=== PATIENT | female | born 1985 | race Caucasian/White ===

== ENCOUNTER 2025-03-05 05:32 | Day surgery (SDC) | payer OTHER, SELFPAY ==
--- NOTE | 2025-03-03 14:08 | PAT.ANESEVAL ---
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 When Was Last Pacemaker Check QUESTION #4 FULL TEXT: You/Your Family Experience fever (hyperthermia) with Anesthesia Last Oral Intake Last Oral intake: Last Oral Intake NPO since Meds taken in AM with sips of water? Meds patient instructed to take am of surgery PONV PONV - inside sales account manager: PONV - inside sales account manager Female Yes 03/03/25 09:55 HX of Motion Sickness Yes 03/03/25 09:55 HX of N/V After Surgery No 03/03/25 09:55 Non-Smoker Yes 03/03/25 09:55 Duration of Surgery greater No 03/03/25 09:55 than 60 minutes Number of Risk Factors 3 03/03/25 09:55 PONV Score Moderate Risk 03/03/25 09:55 Respiratory Assessment Respiratory Assessment - inside sales account manager: Respiratory Tract Infection Hx - inside sales account manager Hx Respiratory Tract Infection No 03/03/25 09:55 STOP Sleep Apnea STOP Sleep Apnea - inside sales account manager: STOP Sleep Apnea - inside sales account manager Hx Hypertension No 03/03/25 09:55 Hx Sleep Apnea No 03/03/25 09:55 CPAP BIPAP Do you snore loudly (louder No 03/03/25 09:55 than talking or can be heard Do you often feel tired/ No 03/03/25 09:55 fatigued/ sleepy during daytime? Has anyone observed you stop No 03/03/25 09:55 breathing during sleep? STOP Results Negative 03/03/25 09:55 QUESTION #5 FULL TEXT : Do you snore loudly (louder than talking or can be heard through closed doors)? 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 Specify any problems Hx of Preganancy in last 3 No 03/03/25 09:55 Months Nurse Filling Out Transfusion VCHRISTIN 03/03/25 09:55 & Questions: Date: 03/03/25 03/03/25 09:55 Time: :57 03/03/25 09:55 Patient unable to answer at this time (ie. confused, unrespo /Reproduction History /Reproductive History - inside sales account manager: /Reproductive Hx- inside sales account manager Hx Now No 03/03/25 09:55 Gestational Age (in weeks): EDC: Hx Hx Para Hx Section SAB No 03/03/25 09:55 PFSH Medical History (Updated 03/03/25 @ 10:02 by Shannan Mcgregor) Normal Holter exam Wears glasses Pulmonary embolism History of diverticulitis Non-smoker CPAP (continuous positive airway pressure) dependence Sleep apnea Cardiology follow-up encounter History of irregular heartbeat Vitamin D deficiency Tinnitus Vertigo Thyromegaly T12 vertebral fracture Split S2 (second heart sound) Rectal bleeding PCOS (polycystic ovarian syndrome) Parathyroid adenoma AMOR (obstructive sleep apnea) Migraine with aura Hyperphosphatemia HLD (hyperlipidemia) Hemorrhoid Dizziness DDD (degenerative disc disease), lumbar Chronic kidney disease, stage 3a Acute low back pain without sciatica Left nephrolithiasis LUQ pain Home Medications Medication Instructions Recorded Last Taken Type cholecalciferol (vitamin D3) 50 50 mcg PO QDAY 01/24/25 Unknown History mcg (2,000 unit) capsule multivitamin 1 tab PO QAM 01/24/25 Unknown History dicyclomine 20 mg tablet 20 mg PO TID PRN abdominal pain 01/27/25 Unknown Rx #20 tabs Allergy/AdvReac Type Severity Reaction Status Date / Time bacitracin Allergy Intermediate Other Verified 03/03/25 09:46 Family History Father Hypertension HLD (hyperlipidemia) Surgical History (Updated 03/03/25 @ 09:55 by Shannan Mcgregor) History of removal of skin mole S/P left knee arthroscopy Social History Smoking Status: Never smoker alcohol intake: current alcohol intake frequency: a few times a month Audit: Pertinent Findings Pertinent Findings EKG Perinent findings: 06/25/2021. Normal sinus rhythm. Consult pertinent findings: August 22, 2022. Dr. Schneider. 1. Pulmonary embolism-patient's been off Xarelto since December 2021 per the primary care provider. No further DVT or PEs. 2. Dizziness-Holter last year showed no significant arrhythmias. No further episode of dizziness this last year. Additional pertinent findings: Holter monitor. 07/26/2021. 1. Predominant rhythm is sinus. No episodes of atrial fibrillation/flutter, SVT, heart block, or ventricular tachycardia. 2. Patient reported symptoms did not correlate with any EKG changes. Recommendation Anesthesia Recommendation Anesthesia recommendation: OPTIMIZED for anesthesia
[2025-03-05] VITALS (8 sets, daily range): BP systolic 82–122; BP diastolic 44–86; PULSE 60–68; RESP 16–18; TEMP 36.4–36.8; O2SAT 97–99; BMI 37.4
--- OUTSIDE RECORDS SUMMARY | 2025-03-05 05:36 | XMS RPT_ITS | CCD ---
Author Organization [facility] Care Team Providers Care Field Installation Technician Name Role Phone MACY BREWER, GERMAINE Muse Primary Care Physician Unavailable Primary Care Provider GERMAINE Guerra MD Primary Care Physician ORLANDO DO, DR MENON Primary Care Physician ([id number] BRISA DIA DC Attending Unavailable ROMAR DO, DR MENON Primary Care Unavailable ROMAR DO, DR MENON Attending Unavailable ROMAR DO, DR MENON Primary Care Unavailable ROMAR DO, DR MENON Attending Unavailable ROMAR DO, DR MENON Primary Care Unavailable ROMAR DO, DR MENON Attending Unavailable ROMAR DO, DR MENON Primary Care Unavailable TOSCANO FEATURE WRITER-MALTER OPERATOR, RYANNE Attending Unavailabl e ROMAR DO, DR MENON Primary Care Unavailable ROMAR DO, DR MENON Attending Unavailable ROMAR DO, DR MENON Primary Care Unavailable ROMAR DO, DR MENON Primary Care Unavailable DORCAS FEATURE WRITER-MALTER OPERATOR, RYANNE Attending Unavailabl e TOSCANO FEATURE WRITER-MALTER OPERATOR, RYANNE Attending Unavailabl e ROMAR DO, DR MENON Primary Care Unavailable ROYCE EDGE Primary Care Unavailable ROYCE EDGE Attending Unavailable LENORA MANZANO MD Attending Unavailable ROYCE EDGE Primary Care Unavailable LENORA MANZANO MD Attending Unavailable ROYCE EDGE Primary Care Unavailable LENORA MANZANO MD Attending Unavailable ROYCE EDGE Primary Care Unavailable ROYCE EDGE Attending Unavailable ROYCE EDGE Primary Care Unavailable ROYCE EDGE Attending Unavailable ROYCE EDGE Primary Care Unavailable ROYCE EDGE Attending Unavailable ROYCE EDGE Primary Care Unavailable ROYCE EDGE Primary Care Unavailable LENORA MANZANO MD Attending Unavailable ROYCE EDGE Primary Care Unavailable CHOUJAA DO, JUHI Attending Unavailable ROYCE EDGE Primary Care Unavailable LENORA MANZANO MD Attending Unavailable ROYCE EDGE Primary Care Unavailable ROYCE EDGE Attending Unavailable ROYCE EDGE Primary Care Unavailable ROYCE EDGE Attending Unavailable Orlando WOODS, Dr. Menon Primary Care Provider Orlando WOODS, Dr. Menon Referring Provider Aj SORIANO-CKassie Attending Provider [phone] ORLANDO WOODS, DR MENON Attending Unavailable ORLANDO WOODS, DR MENON Primary Care Unavailable MERRITT FAN Attending Unavailable ORLANDO WOODS, DR MENON Primary Care Unavailable GUERLINE PATEL Attending U navailable ORLANDO WOODS, DR MENON Primary Care Unavailable Royce Edge Referring Unavailable Royce Edge Primary Care Unavailable Kassie Rocha Attending Unavailable Deon, Chad Attending Unavailable Royce Edge Referring Unavailable Royce Edge Primary Care Unavailable Allergies Allergy Classification Reported Allergen(s) Allergy Type Date of Onset Reaction(s) Facility (19 sources) Bacitracin; Translations: [bacitracin] Drug Allergy 5 Hot (qualifier value), Tender (qualifier value), Red color (finding) [facility] Comment on above: red, tenderness (1 source) Bacitracin Drug Allergy 5 [facility] Repository Medications Current Medications Medication Drug Class(es) Dates Sig (Normalized) Sig (Original) Alive Women's Energy (15 sources) Start: 11-08-2022 Alive [employer]'s Energy Oral, qDay, 0 Refill(s) Start Date: 11/08/22 Status: Ordered Repeat number: 1 Start: 11-08-2022 Alive [employer] Oral, qDay, 0 Refill(s) Start Date: 11/08/22 Status: Ordered cholecalciferol 0.05 mg oral capsule (1 source) Vitamin D Start: 01-24-2025 take 1 capsule by mouth once daily Cholecalciferol (Vitamin D3) 50 mcg (2,000 unit) capsule Active 50 ug PO daily January 24, 2025 12:00am Diclofenac (1 source) Nonsteroidal Anti-inflammatory Drug Start: 11-08-2022 diclofenac Oral, 0 Refill(s) Start Date: 11/08/22 Status: Ordered dicyclomine hydrochloride 20 mg oral tablet (1 source) Anticholinergic Start: 01-27-2025 take 1 tablet by mouth three times daily as needed for pain Dicyclomine 20 mg tablet Active 20 mg PO THREE TIMES A DAY as needed for abdominal pain January 27, 2025 12:00am Elderberry preparation (3 sources) Start: 08-01-2024 take 1 mg by mouth once daily elderberry 350 mg oral capsule mg cap(s), Oral, qDay, 0 Refill(s) Start Date: 08/01/24 Status: Ordered Repeat number: 1 fluconazole 150 mg oral tablet (2 sources) Azole Antifungal Start: 08-23-2021 take 1 tablet by mouth once fluconazole 150 mg oral tablet take 1 tablet by mouth A ONE TIME DOSE Start Date: 08/23/21 Status: Ordered Jose Luis 24 FE oral tablet (1 source) Start: 06-25-2021 take 1 tablet by mouth once daily Jose Luis 24 FE oral tablet Dose = 1 tab(s), Oral, qDay, # 84 tab(s), 0 Refill(s) Start Date: 06/25/21 Status: Ordered Misc Medication (20 sources) Start: 11-05-2024 Misc Medication 0 Refill(s), 99.9 Start Date: 11/05/24 Status: Ordered Repeat number: 1 Start: 11-08-2022 Misc Medicatio n 1, Oral, Daily, calcium complete, 0 Refill(s), 103.2 Start Date: 11/08/22 Status: Ordered Start: 11-08-2022 Misc Medicatio n 1, Daily, luis enrique apple cider, 0 Refill(s), 103.2 Start Date: 11/08/22 Status: Ordered Start: 11-08-2022 Misc Medicatio n 1, Daily, luis enrique superfruit, 0 Refill(s), 103.2 Start Date: 11/08/22 Status: Ordered Start: 11-08-2022 Misc Medicatio n 1, Oral, Daily, tristen out, 0 Refill(s), 103.2 Start Date: 11/08/22 Status: Ordered Start: 06-25-2021 Misc Medicatio n Vitalife shot 1 1/2 tsp daily, 0 Refill(s), 100 Start Date: 06/25/21 Status: Ordered Start: 06-25-2021 [facility] Evolv limitless betalain supplement, 0 Refill(s), 100 Start Date: 06/25/21 Status: Ordered Start: 06-25-2021 [facility] Evolv blaance horomone support, 0 Refill(s), 100 Start Date: 06/25/21 Status: Ordered Start: 06-25-2021 [facility] n Evolv immun immune support, 0 Refill(s), 100 Start Date: 06/25/21 Status: Ordered Multivitamin preparation (3 sources) Start: 11-27-2024 take 1 tablet by mouth once daily Multivitamin Dose = 1 tab(s), Oral, Daily, 0 Refill(s) Start Date: 11/27/24 Status: Ordered Repeat number: 1 Start: 06-25-2021 take 1 tablet by annabella th once daily Multivitamin Dose = 1 tab(s), Oral, Daily, Vitality, 0 Refill(s) Start Date: 06/25/21 Status: Ordered Multivitamin tablet (1 source) Start: 01-24-2025 Multivitamin t ablet Active 1 {tbl} PO EVERY MORNING January 24, 2025 12:00am rivaroxaban 20 mg oral tablet (2 sources) Factor Xa Inhibitor Start: 08-23-2021 take 1 tablet by mouth once daily Xarelto 20 mg oral tablet TAKE 1 TABLET BY MOUTH EVERY DAY Start Date: 08/23/21 Status: Ordered Start: 07-13-2021 End: 08-03-2021 Xarelto 15 mg oral tablet Do se : 15 mg = 1 tab(s), Oral, BID, with food, # 42 tab(s), 0 Refill(s), 104.5 Start Date: 07/13/21 Stop Date: 08/03/21 Status: Ordered Vitamin D3 (18 sources) Start: 06-25-2021 Vitamin D3 Dos e : 2,000 unit(s) = 1 tab(s), Oral, Daily, # 60 tab(s), 0 Refill(s) Start Date: 06/25/21 Status: Ordered Quantity: 60.0 Unit: tab(s) Repeat number: 1 Start: 06-25-2021 Vitamin D3 Dos e : 2,000 unit(s) = 1 tab(s), Oral, Daily, # 60 tab(s), 0 Refill(s) Start Date: 06/25/21 Status: Ordered Vitamin D3 50 mcg (2000 intl units) oral capsule (13 sources) Start: 11-08-2022 Vitamin D3 50 mcg (2000 intl units) oral capsule Dose : 50 mcg = 1 cap(s), Oral, qDay, # 60 cap(s), 0 Refill(s) Start Date: 11/08/22 Status: Ordered Quantity: 60.0 Unit: cap(s) Repeat number: 1 Start: 11-08-2022 Vitamin D3 50 mcg (2000 intl units) oral capsule Dose : 50 mcg = 1 cap(s), Oral, qDay, # 60 cap(s), 0 Refill(s) Start Date: 11/08/22 Status: Ordered Completed/Discontinued Medications Medication Drug Class(es) Dates Sig (Normalized) Sig (Original) methocarbamol 750 mg oral tablet (8 sources) Muscle Relaxant Start: 01-24-2025 End: 01-27-2025 take 2 tablets by mouth three times daily as needed Methocarbamol 750 mg tablet Discontinued 1500 mg PO THREE TIMES A DAY as needed January 24, 2025 12:00am January 27, 2025 8:59am Start: 07-03-2024 End: 07-10-2024 methocarbamol 750 mg oral ta blet Dose : 1,500 mg = 2 tab(s), Oral, TID, PRN Muscle spasm, Do not drive, operate heavy machinery, or drink alcohol while on this medication., # 42 tab(s), 0 Refill(s), Pharmacy: [facility] #[id number], 165.7, cm, 07/03/24 14:28:00 EST, Height, kg, 07/03/24 14:28:00 EST, Dosing Weight Start Date: 07/03/24 Stop Date: 07/10/24 Status: Ordered Quantity: 42.0 Unit: tab(s) Repeat number: 1 SUMAtriptan 50 mg oral tablet (18 sources) Serotonin-1b and Serotonin-1d Receptor Agonist Start: 01-24-2025 End: 01-27-2025 take 1 tablet by mouth once Sumatriptan Succinate 50 mg tablet Discontinued 50 mg PO ONCE January 24, 2025 12:00am January 27, 2025 8:59am Start: 08-23-2021 SUMAtriptan 50 mg oral tablet Dose : 50 mg = 1 tab(s), Oral, take 1 tablet by mouth if needed AT ONSET OF HEADACHE may repeat ... (REFER TO PRESCRIPTION NOTES). Start Date: 08/23/21 Status: Ordered Repeat number: 1 Problems Active Problems Problem Classification Problem Date Documented Da te Episodic/Chronic Abdominal pain (12 sources) Left upper quadrant pain; Translations: [Left upper quadrant pain] Onset: 4 Episodic Biliary tract disease (4 sources) Biliary calculus 07-15-2024 Episodic Calculus of urinary tract (11 sources) Kidney stone 07-03-2024 Episodic Chronic kidney disease (17 sources) Chronic kidney disease stage 2; Translations: [Chronic kidney disease stage 3A ] 11-08-2022 Chronic Chronic kidney disease (2 sources) Chronic kidney disease; Translations: [Chronic kidney disease, stage 3a] Onset: 5 Conditions associated with dizziness or vertigo (20 sources) Dizziness; Translations: [Vertigo] 06-25-2021 Episodic Deficiency and other anemia (2 sources) Anemia in chronic kidney disease; Translations: [Anemia in chronic kidney disease] Onset: 5 Chronic Disorders of lipid metabolism (20 sources) Hyperlipidemia; Translations: [Mixed hyperlipidemia] 06-25-2021 Chronic Comment on above: 12/04 modified ASCVD risk 0.8% 11/04 ascvd risk 0.8% Diverticulosis and diverticulitis (13 sources) Diverticulitis of colon; Translations: [Diverticulosis of colon] Onset: 5 07-15-2024 Chronic Gastrointestinal hemorrhage (16 sources) Rectal hemorrhage 11-08-2022 Episodic Headache; including migraine (16 sources) Migraine with aura 11-08-2022 Chronic Heart valve disorders (15 sources) Second heart sound split 12-26-2022 Episodic Hemorrhoids (18 sources) Hemorrhoids 09-12-2013 Episodic Immunizations and screening for infectious disease (2 sources) Encounter for screening for human papillomavirus (HPV); Translations: [Encounter for screening for human papillomavirus (HPV)] Onset: 5 Episodic Nutritional deficiencies (16 sources) Vitamin D deficiency 11-08-2022 Chronic Other and unspecified benign neoplasm (15 sources) Parathyroid adenoma 12-26-2022 Episodic Other bone disease and musculoskeletal deformities (4 sources) Osteitis condensans ilii 07-17-2024 Episodic Other complications of ; puerperium affecting management of mother (18 sources) Large for gestation age fetus 02-22-2016 Episodic Other complications of (18 sources) Term of male 02-22-2016 Episodic Other ear and sense organ disorders (15 sources) Lesion of right external ear canal 12-23-2022 Episodic Other ear and sense organ disorders (1 source) Disorder of external ear; Translations: [Disorder of right external ear, unspecified] Episodic Other endocrine disorders (16 sources) Polycystic ovary syndrome 11-11-2022 Chronic Other gastrointestinal disorders (1 source) Mass of right ovary 11-05-2024 Episodic Other non-traumatic joint disorders (1 source) Pain in right wrist; Translations: [Pain in right wrist] Onset: Episodic Other nutritional; endocrine; and metabolic disorders (2 sources) Obesity 09-12-2013 Chronic Other nutritional; endocrine; and metabolic disorders (16 sources) Body mass index 30+ - obesity 11-08-2022 Chronic Other nutritional; endocrine; and metabolic disorders (15 sources) Hyperphosphatemia 12-30-2022 Chronic Other skin disorders (18 sources) Keloid scar 09-12-2013 Episodic Pneumonia (except that caused by tuberculosis or sexually transmitted disease) (17 sources) Pneumonia (except that caused by tuberculosis or sexually transmitted disease) 08-23-2021 Pulmonary heart disease (17 sources) Pulmonary embolism; Translations: [H/O: pulmonary embolus] 07-13-2021 Episodic Comment on above: 07/04 Residual codes; unclassified (20 sources) Obstructive sleep apnea syndrome 06-25-2021 Chronic Spondylosis; intervertebral disc disorders; other back problems (18 sources) Degeneration of lumbar intervertebral disc 06-25-2021 Chronic Spondylosis; intervertebral disc disorders; other back problems (8 sources) Low back pain; Translations: [Low back pain, unspecified] Episodic Thyroid disorders (16 sources) Goiter 11-08-2022 Chronic Unclassified (2 sources) Breast feeding (infant) (observable entity) 02-22-2016 Comment on above: System added from do cumentation. Breast feeding Status documented as Yes on Admission Unclassified (18 sources) Pigmented nevus (morphologic abnormality) 09-12-2013 Comment on above: Scalp Unclassified (17 sources) History of SARS-CoV-2 07-13-2021 Unclassified (16 sources) Fracture of twelfth thoracic vertebra 11-08-2022 Viral infection (1 source) Disease caused by 2019-nCoV 08-23-2021 Past or Other Problems Problem Classification Problem Date Documented Da te Episodic/Chronic Other upper respiratory infections (4 sources) Acute upper respiratory infection, unspecified; Translations: [Acute pharyngitis, unspecified] Onset: 05-05-2023 Episodic Results Test Name Value Interpretation Reference Range Facility MR/[facility] 03-03-[facility]25 [facility] Medical Records Department [address] [place] [address] PAT - Anesthesia 03/03/25 1408 MR#: [id number] Acct: [id number] Name: LUC GARCIA Rep #: [id number] : 1985 39 From: Stiven Zepeda MD PCP: Dr. 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 When Was Last Pacemaker Check QUESTION #4 FULL TEXT: You/Your Family Experience fever (hyperthermia) with Anesthesia Last Oral Intake Last Oral intake: Last Oral Intake NPO since Meds taken in AM with sips of water? 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 Female Yes 03/03/25 09:55 HX of Motion Sickness Yes 03/03/25 09:55 HX of N/V After Surgery No 03/03/25 09:55 Non-Smoker Yes 03/03/25 09:55 Duration of Surgery greater No 03/03/25 09:55 than 60 minutes Number of Risk Factors 3 03/03/25 09:55 PONV Score Moderate Risk 03/03/25 09:55 Respiratory Assessment Respiratory Assessment - blow molding machine operator: Respiratory Tract Infection Hx - blow molding machine operator Hx Respiratory Tract Infection No 03/03/25 09:55 STOP Sleep Apnea STOP Sleep Apnea - blow molding machine operator: STOP Sleep Apnea - blow molding machine operator Hx Hypertension No 03/03/25 09:55 Hx Sleep Apnea No 03/03/25 09:55 CPAP BIPAP Do you snore loudly (louder No 03/03/25 09:55 than talking or can be heard Do you often feel tired/ No 03/03/25 09:55 fatigued/ sleepy during daytime? Has anyone observed you stop No 03/03/25 09:55 breathing during sleep? STOP Results Negative 03/03/25 09:55 QUESTION #5 FULL TEXT : Do you snore loudly (louder than talking or can be heard through closed doors)? 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 Specify any problems Hx of Preganancy in last 3 No 03/03/25 09:55 Months Nurse Filling Out Transfusion VCHRISTIN 03/03/25 09:55 Questions: Date: 03/03/25 03/03/25 09:55 Time: 09:57 03/03/25 09:55 Patient unable to answer at this time (ie. confused, unrespo /Reproductio n History /Reproductiv e History - blow molding machine operator: /Reproductiv e Hx- blow molding machine operator Hx Now No 03/03/25 09:55 Gestational Age (in weeks): EDC: Hx Hx Para Hx Section SAB No 03/03/25 09:55 PFSH Medical History (Updated 03/03/25 @ 10:02 by Shannan Mcgregor) Normal Holter exam Wears glasses Pulmonary embolism History of diverticulitis Non-smoker CPAP (continuous positive airway pressure) dependence Sleep apnea Cardiology follow-up encounter History of irregular heartbeat Vitamin D deficiency Tinnitus Vertigo Thyromegaly T12 vertebral fracture Split S2 (second heart sound) Rectal bleeding PCOS (polycystic ovarian syndrome) Parathyroid adenoma AMOR (obstructive sleep apnea) Migraine with aura Hyperphosphatemia HLD (hyperlipidemia) Hemorrhoid Dizziness DDD (degenerative disc disease), lumbar Chronic kidney disease, stage 3a Acute low back pain without sciatica Left nephrolithiasis LUQ pain Home Medications ???Medication ???Instructions ???Recorded ???Last Taken ???Type cholecalciferol (vitamin D3) 50 50 mcg PO QDAY 01/24/25 Unknown Hi story mcg (2,000 unit) capsule multivitamin 1 tab PO QAM 01/24/25 Unknown Hist ory dicyclomine 20 mg tablet 20 mg PO TID PRN abdominal pain Unknown Rx #20 tabs Allergy/ (more content not included)... Normal [facility] Gastroenterology Visit Repor ton 01-27-2025 Gastroenterology Visit Report [facility] [address] [place] [address] OFFICE VISIT Date of Service: 01/27/25 MR#: [id number] Acct: [id number] Name: LUC GARCIA Rep #: [id number] : 1985 Provider: NELI kessler Age/Sex: 39/F Location: [email or web address] Status: Signed Intake Intake Visit Reasons: DIVERTICULITIS Allergies bacitracin Allergy (Intermediate, Verified 01/27/25 08:59) Other Medications ???Medication ???Instructions ???Recorded ???Confirmed ???Type cholecalciferol (vitamin D3) 50 50 mcg PO QDAY 01/24/25 01/24/25 H istory mcg (2,000 unit) capsule multivitamin 1 tab PO QAM 01/24/25 01/24/25 His tory dicyclomine 20 mg tablet 20 mg PO TID PRN abdominal pain 01/27/25 Rx #20 tabs PFSH Medical History Vitamin D deficiency Tinnitus Vertigo Thyromegaly T12 vertebral fracture Split S2 (second heart sound) Rectal bleeding PCOS (polycystic ovarian syndrome) Parathyroid adenoma AMOR (obstructive sleep apnea) Migraine with aura Hyperphosphatemia HLD (hyperlipidemia) Hemorrhoid Dizziness DDD (degenerative disc disease), lumbar Chronic kidney disease, stage 3a Acute low back pain without sciatica Left nephrolithiasis LUQ pain Surgical History S/P left knee arthroscopy Family History Father Hypertension HLD (hyperlipidemia) Social History Smoking Status: Never smoker alcohol intake: current alcohol intake frequency: a few times a month HPI HPI Details: LUC GARCIA, is a 39 F who presents to the office today for establishment with [facility] regarding concerns for repeat diverticulitis. Referral received from general surgery for a colonoscopy to be completed prior to considering partial hemicolectomy due to recurrent episodes of diverticulitis in the same area of the colon. She had CTs of the abdomen and pelvis in July 2024 and November 2024, per "both demonstrated evidence of focal diverticulitis of the distal left colon/ proximal sigmoid. The inflammatory changes are much more visible and pronounced on the second CT in November which correlates with her symptoms which were significantly more severe in November when compared to July." She reports having gallstones without inflammation, digestive complaints, or pain in that area. In December she was prescribed a 10 day treatment regimen of Cipro and Flagyl for the colitis, and then subsequently needed drug therapy for a severe vaginal yeast infection. She denies difficulty chewing and swallowing, heartburn, reflux, nausea, emesis, abdominal bloating, constipation since starting daily fiber supplementation, diarrhea, hematochezia, and melena. Her last colonoscopy was in 2022 for hematochezia, found bleeding internal hemorrhoid which was removed and a single polyp that came back as a tubular adenoma. She does report chronic kidney disease stage III, which is being investigated. 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 She reports they suspect chronic NSAID use for the renal impairment. ROS Const Constitutional: No chills, fatigue, fever(s) or weight change Eyes Eyes: No change in vision ENT ENT: No abnormal hearing or difficulty swallowing Resp Respiratory: No cough Cardio Cardiology: Positive for leg pain with exertion; No chest pain at rest or chest pain with exertion Gastro GI: Positive for abdominal pain, heartburn and Blood in stool; No belching, bloating, change in bowel habits, change in stool character, coffee ground emesis, constipation, cramping, diarrhea, difficulty swallowing, feeling full early, excessive flatus, incontinent of stools, Vomiting blood/hematemesis, loose stools, Black,tarry stools, nausea/dyspepsia, pain with swallowing, vomiting or other Musc Musculoskeletal: Positive for joint pain, back pain, muscle cramps, muscle weakness, numbness, stiffness, tingling, Arthritis and leg pain with exertion Skin Skin: No yellowing of the eye or itchy eyes Neuro Neurology: Positive for numbness and tingling; No abnormal hearing Psych Psychiatric: No anxiety and No depression Endo Endocrine: No cold intolerance, fatigue, heat intolerance or weight change Aller/Imm Allergy/Immunologic: No food intolerance or itchy eyes Trell/Lymp Hematologic/Lymphatic : No easy bleeding or easy bruising Exam Const General: cooperative, healthy appearing, comfortable and no acute distress Nutritional Appearance: overweight Orientation: alert and oriented x3 HENMT Head: normal to inspection Ears: hearing grossly normal bilaterally Eyes General: appearance normal, both eyes and all re (more content not included)... Normal [facility] FCALon 01-10-2025 Calprotectin <30 Normal [facility] Comment on above: Result Comment: Calprotectin Concentration Interpretation Follow-up <80mcg/gm Normal None 80-160 mcg/gm Borderline Reevaluate in 4 to 6 weeks >160 mcg/gm Abnormal Repeat as clincally indicated Performed By: #### P TONI UA #### [facility] [address], [place] [address] [facility] [employer] [facility] Cytology Reporton 2024 [facility] Mail Clerk Cytology Report . Pathology Reports Accession: Collected Date/Time: Received Date/Time: Pathologist: [id number] 12/16/2024 14:02 EDT 12/16/2024 18:00 EDT [facility] [employer] [facility] Cytology Report SPECIMEN: Specimen Description: Liquid Prep w Imaging and HPV Specimen: cervix Screening or Diagnostic: screening RELEVANT HISTORY: LMP: 12/04/24 SPECIMEN ADEQUACY: SATISFACTORY FOR EVALUATION Endocervical/Transfor mational zone component present INTERPRETATION/RESULT S: NEGATIVE FOR INTRAEPITHELIAL LESION OR MALIGNANCY HIGH RISK HPV TESTING: Event Code Result HPV Interp See Interp HPVN HPV Interp Text: High Risk HPV Typing: NEGATIVE HPV types 16, 18, 31, 33, 35, 39, 45, 51, 52, 56, 58, 59, 66 and 68 DNA were undetectable or below the pre-set threshold. The gracia High-Risk HPV DNA Test is not intended for use as a screening device for Pap normal women under age 30 and is not intended to substitute for regular Pap screening. The gracia High-Risk HPV DNA Test is designed to augment existing methods for the detection of cervical disease and should be used in conjunction with clinical information derived from other diagnostic and screening tests, physical examinations and full medical history in accordance with appropriate patient management procedures. NOTE: A negative result does not preclude the presence of HPV infection because results depend on adequate specimen collection, absence of inhibitors and sufficient DNA to be detected. As of: 12/19/24 14:55 EDT COMMENT: This Pap Test was successfully processed and evaluated with the assistance of the [employer] Test Imaging System. Pathology Reports Accession: Collected Date/Time: Received Date/Time: Pathologist: [id number] 12/16/2024 14:02 EDT 12/16/2024 18:00 EDT Verified by Pathology report verified by [facility] Screened by: BOGDAN Electronically signed by Sindhu VARGAS (ASCP) Sign-Out Date: 12/19/2024 14:56 Performing Lab: [facility], [address] [place] [address] Pathology Dept Disclaimer The Pap test is a screening test for cervical cancer. As evidenced by published data, it is subject to both inherent false negative and false positive results. Your patient's results should be interpreted in context with pertinent clinical history including gynecological examination. Normal [facility] HPVon 12-19-2024 HPV Interp Normal See Interp HPVN [facility] Comment on above: Order Comment: Order placed by AP_HPV_ORDER rule from [id number] Result Comment: High Risk HPV Typing: NEGATIVE HPV types 16, 18, 31, 33, 35, 39, 45, 51, 52, 56, 58, 59, 66 and 68 DNA were undetectable or below the pre-set threshold. The gracia High-Risk HPV DNA Test is not intended for use as a screening device for Pap normal women under age 30 and is not intended to substitute for regular Pap screening. The gracia High-Risk HPV DNA Test is designed to augment existing methods for the detection of cervical disease and should be used in conjunction with clinical information derived from other diagnostic and screening tests, physical examinations and full medical history in accordance with appropriate patient management procedures. NOTE: A negative result does not preclude the presence of HPV infection because results depend on adequate specimen collection, absence of inhibitors and sufficient DNA to be detected. See [facility] HPVN Performed By: #### H PV #### [place] [address] HPV Source Cervix Normal [facility] Comment on above: Order Comment: Order placed by AP_HPV_ORDER rule from [id number] Performed By: #### H PV #### [place] [address] .Auto Diffon 11-21-2024 Basophil, Absolute 0.1 10 3/mcL Normal 0.0-0.3 [facility] Comment on above: Performed By: #### C MP, LIP, ANEU, GFR, CBC, ADIFF #### [address] [address] Basophils/100 WBC (Bld) 0.8 % Normal 0.0-2.5 [facility] Comment on above: Performed By: #### C MP, LIP, ANEU, GFR, CBC, ADIFF #### [address] [address] Eosinophil, Absolute 0.1 10 3/mcL Normal 0.0-0.7 [facility] Comment on above: Performed By: #### C MP, LIP, ANEU, GFR, CBC, ADIFF #### [address] [address] Eosinophils/100 WBC (Bld) 1.1 % Normal 0.0-6.0 [facility] Comment on above: Performed By: #### C MP, LIP, ANEU, GFR, CBC, ADIFF #### [address] [address] Lymphocyte, Absolute 1.6 10 3/mcL Normal 0.9-4.3 [facility] Comment on above: Performed By: #### C MP, LIP, ANEU, GFR, CBC, ADIFF #### [address] [address] Lymphocytes/100 WBC (Bld) 18.3 % Low 20.0-40.0 [facility] Comment on above: Performed By: #### C MP, LIP, ANEU, GFR, CBC, ADIFF #### [address] [address] Monocyte, Absolute 0.5 10 3/mcL Normal 0.1-1.4 [facility] Comment on above: Performed By: #### C MP, LIP, ANEU, GFR, CBC, ADIFF #### [address] [address] Monocytes/100 WBC (Bld) 5.5 % Normal 2.0-13.0 [facility] Comment on above: Performed By: #### C MP, LIP, ANEU, GFR, CBC, ADIFF #### [address] [address] Neutrophils/100 WBC (Bld) 74.3 % Normal 50.0-75.0 [facility] Comment on above: Performed By: #### C MP, LIP, ANEU, GFR, CBC, ADIFF #### [address] [address] .GFRon 11-21-2024 Estimated Glomerular Filtration Rate 60 ml/min/1.73sqm Normal [facility] Comment on above: Result Comment: Stages of Chronic Kidney Disease (CKD) Stage Description eGFR(ml/min/1.73 sq.m.) CKD 1 Normal kidney function or >=90 normal kindney function with possible kidney damage (ex. Proteinuria) CKD 2 Kidney damage with mild loss 60-89 of kidney function CKD 3a Mild to moderate loss of kidney 45-59 function CKD 3b Moderate to severe loss of 30-44 of kindey function CKD 4 Severe loss of kidney function 15-29 CKD 5 Kidney failure <15 Note: (go live 2024) the eGFR calculation was updated to the 2020 CKD-EPI creatinine equation without a race factor to calculate the eGFR results. Performed By: #### C MP, LIP, ANEU, GFR, CBC, ADIFF #### [place] [phone] .MDWon 11-21-2024 Monocyte Distribution Width 19.94 Normal 0.00-20.00 [facility] Comment on above: Result Comment: For ED adult patients suspected of sepsis, MDW<=20.0 does not rule out sepsis or risk of sepsis Performed By: #### C MP, LIP, ANEU, GFR, CBC, ADIFF #### [place] [address] .NEUABSon 11-21-2024 Neutrophil, Absolute 6.5 10 3/mcL Normal 2.3-8.1 [facility] Comment on above: Performed By: #### C MP, LIP, ANEU, GFR, CBC, ADIFF #### [place] [address] CBCon 11-21-2024 Erythrocyte distribution width (RBC) [Ratio] 14.3 % Normal 11.5-15.5 [facility] Comment on above: Performed By: #### C MP, LIP, ANEU, GFR, CBC, ADIFF #### [place] [address] Hematocrit (Bld) [Volume fraction] 39.2 % Normal 34.0-46.0 [facility] Comment on above: Performed By: #### C MP, LIP, ANEU, GFR, CBC, ADIFF #### [place] [address] Hgb 13.1 G/dL Normal 12.0-16.0 [facility] Comment on above: Performed By: #### C MP, LIP, ANEU, GFR, CBC, ADIFF #### [address] [address] MCH (RBC) [Entitic mass] 29.5 pg Normal 27.0-33.0 [facility] Comment on above: Performed By: #### C MP, LIP, ANEU, GFR, CBC, ADIFF #### [address] [address] MCHC 33.3 G/dL Normal 32.0-36.0 [facility] Comment on above: Performed By: #### C MP, LIP, ANEU, GFR, CBC, ADIFF #### [address] [address] MCV (RBC) [Entitic vol] 88.6 fL Normal 80.0-99.0 [facility] Comment on above: Performed By: #### C MP, LIP, ANEU, GFR, CBC, ADIFF #### [address] [address] Platelet 223 10 3/mcL Normal 150-450 [facility] Comment on above: Performed By: #### C MP, LIP, ANEU, GFR, CBC, ADIFF #### [address] [address] Platelet mean volume (Bld) [Entitic vol] 7.3 fL Normal 6.6-10.5 [facility] Comment on above: Performed By: #### C MP, LIP, ANEU, GFR, CBC, ADIFF #### [address] [address] RBC 4.42 10 6/mcL Normal 4.10-5.30 [facility] Comment on above: Performed By: #### C MP, LIP, ANEU, GFR, CBC, ADIFF #### [address] [address] WBC 8.7 10 3/mcL Normal 4.5-10.8 [facility] Comment on above: Performed By: #### C MP, LIP, ANEU, GFR, CBC, ADIFF #### [address] [address] CMPon 11-21-2024 Albumin Level 3.6 G/dL Normal 3.5-5.0 [facility] Comment on above: Performed By: #### C MP, LIP, ANEU, GFR, CBC, ADIFF #### [place] [phone] Albumin/Globulin [Mass ratio] 1.0 {ratio} Low 1.1-2.5 [facility] Comment on above: Performed By: #### C MP, LIP, ANEU, GFR, CBC, ADIFF #### [place] [address] ALP [Catalytic activity/Vol] 72 U/L Normal 40-135 [facility] Comment on above: Performed By: #### C MP, LIP, ANEU, GFR, CBC, ADIFF #### [place] [address] ALT [Catalytic activity/Vol] 19 U/L Normal 14-59 [facility] Comment on above: Performed By: #### C MP, LIP, ANEU, GFR, CBC, ADIFF #### [place] [id number] AST [Catalytic activity/Vol] 9 U/L Low 10-40 [facility] Comment on above: Performed By: #### C MP, LIP, ANEU, GFR, CBC, ADIFF #### [address] [address] Bili Total 0.4 mg/dL Normal 0.2-1.0 [facility] Comment on above: Result Comment: Use of this assay is not recommended for patients undergoing treatment with eltrombopag due to the potential for falsely elevated results. Performed By: #### C MP, LIP, ANEU, GFR, CBC, ADIFF #### [place] [phone] BUN/Creatinine Ratio 10 ratio Normal 7-27 [facility] Comment on above: Performed By: #### C MP, LIP, ANEU, GFR, CBC, ADIFF #### [address] [address] Calcium [Mass/Vol] 8.5 mg/dL Normal 8.4-10.2 [facility] Comment on above: Performed By: #### C MP, LIP, ANEU, GFR, CBC, ADIFF #### [place] [address] Chloride [Moles/Vol] 103 mmol/L Normal 98-107 [facility] Comment on above: Performed By: #### C MP, LIP, ANEU, GFR, CBC, ADIFF #### [place] [address] CO2 [Moles/Vol] 30 mmol/L High 22-29 [facility] Comment on above: Performed By: #### C MP, LIP, ANEU, GFR, CBC, ADIFF #### [place] [address] Creatinine [Mass/Vol] 1.17 mg/dL High 0.55-1.02 [facility] Comment on above: Result Comment: Test ing performed on Siemens Dimension EXL analyzer using a modified kinetic Ave technique. Performed By: #### C MP, LIP, ANEU, GFR, CBC, ADIFF #### [place] [address] Electrolyte Balance 5.0 mEq/L Normal 4.0-15.0 [facility] Comment on above: Performed By: #### C MP, LIP, ANEU, GFR, CBC, ADIFF #### [place] [address] Globulin 3.7 G/dL Normal 1.5-3.8 [facility] Comment on above: Performed By: #### C MP, LIP, ANEU, GFR, CBC, ADIFF #### [place] [address] Glucose [Mass/Vol] 86 mg/dL Normal 70-105 [facility] Comment on above: Performed By: #### C MP, LIP, ANEU, GFR, CBC, ADIFF #### [address] [address] Potassium [Moles/Vol] 3.7 mmol/L Normal 3.5-5.1 [facility] Comment on above: Performed By: #### C MP, LIP, ANEU, GFR, CBC, ADIFF #### [address] [address] Sodium [Moles/Vol] 138 mmol/L Normal 136-145 [facility] Comment on above: Performed By: #### C MP, LIP, ANEU, GFR, CBC, ADIFF #### [address] [address] Total Protein 7.3 G/dL Normal 6.4-8.2 [facility] Comment on above: Performed By: #### C MP, LIP, ANEU, GFR, CBC, ADIFF #### [address] [address] Urea nitrogen [Mass/Vol] 12 mg/dL Normal 7-18 [facility] Comment on above: Performed By: #### C MP, LIP, ANEU, GFR, CBC, ADIFF #### [address] [address] [address] ABD/PELVIS W/ IV CONTRAST ONLYon 11-21-2024 CT ABD/PELVIS W/ IV CONTRAST ONLY ORIGINAL EXAMINATION: CT OF THE ABDOMEN AND PELVIS WITH CONTRAST11/21/2024 9:[address] ABDOMEN/PELVIS WITH CONTRAST TECHNIQUE: CT of the abdomen and pelvis was performed with the administration of intravenous contrast. Multiplanar reformatted images are provided for review. Automated exposure control, iterative reconstruction, and/or weight based adjustment of the mA/kV was utilized to reduce the radiation dose to as low as reasonably achievable. COMPARISON: CT abdomen pelvis July 09, 2024 HISTORY: ORDERING SYSTEM PROVIDED HISTORY: Reason for Exam: Pt c/o lower abd and L flank pain pain FINDINGS: The size, density, and morphology of the liver, spleen, adrenals, kidneys, pancreas and unopacified loops of bowel are unremarkable. Layering calcifications within the gallbladder. The opacified aorta demonstrates normal size and morphology without aneurysmal dilation or dissection. There are no enlarged lymph nodes by pathologic size criteria. Wall thickening of the distal descending and proximal sigmoid colon with involved diverticulum. No evidence for gross perforation or abscess formation. Stranding changes of the adjacent mesentery. Appendix is normal. There is no free fluid within the pelvis. The bladder and pelvic organs have an unremarkable CT appearance. The osseous structures are without gross lytic or sclerotic lesion. The lung bases are clear. IMPRESSION: Recurrent inflammation of the distal descending colon with circumferential wall thickening while these findings may be secondary to colitis or diverticulitis underlying mass is not excluded given the appearance. Further evaluation may be obtained with colonoscopy. Interpreted by: Nilson Poe MD Preliminary Report By: Nilson Poe MD Electronically signed By Nilson Poe MD Dictated Date: 11/21/2024 9:27:28 PM Prelim Date: 11/21/2024 9:30:03 PM Sign Date: 11/21/2024 9:30:03 PM Ordering Provider: JUHI GUAJARDO Normal [facility] LIPon 11-21-2024 Lipase Level 15 U/L Low 16-77 [facility] Comment on above: Performed By: #### C MP, LIP, ANEU, GFR, CBC, ADIFF #### [place] [phone] PREGUon 11-21-2024 HCG ( test) Ql (U) Negative Normal [facility] Comment on above: Performed By: #### P REGU, UA #### [place] [address] test (u) int Not detected Invalid Interpretation Code [facility] Comment on above: Performed By: #### P REGU, UA #### [address] [address] UAon 11-21-2024 Color (U) Yellow Normal [facility] Comment on above: Performed By: #### P REGU, UA #### [address] [address] Glucose (U) [Mass/Vol] Negative Normal Negative [facility] Comment on above: Performed By: #### P REGU, UA #### [address] [address] Ketones Ql (U) Negative Normal Negative [facility] Comment on above: Performed By: #### P REGU, UA #### [place] [address] UA Appear Clear Normal Clear [facility] Comment on above: Performed By: #### P REGU, UA #### [place] [address] UA Blood Negative Normal Negative [facility] Comment on above: Performed By: #### P REGU, UA #### [place] [address] UA Leuk Est Negative Normal Negative [facility] Comment on above: Performed By: #### P REGU, UA #### [place] [address] UA Nitrite Negative Normal Negative [facility] Comment on above: Performed By: #### P REGU, UA #### [place] [address] UA pH 8.0 Normal 5.0 - 8.0 [facility] Comment on above: Performed By: #### P REGU, UA #### [place] [address] UA Protein Negative Normal Negative [facility] Comment on above: Performed By: #### P REGU, UA #### [place] [address] UA Spec Grav 1.020 Normal 1.015-1.025 [facility] Comment on above: Performed By: #### P REGU, UA #### [place] [address] UA Specimen Type Void Normal [facility] Comment on above: Performed By: #### P REGU, UA #### [place] [address] UA Urobilinogen 0.2 E.U./dL Normal 0.2-1.0 [facility] Comment on above: Performed By: #### P TONI, UA #### [place] [phone] [place] [address] Urobilinogen (U) [Mass/Vol] Negative Normal Negative [facility] Comment on above: Performed By: #### P TONI, UA #### [place] [phone] [place] [address] US PELVIS NON-OB W/TRANSVAGI NALon 11-13-2024 US PELVIS NON-OB W/TRANSVAGINAL ORIGINAL EXAMINATION: TRANSVAGINAL PELVIC ULTRASOUND 11/12/2024 TECHNIQUE: Transvaginal pelvic ultrasound was performed. COMPARISON: CT abdomen pelvis 07/09/2024 HISTORY: ORDERING SYSTEM PROVIDED HISTORY: Reason for Exam: right groin pain, right adnexal mass on CT All images are recorded and archived. FINDINGS: Measurements: Uterus: 10.5 x 5.9 x 6.7 cm Endometrial stripe: 8 mm Right Ovary:2.7 x 1.8 x 2.8 cm Left Ovary: 2.5 x 2.3 x 2.3 cm Ultrasound Findings: Uterus: Uterus demonstrates normal myometrial echotexture. Multiple subcentimeter nabothian cysts are appreciated. Endometrial stripe: Endometrial stripe is within normal limits. Right Ovary: Right ovary is within normal limits. Left Ovary: Left ovary is within normal limits. Appropriate venous and arterial blood flow seen in both ovaries. There is no discrete ovarian mass. Free Fluid: No evidence of free fluid. IMPRESSION: Unremarkable pelvic ultrasound. Previous right ovarian mass has resolved. Interpreted by: Maximino Thornton DO Preliminary Report By: Maximino Thornton DO Electronically signed By Maximino Thornton DO Dictated Date: 11/13/2024 8:27:34 AM Prelim Date: 11/13/2024 8:30:26 AM Sign Date: 11/13/2024 8:30:26 AM Ordering Provider: ROYCE Moreland [facility] .Auto Diffon 11-05-2024 Basophil, Absolute 0.1 10 3/mcL Normal 0.0-0.2 [facility] Comment on above: Performed By: #### P LUL ISAACS UA #### [place] [phone] Basophils/100 WBC (Bld) 1.0 % Normal 0.0-2.5 [facility] Comment on above: Performed By: #### P LUL ISAACS, UA #### [address] [address] Eosinophil, Absolute 0.1 10 3/mcL Normal 0.0-0.7 [facility] Comment on above: Performed By: #### P LUL IASACS, UA #### [address] [address] Eosinophils/100 WBC (Bld) 2.0 % Normal 0.0-7.0 [facility] Comment on above: Performed By: #### P LUL ISAACS, UA #### [address] [address] Lymphocyte, Absolute 2.2 10 3/mcL Normal 0.9-4.3 [facility] Comment on above: Performed By: #### P LUL ISAACS, UA #### [address] [address] Lymphocytes/100 WBC (Bld) 30.8 % Normal 20.0-40.0 [facility] Comment on above: Performed By: #### P LUL ISAACS, UA #### [address] [address] Monocyte, Absolute 0.6 10 3/mcL Normal 0.1-1.4 [facility] Comment on above: Performed By: #### P LUL ISAACS, UA #### [address] [address] Monocytes/100 WBC (Bld) 8.9 % Normal 2.0-13.0 [facility] Comment on above: Performed By: #### P LUL ISAACS, UA #### [address] [address] Neutrophils/100 WBC (Bld) 57.3 % Normal 50.0-75.0 [facility] Comment on above: Performed By: #### P LUL ISAACS UA #### [address] [address] .GFRon 11-05-2024 Estimated Glomerular Filtration Rate 61 ml/min/1.73sqm Normal [facility] Comment on above: Result Comment: Stages of Chronic Kidney Disease (CKD) Stage Description eGFR(ml/min/1.73 sq.m.) CKD 1 Normal kidney function or >=90 normal kindney function with possible kidney damage (ex. Proteinuria) CKD 2 Kidney damage with mild loss 60-89 of kidney function CKD 3a Mild to moderate loss of kidney 45-59 function CKD 3b Moderate to severe loss of 30-44 of kindey function CKD 4 Severe loss of kidney function 15-29 CKD 5 Kidney failure <15 Note: (go live 2024) the eGFR calculation was updated to the 2020 CKD-EPI creatinine equation without a race factor to calculate the eGFR results. Performed By: #### P LUL ISAACS UA #### [place] [address] .NEUABSon 11-05-2024 Neutrophil, Absolute 4.2 10 3/mcL Normal 2.3-8.1 [facility] Comment on above: Performed By: #### LUL BAUTISTA UA #### [place] [phone] CBCon 11-05-2024 Erythrocyte distribution width (RBC) [Ratio] 14.7 % Normal 11.5-15.5 [facility] Comment on above: Performed By: #### P LUL ISAACS UA #### [place] [phone] Hematocrit (Bld) [Volume fraction] 41.4 % Normal 34.0-46.0 [facility] Comment on above: Performed By: #### P LUL ISAACS UA #### [place] [address] Hgb 13.6 G/dL Normal 12.0-16.0 [facility] Comment on above: Performed By: #### P LUL ISAACS, UA #### [address] [address] MCH (RBC) [Entitic mass] 29.1 pg Normal 27.0-33.0 [facility] Comment on above: Performed By: #### LUL BAUTISTA UA #### [address] [address] MCHC 32.7 G/dL Normal 32.0-36.0 [facility] Comment on above: Performed By: #### LUL BAUTISTA, UA #### [address] [address] MCV (RBC) [Entitic vol] 89.0 fL Normal 80.0-99.0 [facility] Comment on above: Performed By: #### LUL BAUTISTA UA #### [address] [address] Platelet 310 10 3/mcL Normal 150-450 [facility] Comment on above: Performed By: #### LUL BAUTISTA UA #### [address] [address] Platelet mean volume (Bld) [Entitic vol] 7.5 fL Normal 6.6-10.5 [facility] Comment on above: Performed By: #### LUL BAUTISTA UA #### [address] [address] RBC 4.65 10 6/mcL Normal 4.10-5.30 [facility] Comment on above: Performed By: #### LUL BAUTISTA UA #### [address] [address] WBC 7.3 10 3/mcL Normal 4.5-10.8 [facility] Comment on above: Performed By: #### LUL BAUTISTA UA #### [address] [address] CMPon 11-05-2024 Albumin Level 3.5 G/dL Normal 3.5-5.0 [facility] Comment on above: Performed By: #### P LUL ISAACS, UA #### [address] [address] Albumin/Globulin [Mass ratio] 0.9 {ratio} Low 1.1-2.5 [facility] Comment on above: Performed By: #### P LUL ISAACS, UA #### [address] [address] ALP [Catalytic activity/Vol] 67 U/L Normal 40-135 [facility] Comment on above: Performed By: #### P LUL ISAACS, UA #### [address] [address] ALT [Catalytic activity/Vol] 16 U/L Normal 14-59 [facility] Comment on above: Performed By: #### P LUL ISAACS, UA #### [place] [phone] AST [Catalytic activity/Vol] 10 U/L Normal 10-40 [facility] Comment on above: Performed By: #### P LUL ISAACS, UA #### [address] [address] Bili Total 0.4 mg/dL Normal 0.2-1.0 [facility] Comment on above: Result Comment: Use of this assay is not recommended for patients undergoing treatment with eltrombopag due to the potential for falsely elevated results. Performed By: #### P LUL ISAACS, UA #### [address] [address] BUN/Creatinine Ratio 13 ratio Normal 7-27 [facility] Comment on above: Performed By: #### P LUL ISAACS, UA #### [address] [address] Calcium [Mass/Vol] 9.2 mg/dL Normal 8.4-10.2 [facility] Comment on above: Performed By: #### P RULUL Espinoza, UA #### [address] [address] Chloride [Moles/Vol] 103 mmol/L Normal 98-107 [facility] Comment on above: Performed By: #### LUL BAUTISTA UA #### [address] [address] CO2 [Moles/Vol] 30 mmol/L High 22-29 [facility] Comment on above: Performed By: #### LUL BAUTISTA, UA #### [place] [address] Creatinine [Mass/Vol] 1.16 mg/dL High 0.55-1.02 [facility] Comment on above: Result Comment: Test ing performed on Siemens Dimension EXL analyzer using a modified kinetic Ave technique. Performed By: #### LUL BAUTISTA UA #### [place] [address] Electrolyte Balance 7.0 mEq/L Normal 4.0-15.0 [facility] Comment on above: Performed By: #### LUL BAUTISTA, UA #### [place] [address] Globulin 3.9 G/dL High 1.5-3.8 [facility] Comment on above: Performed By: #### LUL BAUTISTA UA #### [place] [address] Glucose [Mass/Vol] 80 mg/dL Normal 70-105 [facility] Comment on above: Performed By: #### LUL BAUTISTA, UA #### [place] [address] Potassium [Moles/Vol] 4.0 mmol/L Normal 3.5-5.1 [facility] Comment on above: Performed By: #### LUL BAUTISTA, UA #### [place] [address] Sodium [Moles/Vol] 140 mmol/L Normal 136-145 [facility] Comment on above: Performed By: #### P RUR, CRUR, UA #### [place] [phone] [place], [place] [address] Total Protein 7.4 G/dL Normal 6.4-8.2 [facility] Comment on above: Performed By: #### P RUR, CRUR, UA #### [place] [phone] [place], [place] [address] Urea nitrogen [Mass/Vol] 15 mg/dL Normal 7-18 [facility] Comment on above: Performed By: #### P RUR, CRUR, UA #### [address] [address] LIPon 11-05-2024 Lipase Level 18 U/L Normal 16-77 [facility] Comment on above: Performed By: #### P RUR, CRUR, UA #### [address] [id number] CRURon 08-20-2024 U Creatinine 97.7 mg/dL Normal [facility] Comment on above: Performed By: #### P RUR, CRUR, UA #### [address] [address] LABORATORYOrdered By: Liam Redmond on 08-20-2024 Appearance (U) Clear (08/20/24 9:15 AM) Normal Clear AO Auto Urine SS Bilirubin Ql (U) Negative (08/20/24 9:15 AM) Normal Negative AO Auto Urine SS Color (U) Yellow (08/20/24 9:15 AM) Normal AO Auto Urine SS Glucose Test strip (U) [Mass/Vol] Negative Normal Negative AO Auto Urine SS Hemoglobin Auto test strip (U) [Mass/Vol] Negative (08/20/24 9:15 AM) Normal Negative AO Auto Urine SS Ketones Ql (U) Negative Normal Negative AO Auto Ur ine SS UA Leuk Est Negative (08/20/24 9:15 AM) Normal Negative AO Auto Urine SS UA Nitrite Negative (08/20/24 9:15 AM) Normal Negative AO Auto Urine SS UA pH 6.0 (08/20/24 9:15 AM) Normal 5.0 - 8.0 AO Auto Urine SS UA Protein Negative Normal Negative AO Auto Urine SS UA Spec Grav >=1.030 *ABN* (08/20/24 9:15 AM) Invalid Interpretation Code 1.015-1.025 AO Auto Urine SS UA Specimen Type Clean Catch (08/20/24 9:15 AM) Normal AO Auto Urine SS UA Urobilinogen 0.2 E.U./dL Normal 0.2-1.0 AO Auto Urine SS LABORATORYOrdered By: SYSTEM SYSTEM on 08-20-2024 Creatinine (U) [Mass/Vol] 97.7 mg/dL Invalid Interpretation Code AO ADM SS Protein (U) [Mass/Vol] 8 mg/dL Invalid Interpretation Code AO ADM SS PRURon 08-20-2024 U Protein 8 mg/dL Normal [facility] Comment on above: Performed By: #### P RUR, CRUR, UA #### [place] [address] UAon 08-20-2024 Color (U) Yellow Normal [facility] Comment on above: Performed By: #### P RUR, CRUR, UA #### [place] [address] Glucose (U) [Mass/Vol] Negative Normal Negative [facility] Comment on above: Performed By: #### P RUR, CRUR, UA #### [place] [address] Ketones Ql (U) Negative Normal Negative [facility] Comment on above: Performed By: #### P RUR, CRUR, UA #### [place] [address] UA Appear Clear Normal Clear [facility] Comment on above: Performed By: #### P RUR, CRUR, UA #### [place] [address] UA Blood Negative Normal Negative [facility] Comment on above: Performed By: #### P RUR, CRUR, UA #### [place] [id number] UA Leuk Est Negative Normal Negative [facility] Comment on above: Performed By: #### P RUR, CRUR, UA #### [place] [address] UA Nitrite Negative Normal Negative [facility] Comment on above: Performed By: #### P RUR, CRUR, UA #### [place] [address] UA pH 6.0 Normal 5.0 - 8.0 [facility] Comment on above: Performed By: #### P RUR, CRUR, UA #### [place] [address] UA Protein Negative Normal Negative [facility] Comment on above: Performed By: #### P RUR, CRUR, UA #### [place] [address] UA Spec Grav >=1.030 Abnormal 1.015-1.025 [facility] Comment on above: Performed By: #### P RUR, CRUR, UA #### [place] [address] UA Specimen Type Clean Catch Normal [facility] Comment on above: Performed By: #### P RUR, CRUR, UA #### [place] [address] UA Urobilinogen 0.2 E.U./dL Normal 0.2-1.0 [facility] Comment on above: Performed By: #### P RUR, CRUR, UA #### [place] [address] Urobilinogen (U) [Mass/Vol] Negative Normal Negative [facility] Comment on above: Performed By: #### P RUR, CRUR, UA #### [place] [address] .Auto Diffon 08-19-2024 Basophil, Absolute 0.0 10 3/mcL Normal 0.0-0.2 [facility] Comment on above: Performed By: #### P RUR, CRUR, UA #### [place] [address] Basophils/100 WBC (Bld) 0.7 % Normal 0.0-2.5 [facility] Comment on above: Performed By: #### P LUL ISAACS UA #### [address] [address] Eosinophil, Absolute 0.1 10 3/mcL Normal 0.0-0.7 [facility] Comment on above: Performed By: #### P LUL ISAACS, UA #### [address] [address] Eosinophils/100 WBC (Bld) 2.3 % Normal 0.0-7.0 [facility] Comment on above: Performed By: #### P LUL ISAACS UA #### [address] [address] Lymphocyte, Absolute 1.9 10 3/mcL Normal 0.9-4.3 [facility] Comment on above: Performed By: #### P LUL ISAACS UA #### [address] [address] Lymphocytes/100 WBC (Bld) 34.6 % Normal 20.0-40.0 [facility] Comment on above: Performed By: #### P LUL ISAACS, UA #### [address] [address] Monocyte, Absolute 0.4 10 3/mcL Normal 0.1-1.4 [facility] Comment on above: Performed By: #### P LUL ISAACS, UA #### [address] [address] Monocytes/100 WBC (Bld) 6.8 % Normal 2.0-13.0 [facility] Comment on above: Performed By: #### P LUL ISAACS, UA #### [address] [address] Neutrophils/100 WBC (Bld) 55.6 % Normal 50.0-75.0 [facility] Comment on above: Performed By: #### P RUR, CRUR, UA #### [address] [address] .GFRon 08-19-2024 GFR 59 ml/min/1.73sqm Normal [facility] Comment on above: Result Comment: GFR Population mean for , Non- Americans Ages 20-29 = 116 mL/min/1.73 sq.m. Ages 30-39 = 107 mL/min/1.73 sq.m. Ages 40-49 = 99 mL/min/1.73 sq.m. Ages 50-59 = 93 mL/min/1.73 sq.m. Ages 60-69 = 85 mL/min/1.73 sq.m. Ages 70+ = 75 mL/min/1.73 sq.m. Chronic Kidney Disease: Less than 60 mL/min/1.73 square meters End Stage Renal Disease: Less than 15 mL/min/1.73 square meters Performed By: #### P RUR CRSELENE, UA #### [address] [address] GFR Non- 49 ml/min/1.73sqm Normal [facility] Comment on above: Result Comment: GFR Population mean for , Non- Americans Ages 20-29 = 116 mL/min/1.73 sq.m. Ages 30-39 = 107 mL/min/1.73 sq.m. Ages 40-49 = 99 mL/min/1.73 sq.m. Ages 50-59 = 93 mL/min/1.73 sq.m. Ages 60-69 = 85 mL/min/1.73 sq.m. Ages 70+ = 75 mL/min/1.73 sq.m. Chronic Kidney Disease: Less than 60 mL/min/1.73 square meters End Stage Renal Disease: Less than 15 mL/min/1.73 square meters Performed By: #### P RUR CRSELENE, UA #### [address] [address] .NEUABSon 08-19-2024 Neutrophil, Absolute 3.0 10 3/mcL Normal 2.3-8.1 [facility] Comment on above: Performed By: #### P RUR CRUR, UA #### [address] [address] CBCon 08-19-2024 Erythrocyte distribution width (RBC) [Ratio] 13.7 % Normal 11.5-15.5 [facility] Comment on above: Performed By: #### P LUL ISAACS, UA #### [place] [id number] Hematocrit (Bld) [Volume fraction] 38.1 % Normal 34.0-46.0 [facility] Comment on above: Performed By: #### P LUL ISAACS, UA #### [place] [address] Hgb 12.7 G/dL Normal 12.0-16.0 [facility] Comment on above: Performed By: #### LUL BAUTISTA, UA #### [place] [id number] MCH (RBC) [Entitic mass] 29.5 pg Normal 27.0-33.0 [facility] Comment on above: Performed By: #### LUL BAUTISTA, UA #### [place] [address] MCHC 33.4 G/dL Normal 32.0-36.0 [facility] Comment on above: Performed By: #### LUL BAUTISTA, UA #### [place] [phone] MCV (RBC) [Entitic vol] 88.5 fL Normal 80.0-99.0 [facility] Comment on above: Performed By: #### P LUL ISAACS, UA #### [place] [id number] Platelet 307 10 3/mcL Normal 150-450 [facility] Comment on above: Performed By: #### P LUL ISAACS, UA #### [place] [address] Platelet mean volume (Bld) [Entitic vol] 7.2 fL Normal 6.6-10.5 [facility] Comment on above: Performed By: #### LUL BAUTISTA UA #### [place] [address] RBC 4.31 10 6/mcL Normal 4.10-5.30 [facility] Comment on above: Performed By: #### LUL BAUTISTA UA #### [place] [address] WBC 5.4 10 3/mcL Normal 4.5-10.8 [facility] Comment on above: Performed By: #### LUL BAUTISTA UA #### [place] [address] Trini 08-19-2024 Ferritin [Mass/Vol] 189.0 ng/mL Normal 8.0-252.0 [facility] Comment on above: Performed By: #### LUL BAUTISTA UA #### [place] [address] FESon 08-19-2024 Iron [Mass/Vol] 69 ug/dL Normal 50-170 [facility] Comment on above: Performed By: #### LUL BAUTISTA UA #### [place] [address] Iron Sat 24 % Normal [facility] Comment on above: Performed By: #### LUL BAUTISTA UA #### [place] [address] TIBC 284 mcg/dL Normal 250-450 [facility] Comment on above: Performed By: #### LUL BAUTISTA UA #### [place] [address] LABORATORYOrdered By: SYSTEM SYSTEM on 08-19-2024 Albumin BCP dye [Mass/Vol] 3.4 G/dL Low 3.5 - 5.0 G/dL AO ADM SS Basophils (Bld) [#/Vol] 0.0 103/mcL Normal 0.0 - 0.2 10^3/mcL AO Workflow SS Basophils/100 WBC (Bld) 0.7 % Normal 0.0 - 2.5 % AO Workflow SS Calcium [Mass/Vol] 9.0 mg/dL Normal 8.4 - 10. 2 mg/dL AO ADM SS Chloride [Moles/Vol] 104 mmol/L Normal 98 - 10 7 mmol/L AO ADM SS CO2 [Moles/Vol] 32 mmol/L High 22 - 29 mmol/L AO ADM SS Creatinine [Mass/Vol] 1.22 mg/dL High 0.55 - 1.02 mg/dL AO ADM SS Comment on above: Interpretive Data: T esting performed on [employer] Dimension EXL analyzer using a modified kinetic Ave technique. Electrolyte Balance 7.0 mEq/L Normal 4.0 - 15 .0 mEq/L AO ADM SS Eosinophil, Absolute 0.1 103/mcL Normal 0.0 - 0 .7 10^3/mcL AO Workflow SS Eosinophils/100 WBC (Bld) 2.3 % Normal 0.0 - 7.0 % AO Workflow SS Erythrocyte distribution width (RBC) [Ratio] 13.7 % Normal 11.5 - 15.5 % AO Workflow SS Ferritin [Mass/Vol] 189.0 ng/mL Normal 8.0 - 25 2.0 ng/mL AO ADM SS GFR/1.73 sq M.predicted among blacks MDRD (S/P/Bld) [Vol rate/Area] 59 ml/min/1.73sqm Invalid Interpretation Code AO Chemistry S Comment on above: Interpretive Data: GFR Population mean for , Non- Americans Ages 20-29 = 116 mL/min/1.73 sq.m. Ages 30-39 = 107 mL/min/1.73 sq.m. Ages 40-49 = 99 mL/min/1.73 sq.m. Ages 50-59 = 93 mL/min/1.73 sq.m. Ages 60-69 = 85 mL/min/1.73 sq.m. Ages 70+ = 75 mL/min/1.73 sq.m. Chronic Kidney Disease: Less than 60 mL/min/1.73 square meters End Stage Renal Disease: Less than 15 mL/min/1.73 square meters GFR/1.73 sq M.predicted among non-blacks MDRD (S/P/Bld) [Vol rate/Area] 49 ml/min/1.73sqm Invalid Interpretation Code AO Chemistry S Comment on above: Interpretive Data: GFR Population mean for , Non- Americans Ages 20-29 = 116 mL/min/1.73 sq.m. Ages 30-39 = 107 mL/min/1.73 sq.m. Ages 40-49 = 99 mL/min/1.73 sq.m. Ages 50-59 = 93 mL/min/1.73 sq.m. Ages 60-69 = 85 mL/min/1.73 sq.m. Ages 70+ = 75 mL/min/1.73 sq.m. Chronic Kidney Disease: Less than 60 mL/min/1.73 square meters End Stage Renal Disease: Less than 15 mL/min/1.73 square meters Glucose [Mass/Vol] 87 mg/dL Normal 70 - 105 mg/dL AO ADM SS Hematocrit (Bld) [Volume fraction] 38.1 % Normal 34.0 - 46.0 % AO Workflow SS Hemoglobin (Bld) [Mass/Vol] 12.7 G/dL Normal 12.0 - 16.0 G/dL AO Workflow SS Iron [Mass/Vol] 69 ug/dL Normal 50 - 170 mcg/dL AO ADM SS Iron binding capacity [Mass/Vol] 284 mcg/dL Normal 250 - 450 mcg/dL AO ADM SS Iron Sat 24 % Invalid Interpretation Code AO ADM SS Lymphocytes (Bld) [#/Vol] 1.9 103/mcL Normal 0.9 - 4.3 10^3/mcL AO Workflow SS Lymphocytes/100 WBC (Bld) 34.6 % Normal 20.0 - 40.0 % AO Workflow SS MCH (RBC) [Entitic mass] 29.5 pg Normal 27.0 - 33.0 pg AO Workflow SS MCHC 33.4 G/dL Normal 32.0 - 36.0 G/dL AO Workflow SS MCV (RBC) [Entitic vol] 88.5 fL Normal 80.0 - 99.0 fL AO Workflow SS Monocytes (Bld) [#/Vol] 0.4 103/mcL Normal 0.1 - 1.4 10^3/mcL AO Workflow SS Monocytes/100 WBC (Bld) 6.8 % Normal 2.0 - 13.0 % AO Workflow SS Neutrophils (Bld) [#/Vol] 3.0 103/mcL Normal 2.3 - 8.1 10^3/mcL AO Workflow SS Neutrophils/100 WBC (Bld) 55.6 % Normal 50.0 - 75.0 % AO Workflow SS Parathyrin.intact [Mass/Vol] 53.9 pg/mL Normal 18.5 - 88.0 pg/mL AH ADM SS Phosphate [Mass/Vol] 4.3 mg/dL Normal 2.7 - 4 .5 mg/dL AO ADM SS Platelet mean volume (Bld) [Entitic vol] 7.2 fL Normal 6.6 - 10.5 fL AO Workflow SS Platelets (Bld) [#/Vol] 307 103/mcL Normal 150 - 450 10^3/mcL AO Workflow SS Potassium [Moles/Vol] 4.4 mmol/L Normal 3.5 - 5.1 mmol/L AO ADM SS RBC (Bld) [#/Vol] 4.31 106/mcL Normal 4.10 - 5.3 0 10^6/mcL AO Workflow SS Sodium [Moles/Vol] 143 mmol/L Normal 136 - 145 mmol/L AO ADM SS Urea nitrogen [Mass/Vol] 16 mg/dL Normal 7 - 18 mg/dL AO ADM SS Urea nitrogen/Creatinine [Mass ratio] 13 ratio Normal 7 - 27 ratio AO ADM SS Uric Acid Lvl 7.4 mg/dL High 2.6 - 6.2 mg/dL AO ADM SS WBC (Bld) [#/Vol] 5.4 103/mcL Normal 4.5 - 10.8 10^3/mcL AO Workflow SS PTHon 08-19-2024 PTH, Intact 53.9 pg/mL Normal 18.5-88.0 [facility] Comment on above: Performed By: #### C MP, LIP, ANEU, GFR, CBC, ADIFF #### [place] [id number] [place], [place] [address] RFPon 08-19-2024 Albumin Level 3.4 G/dL Low 3.5-5.0 [facility] Comment on above: Performed By: #### P LUL ISAACS UA #### [place] [id number] [place], [place] [address] BUN/Creatinine Ratio 13 ratio Normal 7-27 [facility] Comment on above: Performed By: #### P LUL ISAACS UA #### [address] [address] Calcium [Mass/Vol] 9.0 mg/dL Normal 8.4-10.2 [facility] Comment on above: Performed By: #### P LUL ISAACS, UA #### [address] [address] Chloride [Moles/Vol] 104 mmol/L Normal 98-107 [facility] Comment on above: Performed By: #### P LUL ISAACS, UA #### [address] [address] CO2 [Moles/Vol] 32 mmol/L High 22-29 [facility] Comment on above: Performed By: #### LUL BAUTISTA, UA #### [address] [address] Creatinine [Mass/Vol] 1.22 mg/dL High 0.55-1.02 [facility] Comment on above: Result Comment: Test ing performed on [employer] Dimension EXL analyzer using a modified kinetic Ave technique. Performed By: #### P LUL ISAACS, UA #### [address] [address] Electrolyte Balance 7.0 mEq/L Normal 4.0-15.0 [facility] Comment on above: Performed By: #### LUL BAUTISTA, UA #### [address] [address] Glucose [Mass/Vol] 87 mg/dL Normal 70-105 [facility] Comment on above: Performed By: #### P LUL ISAACS, UA #### [address] [address] Phosphate [Mass/Vol] 4.3 mg/dL Normal 2.7-4.5 [facility] Comment on above: Performed By: #### P LUL ISAACS, UA #### [address] [address] Potassium [Moles/Vol] 4.4 mmol/L Normal 3.5-5.1 [facility] Comment on above: Performed By: #### P RUR, CRUR, UA #### [place] [address] [place], [place] [address] Sodium [Moles/Vol] 143 mmol/L Normal 136-145 [facility] Comment on above: Performed By: #### P RUR, CRUR, UA #### [place] [address] [place], [place] [address] Urea nitrogen [Mass/Vol] 16 mg/dL Normal 7-18 [facility] Comment on above: Performed By: #### P RUR, CRUR, UA #### [place] [id number] [place] [id number] URICon 08-19-2024 Uric Acid Lvl 7.4 mg/dL High 2.6-6.2 [facility] Comment on above: Performed By: #### P RUR, CRUR, UA #### [address] [address] [address] ABDOMEN/PELVIS W/O CONTRA STon 07-15-2024 CT ABDOMEN/PELVIS W/O CONTRAST ORIGINAL EXAMINATION: CT OF THE ABDOMEN AND PELVIS WITHOUT CONTRAST 07/09/2024 1:44 pm TECHNIQUE: CT of the abdomen and pelvis was performed without the administration of intravenous contrast. Multiplanar reformatted images are provided for review. Automated exposure control, iterative reconstruction, and/or weight based adjustment of the mA/kV was utilized to reduce the radiation dose to as low as reasonably achievable. COMPARISON: None. HISTORY: ORDERING SYSTEM PROVIDED HISTORY: Reason for Exam: left upper quadrant pain, back pain, nephrolithiasis FINDINGS: Lower Chest: Unremarkable. Organs: No focal hepatic or splenic lesion. The adrenal glands are unremarkable. The pancreas is unremarkable. Cholelithiasis without biliary dilatation or pericholecystic edema. A few hyperdensities within the right upper quadrant may represent calcified lymph nodes. No hydronephrosis or nephrolithiasis. GI/Bowel: No dilated loops of small bowel. Normal appendix. Moderate colonic diverticulosis. There is a focal area of mild inflammation seen within the left lower quadrant surrounding a descending colon diverticulum. There is no free air or adjacent drainable fluid collection. Pelvis: 3.4 cm right adnexal lesion poorly evaluated on this noncontrast exam although statistically likely represents a cyst or other benign lesion and requires no dedicated follow-up. Scattered phleboliths. Trace free pelvic fluid. Peritoneum/Retroperit oneum: Nonaneurysmal abdominal aorta. No enlarged lymph nodes. Bones/Soft Tissues: No acute osseous abnormality. Mild multilevel degenerative changes of the spine. 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 IMPRESSION: Mild diverticulitis of the distal descending colon. No free air or drainable fluid collection. Cholelithiasis without CT findings of cholecystitis. Moderate colonic diverticulosis. I have personally reviewed the images of this examination and agree with the resident's findings and interpretations. Interpreted by: Alden Felix MD Preliminary Report By: Luis Moya Electronically signed By Alden Felix MD Dictated Date: 07/15/2024 8:21:07 AM Prelim Date: 07/15/2024 10:13:42 AM Sign Date: 07/15/2024 10:13:42 AM Ordering Provider: ROYCE Moreland [facility] .Auto Diffon 07-03-2024 Basophil, Absolute 0.0 10 3/mcL Normal 0.0-0.2 [facility] Comment on above: Performed By: #### C MP, LIP, ANEU, GFR, CBC, ADIFF #### [place] [address] [place], [place] [address] Basophils/100 WBC (Bld) 0.3 % Normal 0.0-2.5 [facility] Comment on above: Performed By: #### C MP, LIP, ANEU, GFR, CBC, ADIFF #### [place] [address] [place], [place] [address] Eosinophil, Absolute 0.1 10 3/mcL Normal 0.0-0.7 [facility] Comment on above: Performed By: #### C MP, LIP, ANEU, GFR, CBC, ADIFF #### [place] [address] [place], [place] [address] Eosinophils/100 WBC (Bld) 0.6 % Normal 0.0-7.0 [facility] Comment on above: Performed By: #### C MP, LIP, ANEU, GFR, CBC, ADIFF #### [address] [address] Lymphocyte, Absolute 1.4 10 3/mcL Normal 0.9-4.3 [facility] Comment on above: Performed By: #### C MP, LIP, ANEU, GFR, CBC, ADIFF #### [address] [address] Lymphocytes/100 WBC (Bld) 12.6 % Low 20.0-40.0 [facility] Comment on above: Performed By: #### C MP, LIP, ANEU, GFR, CBC, ADIFF #### [address] [address] Monocyte, Absolute 0.7 10 3/mcL Normal 0.1-1.4 [facility] Comment on above: Performed By: #### C MP, LIP, ANEU, GFR, CBC, ADIFF #### [address] [address] Monocytes/100 WBC (Bld) 6.8 % Normal 2.0-13.0 [facility] Comment on above: Performed By: #### C MP, LIP, ANEU, GFR, CBC, ADIFF #### [address] [address] Neutrophils/100 WBC (Bld) 79.7 % High 50.0-75.0 [facility] Comment on above: Performed By: #### C MP, LIP, ANEU, GFR, CBC, ADIFF #### [address] [address] .GFRon 07-03-2024 GFR Non- 54 ml/min/1.73sqm Normal [facility] Comment on above: Result Comment: GFR Population mean for , Non- Americans Ages 20-29 = 116 mL/min/1.73 sq.m. Ages 30-39 = 107 mL/min/1.73 sq.m. Ages 40-49 = 99 mL/min/1.73 sq.m. Ages 50-59 = 93 mL/min/1.73 sq.m. Ages 60-69 = 85 mL/min/1.73 sq.m. Ages 70+ = 75 mL/min/1.73 sq.m. Chronic Kidney Disease: Less than 60 mL/min/1.73 square meters End Stage Renal Disease: Less than 15 mL/min/1.73 square meters Performed By: #### P REGU, UA #### [address] [address] GFR 66 ml/min/1.73sqm Normal [facility] Comment on above: Result Comment: GFR Population mean for , Non- Americans Ages 20-29 = 116 mL/min/1.73 sq.m. Ages 30-39 = 107 mL/min/1.73 sq.m. Ages 40-49 = 99 mL/min/1.73 sq.m. Ages 50-59 = 93 mL/min/1.73 sq.m. Ages 60-69 = 85 mL/min/1.73 sq.m. Ages 70+ = 75 mL/min/1.73 sq.m. Chronic Kidney Disease: Less than 60 mL/min/1.73 square meters End Stage Renal Disease: Less than 15 mL/min/1.73 square meters Performed By: #### P TONI, UA #### [address] [address] .NEUABSon 07-03-2024 Neutrophil, Absolute 8.7 10 3/mcL High 2.3-8.1 [facility] Comment on above: Performed By: #### C MP, LIP, ANEU, GFR, CBC, ADIFF #### [address] [address] CBCon 07-03-2024 Erythrocyte distribution width (RBC) [Ratio] 13.8 % Normal 11.5-15.5 [facility] Comment on above: Performed By: #### C MP, LIP, ANEU, GFR, CBC, ADIFF #### [address] [address] Hematocrit (Bld) [Volume fraction] 37.4 % Normal 34.0-46.0 [facility] Comment on above: Performed By: #### C MP, LIP, ANEU, GFR, CBC, ADIFF #### [place] [address] Hgb 12.3 G/dL Normal 12.0-16.0 [facility] Comment on above: Performed By: #### C MP, LIP, ANEU, GFR, CBC, ADIFF #### [place] [phone] MCH (RBC) [Entitic mass] 29.5 pg Normal 27.0-33.0 [facility] Comment on above: Performed By: #### C MP, LIP, ANEU, GFR, CBC, ADIFF #### [place] [address] MCHC 32.7 G/dL Normal 32.0-36.0 [facility] Comment on above: Performed By: #### C MP, LIP, ANEU, GFR, CBC, ADIFF #### [place] [address] MCV (RBC) [Entitic vol] 90.3 fL Normal 80.0-99.0 [facility] Comment on above: Performed By: #### C MP, LIP, ANEU, GFR, CBC, ADIFF #### [place] [id number] Platelet 255 10 3/mcL Normal 150-450 [facility] Comment on above: Performed By: #### C MP, LIP, ANEU, GFR, CBC, ADIFF #### [place] [address] Platelet mean volume (Bld) [Entitic vol] 7.9 fL Normal 6.6-10.5 [facility] Comment on above: Performed By: #### C MP, LIP, ANEU, GFR, CBC, ADIFF #### [place] [id number] RBC 4.15 10 6/mcL Normal 4.10-5.30 [facility] Comment on above: Performed By: #### C MP, LIP, ANEU, GFR, CBC, ADIFF #### [address] [address] WBC 10.9 10 3/mcL High 4.5-10.8 [facility] Comment on above: Performed By: #### C MP, LIP, ANEU, GFR, CBC, ADIFF #### [address] [address] CMPon 07-03-2024 Albumin Level 3.7 G/dL Normal 3.5-5.0 [facility] Comment on above: Performed By: #### C MP, LIP, ANEU, GFR, CBC, ADIFF #### [address] [address] Albumin/Globulin [Mass ratio] 1.1 {ratio} Normal 1.1-2.5 [facility] Comment on above: Performed By: #### C MP, LIP, ANEU, GFR, CBC, ADIFF #### [address] [address] ALP [Catalytic activity/Vol] 68 U/L Normal 40-135 [facility] Comment on above: Performed By: #### C MP, LIP, ANEU, GFR, CBC, ADIFF #### [address] [address] ALT [Catalytic activity/Vol] 20 U/L Normal 14-59 [facility] Comment on above: Performed By: #### C MP, LIP, ANEU, GFR, CBC, ADIFF #### [address] [address] AST [Catalytic activity/Vol] 12 U/L Normal 10-40 [facility] Comment on above: Performed By: #### C MP, LIP, ANEU, GFR, CBC, ADIFF #### [address] [address] Bili Total 0.3 mg/dL Normal 0.2-1.0 [facility] Comment on above: Result Comment: Use of this assay is not recommended for patients undergoing treatment with eltrombopag due to the potential for falsely elevated results. Performed By: #### C MP, LIP, ANEU, GFR, CBC, ADIFF #### [address] [address] BUN/Creatinine Ratio 12 ratio Normal 7-27 [facility] Comment on above: Performed By: #### C MP, LIP, ANEU, GFR, CBC, ADIFF #### [address] [address] Calcium [Mass/Vol] 9.0 mg/dL Normal 8.4-10.2 [facility] Comment on above: Performed By: #### C MP, LIP, ANEU, GFR, CBC, ADIFF #### [address] [address] Chloride [Moles/Vol] 100 mmol/L Normal 98-107 [facility] Comment on above: Performed By: #### C MP, LIP, ANEU, GFR, CBC, ADIFF #### [place] [address] CO2 [Moles/Vol] 28 mmol/L Normal 22-29 [facility] Comment on above: Performed By: #### C MP, LIP, ANEU, GFR, CBC, ADIFF #### [address] [address] Creatinine [Mass/Vol] 1.11 mg/dL High 0.55-1.02 [facility] Comment on above: Result Comment: Test ing performed on Siemens Dimension EXL analyzer using a modified kinetic Ave technique. Performed By: #### C MP, LIP, ANEU, GFR, CBC, ADIFF #### [address] [address] Electrolyte Balance 11.0 mEq/L Normal 4.0-15.0 [facility] Comment on above: Performed By: #### C MP, LIP, ANEU, GFR, CBC, ADIFF #### [address] [address] Globulin 3.4 G/dL Normal [facility] Comment on above: Performed By: #### C MP, LIP, ANEU, GFR, CBC, ADIFF #### [address] [address] Glucose [Mass/Vol] 89 mg/dL Normal 70-105 [facility] Comment on above: Performed By: #### C MP, LIP, ANEU, GFR, CBC, ADIFF #### [id number] [place], [place] [address] Potassium [Moles/Vol] 4.5 mmol/L Normal 3.5-5.1 [facility] Comment on above: Performed By: #### C MP, LIP, ANEU, GFR, CBC, ADIFF #### [id number] [place], [place] [address] Sodium [Moles/Vol] 139 mmol/L Normal 136-145 [facility] Comment on above: Performed By: #### C MP, LIP, ANEU, GFR, CBC, ADIFF #### [address] [address] Total Protein 7.1 G/dL Normal 6.4-8.2 [facility] Comment on above: Performed By: #### C MP, LIP, ANEU, GFR, CBC, ADIFF #### [address] [address] Urea nitrogen [Mass/Vol] 13 mg/dL Normal 7-18 [facility] Comment on above: Performed By: #### C MP, LIP, ANEU, GFR, CBC, ADIFF #### [address] [address] LABORATORYOrdered By: SYSTEM SYSTEM on 07-03-2024 Albumin BCP dye [Mass/Vol] 3.7 G/dL Normal 3.5 - 5.0 G/dL AO ADM SS Albumin/Globulin [Mass ratio] 1.1 {ratio} Normal 1.1 - 2.5 ratio AO ADM SS ALP [Catalytic activity/Vol] 68 U/L Normal 40 - 135 U/L AO ADM SS ALT With P-5'-P [Catalytic activity/Vol] 20 U/L Normal 14 - 59 U/L AO ADM SS AST With P-5'-P [Catalytic activity/Vol] 12 U/L Normal 10 - 40 U/L AO ADM SS Basophils (Bld) [#/Vol] 0.0 103/mcL Normal 0.0 - 0.2 10^3/mcL AO Workflow SS Basophils/100 WBC (Bld) 0.3 % Normal 0.0 - 2.5 % AO Workflow SS Bilirubin [Mass/Vol] 0.3 mg/dL Normal 0.2 - 1 .0 mg/dL AO ADM SS Comment on above: Interpretive Data: U se of this assay is not recommended for patients undergoing treatment with eltrombopag due to the potential for falsely elevated results. Calcium [Mass/Vol] 9.0 mg/dL Normal 8.4 - 10. 2 mg/dL AO ADM SS Chloride [Moles/Vol] 100 mmol/L Normal 98 - 10 7 mmol/L AO ADM SS CO2 [Moles/Vol] 28 mmol/L Normal 22 - 29 mmol/L AO ADM SS Creatinine [Mass/Vol] 1.11 mg/dL High 0.55 - 1.02 mg/dL AO ADM SS Comment on above: Interpretive Data: T esting performed on Siemens Dimension EXL analyzer using a modified kinetic Ave technique. Electrolyte Balance 11.0 mEq/L Normal 4.0 - 15 .0 mEq/L AO ADM SS Eosinophil, Absolute 0.1 103/mcL Normal 0.0 - 0 .7 10^3/mcL AO Workflow SS Eosinophils/100 WBC (Bld) 0.6 % Normal 0.0 - 7.0 % AO Workflow SS Erythrocyte distribution width (RBC) [Ratio] 13.8 % Normal 11.5 - 15.5 % AO Workflow SS GFR/1.73 sq M.predicted among blacks MDRD (S/P/Bld) [Vol rate/Area] 66 ml/min/1.73sqm Invalid Interpretation Code AO Chemistry S Comment on above: Interpretive Data: GFR Population mean for , Non- Americans Ages 20-29 = 116 mL/min/1.73 sq.m. Ages 30-39 = 107 mL/min/1.73 sq.m. Ages 40-49 = 99 mL/min/1.73 sq.m. Ages 50-59 = 93 mL/min/1.73 sq.m. Ages 60-69 = 85 mL/min/1.73 sq.m. Ages 70+ = 75 mL/min/1.73 sq.m. Chronic Kidney Disease: Less than 60 mL/min/1.73 square meters End Stage Renal Disease: Less than 15 mL/min/1.73 square meters GFR/1.73 sq M.predicted among non-blacks MDRD (S/P/Bld) [Vol rate/Area] 54 ml/min/1.73sqm Invalid Interpretation Code AO Chemistry S Comment on above: Interpretive Data: GFR Population mean for , Non- Americans Ages 20-29 = 116 mL/min/1.73 sq.m. Ages 30-39 = 107 mL/min/1.73 sq.m. Ages 40-49 = 99 mL/min/1.73 sq.m. Ages 50-59 = 93 mL/min/1.73 sq.m. Ages 60-69 = 85 mL/min/1.73 sq.m. Ages 70+ = 75 mL/min/1.73 sq.m. Chronic Kidney Disease: Less than 60 mL/min/1.73 square meters End Stage Renal Disease: Less than 15 mL/min/1.73 square meters Globulin 3.4 G/dL Invalid Interpretation Code AO ADM SS Glucose [Mass/Vol] 89 mg/dL Normal 70 - 105 mg/dL AO ADM SS Hematocrit (Bld) [Volume fraction] 37.4 % Normal 34.0 - 46.0 % AO Workflow SS Hemoglobin (Bld) [Mass/Vol] 12.3 G/dL Normal 12.0 - 16.0 G/dL AO Workflow SS Lipase [Catalytic activity/Vol] 15 U/L Low 16 - 77 U/L AO ADM SS Lymphocytes (Bld) [#/Vol] 1.4 103/mcL Normal 0.9 - 4.3 10^3/mcL AO Workflow SS Lymphocytes/100 WBC (Bld) 12.6 % Low 20.0 - 40.0 % AO Workflow SS MCH (RBC) [Entitic mass] 29.5 pg Normal 27.0 - 33.0 pg AO Workflow SS MCHC 32.7 G/dL Normal 32.0 - 36.0 G/dL AO Workflow SS MCV (RBC) [Entitic vol] 90.3 fL Normal 80.0 - 99.0 fL AO Workflow SS Monocytes (Bld) [#/Vol] 0.7 103/mcL Normal 0.1 - 1.4 10^3/mcL AO Workflow SS Monocytes/100 WBC (Bld) 6.8 % Normal 2.0 - 13.0 % AO Workflow SS Neutrophils (Bld) [#/Vol] 8.7 103/mcL High 2.3 - 8.1 10^3/mcL AO Workflow SS Neutrophils/100 WBC (Bld) 79.7 % High 50.0 - 75.0 % AO Workflow SS Platelet mean volume (Bld) [Entitic vol] 7.9 fL Normal 6.6 - 10.5 fL AO Workflow SS Platelets (Bld) [#/Vol] 255 103/mcL Normal 150 - 450 10^3/mcL AO Workflow SS Potassium [Moles/Vol] 4.5 mmol/L Normal 3.5 - 5.1 mmol/L AO ADM SS Protein [Mass/Vol] 7.1 G/dL Normal 6.4 - 8.2 G/dL AO ADM SS RBC (Bld) [#/Vol] 4.15 106/mcL Normal 4.10 - 5.3 0 10^6/mcL AO Workflow SS Sodium [Moles/Vol] 139 mmol/L Normal 136 - 145 mmol/L AO ADM SS Urea nitrogen [Mass/Vol] 13 mg/dL Normal 7 - 18 mg/dL AO ADM SS Urea nitrogen/Creatinine [Mass ratio] 12 ratio Normal 7 - 27 ratio AO ADM SS WBC (Bld) [#/Vol] 10.9 103/mcL High 4.5 - 10.8 10^3/mcL AO Workflow SS LIPon 07-03-2024 Lipase Level 15 U/L Low 16-77 [facility] Comment on above: Performed By: #### C MP, LIP, ANEU, GFR, CBC, ADIFF #### [id number] [place], [place] [address] No Panel Informationon 07-03 Culture Urine <10,000 cfu/ml. No Significant growth. Sensitivity not indicated. [facility] .GFRon 07-01-2024 GFR 64 ml/min/1.73sqm Normal [facility] Comment on above: Result Comment: GFR Population mean for , Non- Americans Ages 20-29 = 116 mL/min/1.73 sq.m. Ages 30-39 = 107 mL/min/1.73 sq.m. Ages 40-49 = 99 mL/min/1.73 sq.m. Ages 50-59 = 93 mL/min/1.73 sq.m. Ages 60-69 = 85 mL/min/1.73 sq.m. Ages 70+ = 75 mL/min/1.73 sq.m. Chronic Kidney Disease: Less than 60 mL/min/1.73 square meters End Stage Renal Disease: Less than 15 mL/min/1.73 square meters Performed By: #### P RUR, CRUR, UA #### [address] [address] GFR Non- 53 ml/min/1.73sqm Normal [facility] Comment on above: Result Comment: GFR Population mean for , Non- Americans Ages 20-29 = 116 mL/min/1.73 sq.m. Ages 30-39 = 107 mL/min/1.73 sq.m. Ages 40-49 = 99 mL/min/1.73 sq.m. Ages 50-59 = 93 mL/min/1.73 sq.m. Ages 60-69 = 85 mL/min/1.73 sq.m. Ages 70+ = 75 mL/min/1.73 sq.m. Chronic Kidney Disease: Less than 60 mL/min/1.73 square meters End Stage Renal Disease: Less than 15 mL/min/1.73 square meters Performed By: #### P RUR, CRUR, UA #### [address] [address] CRURon 07-01-2024 U Creatinine 81.0 mg/dL Normal 28.0-117.0 [facility] Comment on above: Performed By: #### C MP, LIP, ANEU, GFR, CBC, ADIFF #### [address] [address] LABORATORYOrdered By: SYSTEM SYSTEM on 07-01-2024 Albumin BCP dye [Mass/Vol] 3.6 G/dL Normal 3.5 - 5.0 G/dL AO ADM SS Calcium [Mass/Vol] 9.0 mg/dL Normal 8.4 - 10. 2 mg/dL AO ADM SS Chloride [Moles/Vol] 103 mmol/L Normal 98 - 10 7 mmol/L AO ADM SS CO2 [Moles/Vol] 31 mmol/L High 22 - 29 mmol/L AO ADM SS Creatinine (U) [Mass/Vol] 81.0 mg/dL Normal 28.0 - 117.0 mg/dL AO ADM SS Creatinine [Mass/Vol] 1.13 mg/dL High 0.55 - 1.02 mg/dL AO ADM SS Comment on above: Interpretive Data: T esting performed on Siemens Dimension EXL analyzer using a modified kinetic Ave technique. Electrolyte Balance 5.0 mEq/L Normal 4.0 - 15 .0 mEq/L AO ADM SS GFR/1.73 sq M.predicted among blacks MDRD (S/P/Bld) [Vol rate/Area] 64 ml/min/1.73sqm Invalid Interpretation Code AO Chemistry S Comment on above: Interpretive Data: GFR Population mean for , Non- Americans Ages 20-29 = 116 mL/min/1.73 sq.m. Ages 30-39 = 107 mL/min/1.73 sq.m. Ages 40-49 = 99 mL/min/1.73 sq.m. Ages 50-59 = 93 mL/min/1.73 sq.m. Ages 60-69 = 85 mL/min/1.73 sq.m. Ages 70+ = 75 mL/min/1.73 sq.m. Chronic Kidney Disease: Less than 60 mL/min/1.73 square meters End Stage Renal Disease: Less than 15 mL/min/1.73 square meters GFR/1.73 sq M.predicted among non-blacks MDRD (S/P/Bld) [Vol rate/Area] 53 ml/min/1.73sqm Invalid Interpretation Code AO Chemistry S Comment on above: Interpretive Data: GFR Population mean for , Non- Americans Ages 20-29 = 116 mL/min/1.73 sq.m. Ages 30-39 = 107 mL/min/1.73 sq.m. Ages 40-49 = 99 mL/min/1.73 sq.m. Ages 50-59 = 93 mL/min/1.73 sq.m. Ages 60-69 = 85 mL/min/1.73 sq.m. Ages 70+ = 75 mL/min/1.73 sq.m. Chronic Kidney Disease: Less than 60 mL/min/1.73 square meters End Stage Renal Disease: Less than 15 mL/min/1.73 square meters Glucose [Mass/Vol] 101 mg/dL Normal 70 - 105 mg/dL AO ADM SS Phosphate [Mass/Vol] 4.1 mg/dL Normal 2.7 - 4 .5 mg/dL AO ADM SS Potassium [Moles/Vol] 4.6 mmol/L Normal 3.5 - 5.1 mmol/L AO ADM SS Protein (U) [Mass/Vol] mg/dL Normal 0 - 11 mg/dL AO ADM SS Sodium [Moles/Vol] 139 mmol/L Normal 136 - 145 mmol/L AO ADM SS Urea nitrogen [Mass/Vol] 14 mg/dL Normal 7 - 18 mg/dL AO ADM SS Urea nitrogen/Creatinine [Mass ratio] 12 ratio Normal 7 - 27 ratio AO ADM SS PRURon 07-01-2024 U Protein <6 Normal 0-11 [facility] Comment on above: Performed By: #### C MP, LIP, ANEU, GFR, CBC, ADIFF #### [address] [address] RFPon 07-01-2024 Albumin Level 3.6 G/dL Normal 3.5-5.0 [facility] Comment on above: Performed By: #### P RURLUL, UA #### [address] [address] BUN/Creatinine Ratio 12 ratio Normal 7-27 [facility] Comment on above: Performed By: #### P RUR CRUR, UA #### [address] [address] Calcium [Mass/Vol] 9.0 mg/dL Normal 8.4-10.2 [facility] Comment on above: Performed By: #### P RUR CRSELENE, UA #### [address] [address] Chloride [Moles/Vol] 103 mmol/L Normal 98-107 [facility] Comment on above: Performed By: #### P RUR CRSELENE, UA #### [address] [address] CO2 [Moles/Vol] 31 mmol/L High 22-29 [facility] Comment on above: Performed By: #### P LUL ISAACS, UA #### [address] [address] Creatinine [Mass/Vol] 1.13 mg/dL High 0.55-1.02 [facility] Comment on above: Result Comment: Test ing performed on Siemens Dimension EXL analyzer using a modified kinetic Ave technique. Performed By: #### P RURLUL, UA #### [address] [address] Electrolyte Balance 5.0 mEq/L Normal 4.0-15.0 [facility] Comment on above: Performed By: #### P RURLUL, UA #### [address] [address] Glucose [Mass/Vol] 101 mg/dL Normal 70-105 [facility] Comment on above: Performed By: #### P RURLUL, UA #### [address] [address] Phosphate [Mass/Vol] 4.1 mg/dL Normal 2.7-4.5 [facility] Comment on above: Performed By: #### P RUR CRSELENE, UA #### [address] [address] Potassium [Moles/Vol] 4.6 mmol/L Normal 3.5-5.1 [facility] Comment on above: Performed By: #### P RUR CRSELENE, UA #### [address] [address] Sodium [Moles/Vol] 139 mmol/L Normal 136-145 [facility] Comment on above: Performed By: #### P RUR CRUR, UA #### [address] [address] Urea nitrogen [Mass/Vol] 14 mg/dL Normal 7-18 [facility] Comment on above: Performed By: #### P LUL ISAACS UA #### [facility] [address] [place], [place] [address] US RETROPERITONEAL COMPLETEo n 06-21-2024 US RETROPERITONEAL COMPLETE ORIGINAL EXAMINATION: RENAL ULTRASOUND TECHNIQUE: Real-time grayscale images of the bilateral kidneys and urinary bladder were obtained with a linear array transducer in transverse and longitudinal dimensions. COMPARISON: 11/24/2022 HISTORY: ORDERING SYSTEM PROVIDED HISTORY: Reason for Exam: CKD 3A All images are recorded and archived. FINDINGS: Right kidney: Length: 8.7 x 4.5 x 4.8 cm Echogenicity: Normal Hydronephrosis: None Calculus: None Mass: None Left kidney: Length: 10.0 x 4.4 x 5.2 cm Echogenicity: Normal Hydronephrosis: None Calculus: Multiple echogenic subcentimeter foci are seen within the left kidney, which may represent small non-shadowing calculi. Are milk of calcium cysts. Mass: None Urinary bladder: Normal sonographic appearance of the bladder. There is a prevoid volume of 138.5 mL, with near complete emptying with voiding. The bladder wall measures 0.3 cm. IMPRESSION: Several subcentimeter hyperechogenic foci which may represent small nonshadowing calculi. No evidence of hydronephrosis. I have personally reviewed the images of this examination and agree with the resident's findings and interpretation. Interpreted by: Maximino Thornton DO Preliminary Report By: Meche Borden Electronically signed By Maximino Thornton DO Dictated Date: 06/21/2024 2:06:19 PM Prelim Date: 06/21/2024 3:26:11 PM Sign Date: 06/21/2024 3:26:11 PM Ordering Provider: LENORA Moreland [facility] SPEon 06-18-2024 SPE Interpretation Normal serum protein electrophoresis pattern. No abnormality detected. Normal [facility] Comment on above: Result Comment: Elec tronically Signed by: EDMUNDO MITCHELL 06/18/2024 14:47 EST Performed By: #### P LUL ISAACS UA #### [id number] [place], [place] [address] Albumin 3.6 G/dL Normal 3.3-5.0 [facility] Comment on above: Performed By: #### P LUL ISAACS, UA #### [address] [address] Alpha 1 0.3 G/dL Normal 0.1-0.4 [facility] Comment on above: Performed By: #### P LUL ISAACS, UA #### [address] [address] Alpha 2 0.8 G/dL Normal 0.6-1.2 [facility] Comment on above: Performed By: #### P LUL ISAACS, UA #### [address] [address] Beta 1.3 G/dL Normal 0.6-1.3 [facility] Comment on above: Performed By: #### LUL BAUTISTA, UA #### [address] [address] Gamma 1.5 G/dL Normal 0.7-1.6 [facility] Comment on above: Performed By: #### LUL BAUTISTA, UA #### [address] [address] ANAIFSon 06-14-2024 Antinuclear Ab Screen Negative Normal Negative [facility] Comment on above: Result Comment: Anti -nuclear antibody test is used as an aid in diagnosis of systemic autoimmune diseases. Where positive and clinically warranted, follow-up using disease-specific testing is recommended. Low positive titers are not uncommon with advanced age, certain chronic infections, and malignancies among others. Test methodology: Indirect fluorescence immunoassay (IFA) using HEp-2 cells. Performed By: [facility] [address] [place] [address] Manager Post: Juventino Vásquez III, M.D. CLIA#: [id number] Performed By: #### P LUL ISAACS, UA #### [address] [address] .Auto Diffon 06-13-2024 Basophil, Absolute 0.0 10 3/mcL Normal 0.0-0.2 [facility] Comment on above: Performed By: #### P REGU, UA #### [address] [address] Basophils/100 WBC (Bld) 0.5 % Normal 0.0-2.5 [facility] Comment on above: Performed By: #### P REGU, UA #### [address] [address] Eosinophil, Absolute 0.1 10 3/mcL Normal 0.0-0.7 [facility] Comment on above: Performed By: #### P REGU, UA #### [address] [address] Eosinophils/100 WBC (Bld) 1.5 % Normal 0.0-7.0 [facility] Comment on above: Performed By: #### P REGU, UA #### [address] [address] Lymphocyte, Absolute 1.3 10 3/mcL Normal 0.9-4.3 [facility] Comment on above: Performed By: #### P REGU, UA #### [address] [address] Lymphocytes/100 WBC (Bld) 25.5 % Normal 20.0-40.0 [facility] Comment on above: Performed By: #### P REGU, UA #### [address] [address] Monocyte, Absolute 0.3 10 3/mcL Normal 0.1-1.4 [facility] Comment on above: Performed By: #### P REGU, UA #### [address] [address] Monocytes/100 WBC (Bld) 5.9 % Normal 2.0-13.0 [facility] Comment on above: Performed By: #### P REGU, UA #### [address] [address] Neutrophils/100 WBC (Bld) 66.6 % Normal 50.0-75.0 [facility] Comment on above: Performed By: #### P REGU, UA #### [address] [address] .GFRon 06-13-2024 GFR 59 ml/min/1.73sqm Normal [facility] Comment on above: Result Comment: GFR Population mean for , Non- Americans Ages 20-29 = 116 mL/min/1.73 sq.m. Ages 30-39 = 107 mL/min/1.73 sq.m. Ages 40-49 = 99 mL/min/1.73 sq.m. Ages 50-59 = 93 mL/min/1.73 sq.m. Ages 60-69 = 85 mL/min/1.73 sq.m. Ages 70+ = 75 mL/min/1.73 sq.m. Chronic Kidney Disease: Less than 60 mL/min/1.73 square meters End Stage Renal Disease: Less than 15 mL/min/1.73 square meters Performed By: #### P RUR, CRUR, UA #### [address] [address] GFR Non- 49 ml/min/1.73sqm Normal [facility] Comment on above: Result Comment: GFR Population mean for , Non- Americans Ages 20-29 = 116 mL/min/1.73 sq.m. Ages 30-39 = 107 mL/min/1.73 sq.m. Ages 40-49 = 99 mL/min/1.73 sq.m. Ages 50-59 = 93 mL/min/1.73 sq.m. Ages 60-69 = 85 mL/min/1.73 sq.m. Ages 70+ = 75 mL/min/1.73 sq.m. Chronic Kidney Disease: Less than 60 mL/min/1.73 square meters End Stage Renal Disease: Less than 15 mL/min/1.73 square meters Performed By: #### P RUR, CRUR, UA #### [address] [address] .NEUABSon 06-13-2024 Neutrophil, Absolute 3.5 10 3/mcL Normal 2.3-8.1 [facility] Comment on above: Performed By: #### P KHANG MUÑOZ #### [address] [address] A1Con 06-13-2024 Glucose [Mass/Vol] 111 mg/dL Normal [facility] Comment on above: Result Comment: Mariam mated Average Glucose calculated by equation ((28.7xA1C)-46.7) Estimated average glucose (eAG) is a calculated value from Hemoglobin A1C and is payroll representative of the average blood glucose level in the last 2-3 month period. Normal range: less than 114 mg/dL Performed By: #### LUL BAUTISTA UA #### [address] [address] HbA1c (Bld) [Mass fraction] 5.5 % Normal 4.3-6.4 [facility] Comment on above: Performed By: #### LUL BAUTISTA UA #### [address] [address] [id number] 06-13-2024 Complement C3A 156.0 mg/dL Normal 90.0-170.0 [facility] Comment on above: Result Comment: No te - New Reference Range in effect 20 Performed By: #### LUL BAUTISTA UA #### [address] [address] Complement C4A 31.0 mg/dL Normal 16.0-38.0 [facility] Comment on above: Performed By: #### LUL BAUTISTA UA #### [address] [address] CBCon 06-13-2024 Erythrocyte distribution width (RBC) [Ratio] 14.0 % Normal 11.5-15.5 [facility] Comment on above: Performed By: #### KHANG HUYNH #### [address] [address] Hematocrit (Bld) [Volume fraction] 39.0 % Normal 34.0-46.0 [facility] Comment on above: Performed By: #### P REGU, UA #### [address] [address] Hgb 12.9 G/dL Normal 12.0-16.0 [facility] Comment on above: Performed By: #### P REGU, UA #### [address] [address] MCH (RBC) [Entitic mass] 29.9 pg Normal 27.0-33.0 [facility] Comment on above: Performed By: #### P REGU, UA #### [address] [place] [address] MCHC 33.2 G/dL Normal 32.0-36.0 [facility] Comment on above: Performed By: #### P REGU, UA #### [place] [id number] MCV (RBC) [Entitic vol] 90.1 fL Normal 80.0-99.0 [facility] Comment on above: Performed By: #### P REGU, UA #### [address] [address] Platelet 277 10 3/mcL Normal 150-450 [facility] Comment on above: Performed By: #### P REGU, UA #### [address] [address] Platelet mean volume (Bld) [Entitic vol] 7.5 fL Normal 6.6-10.5 [facility] Comment on above: Performed By: #### P REGU, UA #### [place] [id number] RBC 4.33 10 6/mcL Normal 4.10-5.30 [facility] Comment on above: Performed By: #### P REGU, UA #### [address] [address] WBC 5.3 10 3/mcL Normal 4.5-10.8 [facility] Comment on above: Performed By: #### P REGU, UA #### [address] [address] CRURon 06-13-2024 U Creatinine 38.7 mg/dL Normal 28.0-117.0 [facility] Comment on above: Performed By: #### P RUR, CRUR, UA #### [address] [address] Trini 06-13-2024 Ferritin [Mass/Vol] 195.0 ng/mL Normal 8.0-252.0 [facility] Comment on above: Performed By: #### P REGU, UA #### [address] [address] FESon 06-13-2024 Iron [Mass/Vol] 62 ug/dL Normal 50-170 [facility] Comment on above: Performed By: #### P REGU, UA #### [address] [address] Iron Sat 23 % Normal [facility] Comment on above: Performed By: #### P REGU, UA #### [address] [address] TIBC 266 mcg/dL Normal 250-450 [facility] Comment on above: Performed By: #### P REGU, UA #### [address] [address] LABORATORYOrdered By: Blossom Patel on 06-13-2024 Appearance (U) Clear (06/13/24 8:21 AM) Normal Clear AO Auto Urine SS Bilirubin Ql (U) Negative (06/13/24 8:21 AM) Normal Negative AO Auto Urine SS Color (U) Yellow (06/13/24 8:21 AM) Normal AO Auto Urine SS Glucose Test strip (U) [Mass/Vol] Negative Normal Negative AO Auto Urine SS Hemoglobin Auto test strip (U) [Mass/Vol] Negative (06/13/24 8:21 AM) Normal Negative AO Auto Urine SS Ketones Ql (U) Negative Normal Negative AO Auto Ur ine SS UA Leuk Est Negative (06/13/24 8:21 AM) Normal Negative AO Auto Urine SS UA Nitrite Negative (06/13/24 8:21 AM) Normal Negative AO Auto Urine SS UA pH 6.0 (06/13/24 8:21 AM) Normal 5.0 - 8.0 AO Auto Urine SS UA Protein Negative Normal Negative AO Auto Urine SS UA Spec Grav 1.015 (06/13/24 8:21 AM) Normal 1.015-1.025 AO Auto Urine SS UA Specimen Type Not Given (06/13/24 8:21 AM) Normal AO Auto Urine SS UA Urobilinogen 0.2 E.U./dL Normal 0.2-1.0 AO Auto Urine SS LABORATORYOrdered By: SYSTEM SYSTEM on 06-13-2024 Creatinine (U) [Mass/Vol] 38.7 mg/dL Normal 28.0 - 117.0 mg/dL AO ADM SS Protein (U) [Mass/Vol] mg/dL Normal 0 - 11 mg/dL AO ADM SS 25-hydroxyvitamin D3 [Mass/Vol] 38.7 ng/mL Invalid Interpretation Code AO ADM SS Comment on above: Interpretive Data: I nterpretive Values Based on Total 25(OH) Vitamin D: Deficient <20 ng/mL Insufficient 20 - <30 ng/mL Sufficient 30-100 ng/mL Albumin BCP dye [Mass/Vol] 3.6 G/dL Normal 3.5 - 5.0 G/dL AO ADM SS Basophils (Bld) [#/Vol] 0.0 103/mcL Normal 0.0 - 0.2 10^3/mcL AO Workflow SS Basophils/100 WBC (Bld) 0.5 % Normal 0.0 - 2.5 % AO Workflow SS Calcium [Mass/Vol] 8.8 mg/dL Normal 8.4 - 10. 2 mg/dL AO ADM SS Chloride [Moles/Vol] 102 mmol/L Normal 98 - 10 7 mmol/L AO ADM SS CO2 [Moles/Vol] 28 mmol/L Normal 22 - 29 mmol/L AO ADM SS Complement C3 [Mass/Vol] 156.0 mg/dL Normal 90.0 - 170.0 mg/dL AH ADM SS Comment on above: Interpretive Data: * *Note - New Reference Range in effect 20 Complement C4 [Mass/Vol] 31.0 mg/dL Normal 16.0 - 38.0 mg/dL AH ADM SS Creatinine [Mass/Vol] 1.22 mg/dL High 0.55 - 1.02 mg/dL AO ADM SS Comment on above: Interpretive Data: T esting performed on Siemens Dimension EXL analyzer using a modified kinetic Ave technique. Electrolyte Balance 6.0 mEq/L Normal 4.0 - 15 .0 mEq/L AO ADM SS Eosinophil, Absolute 0.1 103/mcL Normal 0.0 - 0 .7 10^3/mcL AO Workflow SS Eosinophils/100 WBC (Bld) 1.5 % Normal 0.0 - 7.0 % AO Workflow SS Erythrocyte distribution width (RBC) [Ratio] 14.0 % Normal 11.5 - 15.5 % AO Workflow SS Ferritin [Mass/Vol] 195.0 ng/mL Normal 8.0 - 25 2.0 ng/mL AO ADM SS GFR/1.73 sq M.predicted among blacks MDRD (S/P/Bld) [Vol rate/Area] 59 ml/min/1.73sqm Invalid Interpretation Code AO Chemistry S Comment on above: Interpretive Data: GFR Population mean for , Non- Americans Ages 20-29 = 116 mL/min/1.73 sq.m. Ages 30-39 = 107 mL/min/1.73 sq.m. Ages 40-49 = 99 mL/min/1.73 sq.m. Ages 50-59 = 93 mL/min/1.73 sq.m. Ages 60-69 = 85 mL/min/1.73 sq.m. Ages 70+ = 75 mL/min/1.73 sq.m. Chronic Kidney Disease: Less than 60 mL/min/1.73 square meters End Stage Renal Disease: Less than 15 mL/min/1.73 square meters GFR/1.73 sq M.predicted among non-blacks MDRD (S/P/Bld) [Vol rate/Area] 49 ml/min/1.73sqm Invalid Interpretation Code AO Chemistry S Comment on above: Interpretive Data: GFR Population mean for , Non- Americans Ages 20-29 = 116 mL/min/1.73 sq.m. Ages 30-39 = 107 mL/min/1.73 sq.m. Ages 40-49 = 99 mL/min/1.73 sq.m. Ages 50-59 = 93 mL/min/1.73 sq.m. Ages 60-69 = 85 mL/min/1.73 sq.m. Ages 70+ = 75 mL/min/1.73 sq.m. Chronic Kidney Disease: Less than 60 mL/min/1.73 square meters End Stage Renal Disease: Less than 15 mL/min/1.73 square meters HbA1c (Bld) [Mass fraction] 5.5 % Normal 4.3 - 6.4 % AO ADM SS Hematocrit (Bld) [Volume fraction] 39.0 % Normal 34.0 - 46.0 % AO Workflow SS Hemoglobin (Bld) [Mass/Vol] 12.9 G/dL Normal 12.0 - 16.0 G/dL AO Workflow SS Iron [Mass/Vol] 62 ug/dL Normal 50 - 170 mcg/dL AO ADM SS Iron binding capacity [Mass/Vol] 266 mcg/dL Normal 250 - 450 mcg/dL AO ADM SS Iron Sat 23 % Invalid Interpretation Code AO ADM SS Lymphocytes (Bld) [#/Vol] 1.3 103/mcL Normal 0.9 - 4.3 10^3/mcL AO Workflow SS Lymphocytes/100 WBC (Bld) 25.5 % Normal 20.0 - 40.0 % AO Workflow SS MCH (RBC) [Entitic mass] 29.9 pg Normal 27.0 - 33.0 pg AO Workflow SS MCHC 33.2 G/dL Normal 32.0 - 36.0 G/dL AO Workflow SS MCV (RBC) [Entitic vol] 90.1 fL Normal 80.0 - 99.0 fL AO Workflow SS Monocytes (Bld) [#/Vol] 0.3 103/mcL Normal 0.1 - 1.4 10^3/mcL AO Workflow SS Monocytes/100 WBC (Bld) 5.9 % Normal 2.0 - 13.0 % AO Workflow SS Neutrophils (Bld) [#/Vol] 3.5 103/mcL Normal 2.3 - 8.1 10^3/mcL AO Workflow SS Neutrophils/100 WBC (Bld) 66.6 % Normal 50.0 - 75.0 % AO Workflow SS Parathyrin.intact [Mass/Vol] 48.2 pg/mL Normal 18.5 - 88.0 pg/mL AH ADM SS Phosphate [Mass/Vol] 3.3 mg/dL Normal 2.7 - 4 .5 mg/dL AO ADM SS Platelet mean volume (Bld) [Entitic vol] 7.5 fL Normal 6.6 - 10.5 fL AO Workflow SS Platelets (Bld) [#/Vol] 277 103/mcL Normal 150 - 450 10^3/mcL AO Workflow SS Potassium [Moles/Vol] 4.4 mmol/L Normal 3.5 - 5.1 mmol/L AO ADM SS RBC (Bld) [#/Vol] 4.33 106/mcL Normal 4.10 - 5.3 0 10^6/mcL AO Workflow SS Sodium [Moles/Vol] 136 mmol/L Normal 136 - 145 mmol/L AO ADM SS Urea nitrogen [Mass/Vol] 15 mg/dL Normal 7 - 18 mg/dL AO ADM SS Urea nitrogen/Creatinine [Mass ratio] 12 ratio Normal 7 - 27 ratio AO ADM SS Uric Acid Lvl 7.6 mg/dL High 2.6 - 6.2 mg/dL AO ADM SS WBC (Bld) [#/Vol] 5.3 103/mcL Normal 4.5 - 10.8 10^3/mcL AO Workflow SS LABORATORYOrdered By: Yaa Maciel on 06-13-2024 Protein [Mass/Vol] 7.4 G/dL Normal 5.7 - 8.2 G/dL AH ADM SS Laboratory - Chemistry and C hemistry - challengeOrdered By: SYSTEM SYSTEM on 06-13-2024 Glucose [Mass/Vol] 111 mg/dL Invalid Interpretation Code AO ADM SS Comment on above: Interpretive Data: E stimated average glucose (eAG) is a calculated value from Hemoglobin A1C and is payroll representative of the average blood glucose level in the last 2-3 month period. Normal range: less than 114 mg/dL PRURon 06-13-2024 U Protein <6 Normal 0-11 [facility] Comment on above: Performed By: #### P LUL ISAACS UA #### [facility] [address] [place], [place] [address] PTHon 06-13-2024 PTH, Intact 48.2 pg/mL Normal 18.5-88.0 [facility] Comment on above: Performed By: #### P LUL ISAACS UA #### [facility] [address] [place], [place] [address] RFPon 06-13-2024 Albumin Level 3.6 G/dL Normal 3.5-5.0 [facility] Comment on above: Performed By: #### P REGU, UA #### [address] [address] BUN/Creatinine Ratio 12 ratio Normal 7-27 [facility] Comment on above: Performed By: #### P REGU, UA #### [address] [address] Calcium [Mass/Vol] 8.8 mg/dL Normal 8.4-10.2 [facility] Comment on above: Performed By: #### P REGU, UA #### [address] [address] Chloride [Moles/Vol] 102 mmol/L Normal 98-107 [facility] Comment on above: Performed By: #### P REGU, UA #### [place] [id number] CO2 [Moles/Vol] 28 mmol/L Normal 22-29 [facility] Comment on above: Performed By: #### P REGU, UA #### [address] [address] Creatinine [Mass/Vol] 1.22 mg/dL High 0.55-1.02 [facility] Comment on above: Result Comment: Test ing performed on Siemens Dimension EXL analyzer using a modified kinetic Ave technique. Performed By: #### P REGU, UA #### [address] [address] Electrolyte Balance 6.0 mEq/L Normal 4.0-15.0 [facility] Comment on above: Performed By: #### P REGU, UA #### [address] [address] Glucose [Mass/Vol] 111 mg/dL High 70-105 [facility] Comment on above: Performed By: #### P REGU, UA #### [address] [address] Phosphate [Mass/Vol] 3.3 mg/dL Normal 2.7-4.5 [facility] Comment on above: Performed By: #### P REGU, UA #### [address] [address] Potassium [Moles/Vol] 4.4 mmol/L Normal 3.5-5.1 [facility] Comment on above: Performed By: #### P REGU, UA #### [place] [address] Sodium [Moles/Vol] 136 mmol/L Normal 136-145 [facility] Comment on above: Performed By: #### P REGU, UA #### [place] [address] Urea nitrogen [Mass/Vol] 15 mg/dL Normal 7-18 [facility] Comment on above: Performed By: #### P REGU, UA #### [place] [address] SPEon 06-13-2024 Total Protein 7.4 G/dL Normal 5.7-8.2 [facility] Comment on above: Performed By: #### P LUL ISAACS, UA #### [address] 06-13-2024 Color (U) Yellow Normal [facility] Comment on above: Performed By: #### P RULUL Espinoza, UA #### [place] [address] Glucose (U) [Mass/Vol] Negative Normal Negative [facility] Comment on above: Performed By: #### P RUR CRUR, UA #### [place] [address] Ketones Ql (U) Negative Normal Negative [facility] Comment on above: Performed By: #### P RUR CRSELENE, UA #### [place] [phone] UA Appear Clear Normal Clear [facility] Comment on above: Performed By: #### P RURLUL, UA #### [address] [address] UA Blood Negative Normal Negative [facility] Comment on above: Performed By: #### P RUR, CRUR, UA #### [place] [phone] UA Leuk Est Negative Normal Negative [facility] Comment on above: Performed By: #### P RUR, CRUR, UA #### [place] [address] UA Nitrite Negative Normal Negative [facility] Comment on above: Performed By: #### P RUR, CRUR, UA #### [place] [address] UA pH 6.0 Normal 5.0 - 8.0 [facility] Comment on above: Performed By: #### P RUR, CRUR, UA #### [place] [address] UA Protein Negative Normal Negative [facility] Comment on above: Performed By: #### P RUR, CRUR, UA #### [place] [address] UA Spec Grav 1.015 Normal 1.015-1.025 [facility] Comment on above: Performed By: #### P RUR, CRUR, UA #### [place] [address] UA Specimen Type Not Given Normal [facility] Comment on above: Performed By: #### P RUR, CRUR, UA #### [place] [address] UA Urobilinogen 0.2 E.U./dL Normal 0.2-1.0 [facility] Comment on above: Performed By: #### P RUR, CRUR, UA #### [place] [address] Urobilinogen (U) [Mass/Vol] Negative Normal Negative [facility] Comment on above: Performed By: #### P LUL ISAACS UA #### [place] [id number] [place], [place] [address] URICon 06-13-2024 Uric Acid Lvl 7.6 mg/dL High 2.6-6.2 [facility] Comment on above: Performed By: #### P TONI UA #### [place] [address] [place], [place] [address] VIDHon 06-13-2024 Vit. D 25-Hydroxy 38.7 ng/mL Normal [facility] Comment on above: Result Comment: Inte rpretive Values Based on Total 25([place]) Vitamin D: Deficient <20 ng/mL Insufficient 20 - <30 ng/mL Sufficient 30-100 ng/mL Performed By: #### P TONI UA #### [place] [address] [place], [place] [address] US THYROIDon 05-14-2024 US THYROID ORIGINAL EXAMINATION: ULTRASOUND OF THE THYROID WITH COLOR DOPPLER FLOW EVALUATION05/13/2024 3:29 pm Ultrasound Thyroid COMPARISON: None HISTORY: ORDERING SYSTEM PROVIDED HISTORY: Reason for Exam: Nontoxic single thyroid nodule, All images are recorded and archived. FINDINGS: Size right thyroid lobe: 5.0 x 2.1 x 1.7 cm Size left thyroid lobe: 4.7 x 2.0 x 1.1 cm Size isthmus: 0.3 cm Texture: Homogeneous Estimated total number of nodules greater than or equal to 1 cm: 0 No discrete thyroid mass or nodule. IMPRESSION: Unremarkable thyroid ultrasound. Interpreted by: Maximino Thornton DO Preliminary Report By: Maximino Thornton DO Electronically signed By Maximino Thornton DO Dictated Date: 05/14/2024 3:47:27 PM Prelim Date: 05/14/2024 3:49:29 PM Sign Date: 05/14/2024 3:49:29 PM Ordering Provider: RYANNE FINN FT3on 05-13-2024 Free T3 [Mass/Vol] 2.77 pg/mL Normal 2.30-4.20 AULTTOMMY FINN Comment on above: Performed By: #### T SH, FT3, FT4 #### [facility] [address] [place] [address] FT4on 05-13-2024 Free T4 [Mass/Vol] 1.10 ng/dL Normal 0.89-1.76 KELLY FINN Comment on above: Result Comment: No te - New Reference Range in effect 20 Performed By: #### T SH, FT3, FT4 #### [address] [address] TSHon 05-13-2024 TSH 2.516 mIU/mL Normal 0.550-4.780 ANICETO FINN Comment on above: Result Comment: No te - New Reference Range in effect 20 Performed By: #### T SH, FT3, FT4 #### [address] [address] .GFRon 04-13-2024 GFR 58 ml/min/1.73sqm Normal [facility] ([place]) Comment on above: Result Comment: GFR Population mean for , Non- Americans Ages 20-29 = 116 mL/min/1.73 sq.m. Ages 30-39 = 107 mL/min/1.73 sq.m. Ages 40-49 = 99 mL/min/1.73 sq.m. Ages 50-59 = 93 mL/min/1.73 sq.m. Ages 60-69 = 85 mL/min/1.73 sq.m. Ages 70+ = 75 mL/min/1.73 sq.m. Chronic Kidney Disease: Less than 60 mL/min/1.73 square meters End Stage Renal Disease: Less than 15 mL/min/1.73 square meters Performed By: #### B MP, GFR #### [place] [address] [address] GFR Non- 47 ml/min/1.73sqm Normal [facility] ([place]) Comment on above: Result Comment: GFR Population mean for , Non- Americans Ages 20-29 = 116 mL/min/1.73 sq.m. Ages 30-39 = 107 mL/min/1.73 sq.m. Ages 40-49 = 99 mL/min/1.73 sq.m. Ages 50-59 = 93 mL/min/1.73 sq.m. Ages 60-69 = 85 mL/min/1.73 sq.m. Ages 70+ = 75 mL/min/1.73 sq.m. Chronic Kidney Disease: Less than 60 mL/min/1.73 square meters End Stage Renal Disease: Less than 15 mL/min/1.73 square meters Performed By: #### B MP, GFR #### [address] [address] BMPon 04-13-2024 BUN/Creatinine Ratio 12 ratio Normal 7-27 [facility] ([place]) Comment on above: Performed By: #### B MP, GFR #### [address] [address] Calcium [Mass/Vol] 9.0 mg/dL Normal 8.4-10.2 [facility] ([place]) Comment on above: Performed By: #### B MP, GFR #### [address] [address] Chloride [Moles/Vol] 103 mmol/L Normal 98-107 [facility] ([place]) Comment on above: Performed By: #### B MP, GFR #### [address] [address] CO2 [Moles/Vol] 28 mmol/L Normal 22-29 [facility] ([place]) Comment on above: Performed By: #### B MP, GFR #### [address] [address] Creatinine [Mass/Vol] 1.25 mg/dL High 0.55-1.02 [facility] ([place]) Comment on above: Result Comment: Test ing performed on Siemens Dimension EXL analyzer using a modified kinetic Ave technique. Performed By: #### B MP, GFR #### [address] [address] Electrolyte Balance 8.0 mEq/L Normal 4.0-15.0 [facility] ([place]) Comment on above: Performed By: #### B MP, GFR #### [address] [address] Glucose [Mass/Vol] 98 mg/dL Normal 70-105 [facility] ([place]) Comment on above: Performed By: #### B MP, GFR #### [place] [address] [place], [place] [address] Potassium [Moles/Vol] 4.5 mmol/L Normal 3.5-5.1 [facility] ([place]) Comment on above: Performed By: #### B MP, GFR #### [place] [address] [place], [place] [address] Sodium [Moles/Vol] 139 mmol/L Normal 136-145 [facility] ([place]) Comment on above: Performed By: #### B MP, GFR #### [place] [address] [place], [place] [address] Urea nitrogen [Mass/Vol] 15 mg/dL Normal 7-18 [facility] ([place]) Comment on above: Performed By: #### B MP, GFR #### [place] [address] [place], [place] [address] LABORATORYOrdered By: SYSTEM SYSTEM on 04-13-2024 Calcium [Mass/Vol] 9.0 mg/dL Normal 8.4 - 10. 2 mg/dL AO ADM SS Chloride [Moles/Vol] 103 mmol/L Normal 98 - 10 7 mmol/L AO ADM SS CO2 [Moles/Vol] 28 mmol/L Normal 22 - 29 mmol/L AO ADM SS Creatinine [Mass/Vol] 1.25 mg/dL High 0.55 - 1.02 mg/dL AO ADM SS Comment on above: Interpretive Data: T esting performed on [employer] Dimension EXL analyzer using a modified kinetic Ave technique. Electrolyte Balance 8.0 mEq/L Normal 4.0 - 15 .0 mEq/L AO ADM SS GFR/1.73 sq M.predicted among blacks MDRD (S/P/Bld) [Vol rate/Area] 58 ml/min/1.73sqm Invalid Interpretation Code AO Chemistry S Comment on above: Interpretive Data: GFR Population mean for , Non- Americans Ages 20-29 = 116 mL/min/1.73 sq.m. Ages 30-39 = 107 mL/min/1.73 sq.m. Ages 40-49 = 99 mL/min/1.73 sq.m. Ages 50-59 = 93 mL/min/1.73 sq.m. Ages 60-69 = 85 mL/min/1.73 sq.m. Ages 70+ = 75 mL/min/1.73 sq.m. Chronic Kidney Disease: Less than 60 mL/min/1.73 square meters End Stage Renal Disease: Less than 15 mL/min/1.73 square meters GFR/1.73 sq M.predicted among non-blacks MDRD (S/P/Bld) [Vol rate/Area] 47 ml/min/1.73sqm Invalid Interpretation Code AO Chemistry S Comment on above: Interpretive Data: GFR Population mean for , Non- Americans Ages 20-29 = 116 mL/min/1.73 sq.m. Ages 30-39 = 107 mL/min/1.73 sq.m. Ages 40-49 = 99 mL/min/1.73 sq.m. Ages 50-59 = 93 mL/min/1.73 sq.m. Ages 60-69 = 85 mL/min/1.73 sq.m. Ages 70+ = 75 mL/min/1.73 sq.m. Chronic Kidney Disease: Less than 60 mL/min/1.73 square meters End Stage Renal Disease: Less than 15 mL/min/1.73 square meters Glucose [Mass/Vol] 98 mg/dL Normal 70 - 105 mg/dL AO ADM SS Potassium [Moles/Vol] 4.5 mmol/L Normal 3.5 - 5.1 mmol/L AO ADM SS Sodium [Moles/Vol] 139 mmol/L Normal 136 - 145 mmol/L AO ADM SS Urea nitrogen [Mass/Vol] 15 mg/dL Normal 7 - 18 mg/dL AO ADM SS Urea nitrogen/Creatinine [Mass ratio] 12 ratio Normal 7 - 27 ratio AO ADM SS .Auto Diffon 10-28-2023 Basophil, Absolute 0.1 10 3/mcL Normal 0.0-0.2 [facility] ([place]) Comment on above: Performed By: #### P HOS, VIDH, GFR, LIPID, CBC, ADIFF, ANEU, BMP #### [place] [address] #### PTH #### [address] [address] Basophils/100 WBC (Bld) 1.1 % Normal 0.0-2.5 [facility] ([place]) Comment on above: Performed By: #### P HOS, VIDH, GFR, LIPID, CBC, ADIFF, ANEU, BMP #### [address] [address] #### PTH #### [address] [address] Eosinophil, Absolute 0.1 10 3/mcL Normal 0.0-0.4 [facility] ([place]) Comment on above: Performed By: #### P HOS, VIDH, GFR, LIPID, CBC, ADIFF, ANEU, BMP #### [place] [address] #### PTH #### [address] [address] Eosinophils/100 WBC (Bld) 1.8 % Normal 0.0-7.0 [facility] ([place]) Comment on above: Performed By: #### P HOS, VIDH, GFR, LIPID, CBC, ADIFF, ANEU, BMP #### [place] [address] #### PTH #### [address] [address] Lymphocyte, Absolute 1.5 10 3/mcL Normal 0.8-3.9 [facility] ([place]) Comment on above: Performed By: #### P HOS, VIDH, GFR, LIPID, CBC, ADIFF, ANEU, BMP #### [address] [address] #### PTH #### [address] [address] Lymphocytes/100 WBC (Bld) 26.7 % Normal 10.0-50.0 [facility] ([place]) Comment on above: Performed By: #### P HOS, VIDH, GFR, LIPID, CBC, ADIFF, ANEU, BMP #### [place] [address] #### PTH #### [address] [address] Monocyte, Absolute 0.4 10 3/mcL Normal 0.2-1.0 [facility] ([place]) Comment on above: Performed By: #### P HOS, VIDH, GFR, LIPID, CBC, ADIFF, ANEU, BMP #### [address] [address] #### PTH #### [address] [address] Monocytes/100 WBC (Bld) 8.0 % Normal 1.7-13.0 [facility] ([place]) Comment on above: Performed By: #### P HOS, VIDH, GFR, LIPID, CBC, ADIFF, ANEU, BMP #### [address] [address] #### PTH #### [address] [address] Neutrophils/100 WBC (Bld) 62.4 % Normal 37.0-80.0 [facility] ([place]) Comment on above: Performed By: #### P HOS, VIDH, GFR, LIPID, CBC, ADIFF, ANEU, BMP #### [address] [address] #### PTH #### [address] [address] .GFRon 10-28-2023 GFR Non- 49 ml/min/1.73sqm Normal [facility] ([place]) Comment on above: Result Comment: GFR Population mean for , Non- Americans Ages 20-29 = 116 mL/min/1.73 sq.m. Ages 30-39 = 107 mL/min/1.73 sq.m. Ages 40-49 = 99 mL/min/1.73 sq.m. Ages 50-59 = 93 mL/min/1.73 sq.m. Ages 60-69 = 85 mL/min/1.73 sq.m. Ages 70+ = 75 mL/min/1.73 sq.m. Chronic Kidney Disease: Less than 60 mL/min/1.73 square meters End Stage Renal Disease: Less than 15 mL/min/1.73 square meters Performed By: #### P HOS, VIDH, GFR, LIPID, CBC, ADIFF, ANEU, BMP ####[place] [id number]#### PTH ####[address] [address] GFR 59 ml/min/1.73sqm Normal [facility] ([place]) Comment on above: Result Comment: GFR Population mean for , Non- Americans Ages 20-29 = 116 mL/min/1.73 sq.m. Ages 30-39 = 107 mL/min/1.73 sq.m. Ages 40-49 = 99 mL/min/1.73 sq.m. Ages 50-59 = 93 mL/min/1.73 sq.m. Ages 60-69 = 85 mL/min/1.73 sq.m. Ages 70+ = 75 mL/min/1.73 sq.m. Chronic Kidney Disease: Less than 60 mL/min/1.73 square meters End Stage Renal Disease: Less than 15 mL/min/1.73 square meters Performed By: #### P HOS, VIDH, GFR, LIPID, CBC, ADIFF, ANEU, BMP ####[place] [address]#### PTH ####[place] [address] .NEUABSon 10-28-2023 Neutrophil, Absolute 3.5 10 3/mcL Normal 2.9-6.2 [facility] ([place]) Comment on above: Performed By: #### P HOS, VIDH, GFR, LIPID, CBC, ADIFF, ANEU, BMP ####[place] [address]#### PTH ####[place] [address] BMPon 10-28-2023 BUN/Creatinine Ratio 16 ratio Normal 7-27 [facility] ([place]) Comment on above: Performed By: #### P HOS, VIDH, GFR, LIPID, CBC, ADIFF, ANEU, BMP ####[place] [address]#### PTH ####[place] [address] Calcium [Mass/Vol] 9.1 mg/dL Normal 8.4-10.2 [facility] ([place]) Comment on above: Performed By: #### P HOS, VIDH, GFR, LIPID, CBC, ADIFF, ANEU, BMP ####[place] [address]#### PTH ####[place] [address] Chloride [Moles/Vol] 105 mmol/L Normal 98-107 [facility] ([place]) Comment on above: Performed By: #### P HOS, VIDH, GFR, LIPID, CBC, ADIFF, ANEU, BMP ####[place] [address]#### PTH ####[place] [address] CO2 [Moles/Vol] 28 mmol/L Normal 22-29 [facility] ([place]) Comment on above: Performed By: #### P HOS, VIDH, GFR, LIPID, CBC, ADIFF, ANEU, BMP ####[place] [address]#### PTH ####[place] [address] Creatinine [Mass/Vol] 1.22 mg/dL High 0.55-1.02 [facility] ([place]) Comment on above: Performed By: #### P HOS, VIDH, GFR, LIPID, CBC, ADIFF, ANEU, BMP ####[place] [address]#### PTH ####[place] [address] Electrolyte Balance 5.0 mEq/L Normal 4.0-15.0 [facility] ([place]) Comment on above: Performed By: #### P HOS, VIDH, GFR, LIPID, CBC, ADIFF, ANEU, BMP ####[place] [address]#### PTH ####[address] [address] Glucose [Mass/Vol] 99 mg/dL Normal 70-105 [facility] ([place]) Comment on above: Performed By: #### P HOS, VIDH, GFR, LIPID, CBC, ADIFF, ANEU, BMP ####[place] [address]#### PTH ####[address] [address] Potassium [Moles/Vol] 4.5 mmol/L Normal 3.5-5.1 [facility] ([place]) Comment on above: Performed By: #### P HOS, VIDH, GFR, LIPID, CBC, ADIFF, ANEU, BMP ####[place] [address]#### PTH ####[place] [address] Sodium [Moles/Vol] 138 mmol/L Normal 136-145 [facility] ([place]) Comment on above: Performed By: #### P HOS, VIDH, GFR, LIPID, CBC, ADIFF, ANEU, BMP ####[place] [address]#### PTH ####[place] [address] Urea nitrogen [Mass/Vol] 20 mg/dL High 7-18 [facility] ([place]) Comment on above: Performed By: #### P HOS, VIDH, GFR, LIPID, CBC, ADIFF, ANEU, BMP ####[place] [address]#### PTH ####[address] [address] CBCon 10-28-2023 Erythrocyte distribution width (RBC) [Ratio] 14.1 % Normal 11.5-14.5 [facility] ([place]) Comment on above: Performed By: #### P HOS, VIDH, GFR, LIPID, CBC, ADIFF, ANEU, BMP #### [place] [address] #### PTH #### [place] [address] Hematocrit (Bld) [Volume fraction] 39.1 % Normal 37.0-47.0 [facility] ([place]) Comment on above: Performed By: #### P HOS, VIDH, GFR, LIPID, CBC, ADIFF, ANEU, BMP #### [place] [address] #### PTH #### [place] [address] Hgb 13.3 G/dL Normal 12.0-16.0 [facility] ([place]) Comment on above: Performed By: #### P HOS, VIDH, GFR, LIPID, CBC, ADIFF, ANEU, BMP #### [place] [address] #### PTH #### [place] [address] MCH (RBC) [Entitic mass] 29.8 pg Normal 27.0-31.2 [facility] ([place]) Comment on above: Performed By: #### P HOS, VIDH, GFR, LIPID, CBC, ADIFF, ANEU, BMP #### [place] [address] #### PTH #### [place] [address] MCHC 33.9 G/dL Normal 33.0-37.0 [facility] ([place]) Comment on above: Performed By: #### P HOS, VIDH, GFR, LIPID, CBC, ADIFF, ANEU, BMP #### [place] [address] #### PTH #### [place] [address] MCV (RBC) [Entitic vol] 87.8 fL Normal 80.0-94.0 [facility] ([place]) Comment on above: Performed By: #### P HOS, VIDH, GFR, LIPID, CBC, ADIFF, ANEU, BMP #### [place] [address] #### PTH #### [place] [address] Platelet 266 10 3/mcL Normal 130-400 [facility] ([place]) Comment on above: Performed By: #### P HOS, VIDH, GFR, LIPID, CBC, ADIFF, ANEU, BMP #### [place] [address] #### PTH #### [place] [address] Platelet mean volume (Bld) [Entitic vol] 7.4 fL Normal 7.4-10.4 [facility] ([place]) Comment on above: Performed By: #### P HOS, VIDH, GFR, LIPID, CBC, ADIFF, ANEU, BMP #### [place] [address] #### PTH #### [place] [address] RBC 4.46 10 6/mcL Normal 4.20-5.40 [facility] ([place]) Comment on above: Performed By: #### P HOS, VIDH, GFR, LIPID, CBC, ADIFF, ANEU, BMP #### [place] [address] #### PTH #### [place] [address] WBC 5.6 10 3/mcL Normal 4.6-10.8 [facility] ([place]) Comment on above: Performed By: #### P HOS, VIDH, GFR, LIPID, CBC, ADIFF, ANEU, BMP #### [place] [address] #### PTH #### [place] [address] LABORATORYOrdered By: SYSTEM SYSTEM on 10-28-2023 25-hydroxyvitamin D3 [Mass/Vol] 36.9 ng/mL Invalid Interpretation Code AO ADM SS Comment on above: Interpretive Data: I nterpretive Values Based on Total 25(OH) Vitamin D: Deficient <20 ng/mL Insufficient 20 - <30 ng/mL Sufficient 30-100 ng/mL Basophil, Absolute 0.1 103/mcL Normal 0.0 - 0.2 10^3/mcL AO Workflow SS Basophils/100 WBC (Bld) 1.1 % Normal 0.0 - 2.5 % AO Workflow SS Calcium [Mass/Vol] 9.1 mg/dL Normal 8.4 - 10. 2 mg/dL AO ADM SS Chloride [Moles/Vol] 105 mmol/L Normal 98 - 10 7 mmol/L AO ADM SS CO2 [Moles/Vol] 28 mmol/L Normal 22 - 29 mmol/L AO ADM SS Creatinine [Mass/Vol] 1.22 mg/dL High 0.55 - 1.02 mg/dL AO ADM SS Electrolyte Balance 5.0 mEq/L Normal 4.0 - 15 .0 mEq/L AO ADM SS Eosinophil, Absolute 0.1 103/mcL Normal 0.0 - 0 .4 10^3/mcL AO Workflow SS Eosinophils/100 WBC (Bld) 1.8 % Normal 0.0 - 7.0 % AO Workflow SS Erythrocyte distribution width (RBC) [Ratio] 14.1 % Normal 11.5 - 14.5 % AO Workflow SS GFR/1.73 sq M.predicted among blacks MDRD (S/P/Bld) [Vol rate/Area] 59 ml/min/1.73sqm Invalid Interpretation Code AO Chemistry S Comment on above: Interpretive Data: GFR Population mean for , Non- Americans Ages 20-29 = 116 mL/min/1.73 sq.m. Ages 30-39 = 107 mL/min/1.73 sq.m. Ages 40-49 = 99 mL/min/1.73 sq.m. Ages 50-59 = 93 mL/min/1.73 sq.m. Ages 60-69 = 85 mL/min/1.73 sq.m. Ages 70+ = 75 mL/min/1.73 sq.m. Chronic Kidney Disease: Less than 60 mL/min/1.73 square meters End Stage Renal Disease: Less than 15 mL/min/1.73 square meters GFR/1.73 sq M.predicted among non-blacks MDRD (S/P/Bld) [Vol rate/Area] 49 ml/min/1.73sqm Invalid Interpretation Code AO Chemistry S Comment on above: Interpretive Data: GFR Population mean for , Non- Americans Ages 20-29 = 116 mL/min/1.73 sq.m. Ages 30-39 = 107 mL/min/1.73 sq.m. Ages 40-49 = 99 mL/min/1.73 sq.m. Ages 50-59 = 93 mL/min/1.73 sq.m. Ages 60-69 = 85 mL/min/1.73 sq.m. Ages 70+ = 75 mL/min/1.73 sq.m. Chronic Kidney Disease: Less than 60 mL/min/1.73 square meters End Stage Renal Disease: Less than 15 mL/min/1.73 square meters Glucose [Mass/Vol] 99 mg/dL Normal 70 - 105 mg/dL AO ADM SS Hematocrit (Bld) [Volume fraction] 39.1 % Normal 37.0 - 47.0 % AO Workflow SS Hemoglobin (Bld) [Mass/Vol] 13.3 G/dL Normal 12.0 - 16.0 G/dL AO Workflow SS Lymphocyte, Absolute 1.5 103/mcL Normal 0.8 - 3 .9 10^3/mcL AO Workflow SS Lymphocytes/100 WBC (Bld) 26.7 % Normal 10.0 - 50.0 % AO Workflow SS MCH (RBC) [Entitic mass] 29.8 pg Normal 27.0 - 31.2 pg AO Workflow SS MCHC 33.9 G/dL Normal 33.0 - 37.0 G/dL AO Workflow SS MCV (RBC) [Entitic vol] 87.8 fL Normal 80.0 - 94.0 fL AO Workflow SS Monocyte, Absolute 0.4 103/mcL Normal 0.2 - 1.0 10^3/mcL AO Workflow SS Monocytes/100 WBC (Bld) 8.0 % Normal 1.7 - 13.0 % AO Workflow SS Neutrophil, Absolute 3.5 103/mcL Normal 2.9 - 6 .2 10^3/mcL AO Workflow SS Neutrophils/100 WBC (Bld) 62.4 % Normal 37.0 - 80.0 % AO Workflow SS Parathyrin.intact [Mass/Vol] 52.2 pg/mL Normal 18.5 - 88.0 pg/mL AH ADM SS Phosphate [Mass/Vol] 4.5 mg/dL Normal 2.7 - 4 .5 mg/dL AO ADM SS Platelet mean volume (Bld) [Entitic vol] 7.4 fL Normal 7.4 - 10.4 fL AO Workflow SS Platelets (Bld) [#/Vol] 266 103/mcL Normal 130 - 400 10^3/mcL AO Workflow SS Potassium [Moles/Vol] 4.5 mmol/L Normal 3.5 - 5.1 mmol/L AO ADM SS RBC (Bld) [#/Vol] 4.46 106/mcL Normal 4.20 - 5.4 0 10^6/mcL AO Workflow SS Sodium [Moles/Vol] 138 mmol/L Normal 136 - 145 mmol/L AO ADM SS Urea nitrogen [Mass/Vol] 20 mg/dL High 7 - 18 mg/dL AO ADM SS Urea nitrogen/Creatinine [Mass ratio] 16 ratio Normal 7 - 27 ratio AO ADM SS WBC (Bld) [#/Vol] 5.6 103/mcL Normal 4.6 - 10.8 10^3/mcL AO Workflow SS LABORATORYOrdered By: Vinita Murrell on 10-28-2023 Cholesterol [Mass/Vol] 210 mg/dL High 0 - 200 mg/dL AO ADM SS Comment on above: Interpretive Data: C holesterol Reference Interval: Less than 200 Desirable 200-239 Borderline high risk 240 and above High risk Cholesterol in HDL [Mass/Vol] 44 mg/dL Normal 40 - 60 mg/dL AO ADM SS Cholesterol in LDL [Mass/Vol] 129 mg/dL Normal 0 - 130 mg/dL AO ADM SS Triglyceride [Mass/Vol] 185 mg/dL High 0 - 150 mg/dL AO ADM SS Comment on above: Interpretive Data: T riglyceride Reference Interval: Less than 150 Normal 150-199 Borderline high risk 200-499 High risk 500 or higher Very high risk LIPIDon 10-28-2023 Cholesterol [Mass/Vol] 210 mg/dL High 0-200 [facility] ([place]) Comment on above: Result Comment: Chol esterol Reference Interval: Less than 200 Desirable 200-239 Borderline high risk 240 and above High risk Performed By: #### P HOS, VIDH, GFR, LIPID, CBC, ADIFF, ANEU, BMP ####[facility] [address] [place] [address]#### PTH ####[address] [address] Cholesterol in HDL [Mass/Vol] 44 mg/dL Normal 40-60 [facility] ([place]) Comment on above: Performed By: #### P HOS, VIDH, GFR, LIPID, CBC, ADIFF, ANEU, BMP ####[address] [address]#### PTH ####[place] [address] Cholesterol in LDL [Mass/Vol] 129 mg/dL Normal 0-130 [facility] ([place]) Comment on above: Performed By: #### P HOS, VIDH, GFR, LIPID, CBC, ADIFF, ANEU, BMP ####[place] [address]#### PTH ####[place] [address] Triglyceride [Mass/Vol] 185 mg/dL High 0-150 [facility] ([place]) Comment on above: Result Comment: Trig lyceride Reference Interval: Less than 150 Normal 150-199 Borderline high risk 200-499 High risk 500 or higher Very high risk Performed By: #### P HOS, VIDH, GFR, LIPID, CBC, ADIFF, ANEU, BMP ####[place] [address]#### PTH ####[place] [address] PHOSon 10-28-2023 Phosphate [Mass/Vol] 4.5 mg/dL Normal 2.7-4.5 [facility] ([place]) Comment on above: Performed By: #### P HOS, VIDH, GFR, LIPID, CBC, ADIFF, ANEU, BMP ####[place] [address]#### PTH ####[place] [address] PTHon 10-28-2023 PTH, Intact 52.2 pg/mL Normal 18.5-88.0 [facility] ([place]) Comment on above: Performed By: #### P HOS, VIDH, GFR, LIPID, CBC, ADIFF, ANEU, BMP ####[address] [place], [place] [address]#### PTH ####[place] [address] VIDHon 10-28-2023 Vit. D 25-Hydroxy 36.9 ng/mL Normal [facility] ([place]) Comment on above: Result Comment: Inte rpretive Values Based on Total 25(OH) Vitamin D: Deficient <20 ng/mL Insufficient 20 - <30 ng/mL Sufficient 30-100 ng/mL Performed By: #### P HOS, VIDH, GFR, LIPID, CBC, ADIFF, ANEU, BMP ####[facility] [place], [place] [address]#### PTH ####[place] [address] MRI SPINE LUMBAR W/O CONTRAS Ton 10-18-2023 MRI SPINE LUMBAR W/O CONTRAST ORIGINAL EXAMINATION: MRI OF THE LUMBAR SPINE WITHOUT CONTRAST, 10/18/2023 2:39 pm TECHNIQUE: Multiplanar multisequence MRI of the lumbar spine was performed without the administration of intravenous contrast. COMPARISON: None. HISTORY: ORDERING SYSTEM PROVIDED HISTORY: Reason for Exam: LUMBAR SPONDYLOSIS Pain low back radiating down both legs. For the purposes of this dictation, there are 5 lumbar type vertebral bodies with the most caudal fully segmented body denoted as L5. FINDINGS: Alignment is maintained. Vertebral body heights are preserved. There is disc desiccation and mild disc height loss from L2-3 through L5-S1. Type 1 Modic changes seen at L3-4 and L4-5. Scattered hemangiomas are identified, most prominent in L1. The conus terminates at a normal level and the nerve roots of the cauda equina appear unremarkable. There is mild edema surrounding the left L4-5 facet joint which is favored reactive. L1-L2: No canal or neural foraminal stenosis. L2-L3: High-intensity zone of the disc without canal or neural foraminal stenosis. L3-L4: Mild generalized disc bulge. Facet arthropathy with a left facet joint effusion. Ligamentum flavum hypertrophy. No canal stenosis. Minimal left and mild right neural foraminal stenosis. Disc/osteophyte contacts the exited right L3 nerve root in the extraforaminal zone. L4-L5: Mild generalized disc bulge. Facet arthropathy and ligamentum flavum hypertrophy without canal stenosis. Mild left and no right neural foraminal stenosis. L5-S1: Generalized disc bulge with a high-intensity zone. Facet arthropathy. The canal has largely tapered. No superimposed degenerative canal stenosis. Minimal left and no significant right neural foraminal stenosis. IMPRESSION: Mild multilevel degenerative changes as above. Interpreted by: Jelena Ricci MD Preliminary Report By: Jelena Ricci MD Electronically signed By Jelena Ricci MD Dictated Date: 10/18/2023 2:44:56 PM Prelim Date: 10/18/2023 2:50:35 PM Sign Date: 10/18/2023 2:50:35 PM Ordering Provider: BRISA DIA [facility] ([place]) US THYROIDon 05-23-2023 US THYROID ORIGINAL EXAMINATION: ULTRASOUND OF THE THYROID WITH COLOR DOPPLER FLOW [id number]/5/2023 6:18 pm US THYROID COMPARISON: Ultrasound 11/15/2022 HISTORY: ORDERING SYSTEM PROVIDED HISTORY: Reason for Exam: nontoxic goiter, FINDINGS: RIGHT lobe: 5.0 x 2.0 x 1.8 cm LEFT lobe: 4.9 x 2.1 x 1.6 cm Isthmus is 0.4 cm. The gland is homogeneous with normal vascularity.. Estimated total number of nodules greater than or equal to 1 cm: 0 There is again visualization of a solid hypoechoic 7 x 6 x 7 mm nodule in the mid right lobe posteriorly that is stable. No other focal thyroid abnormality. IMPRESSION: Stable subcentimeter right thyroid nodule. This is too small for ACR TIRADS characterization and is statistically benign requiring no follow-up imaging. ACR TI-RADS 2017 Recommendations: TR1(0 points) : No FNA or follow up TR2 (2 points) : No FNA or follow up TR3 (3 points) : FNA if >/= 2.5 cm, follow up if 1.5 - 2.4 cm in 1, 3, and 5 years TR4 (4-6 points) : FNA if >/= 1.5 cm, follow up if 1.0 - 1.4 cm in 1, 2, 3, and 5 years TR5 (>/= 7 points) : FNA if >/= 1.0 cm, follow up if 0.5 - 0.9 cm every year for 5 years *ACR TI-RADS recommends that no more than two nodules with the highest ACR TI-RADS total point should be biopsied and no more than four nodules should be followed. Interpreted by: Allan Alonso MD Preliminary Report By: Allan Alonso MD Electronically signed By Allan Alonso MD Dictated Date: 05/23/2023 4:01:18 PM Prelim Date: 05/23/2023 4:02:53 PM Sign Date: 05/23/2023 4:02:53 PM Ordering Provider: RYANNE Moreland [facility] ([place]) [id number] 05-05-2023 SARS-CoV-2 (COVID-19) RNA JEREMY+probe Ql (Unsp spec) Negative Normal Negative [facility] ([place]) Comment on above: Performed By: #### C OVD19 #### [facility] [address] [address] SARS-CoV-2 (COVID-19) RNA JEREMY+probe Ql (Unsp spec) Normal [facility] ([place]) Comment on above: Result Comment: Nega tive results do not preclude SARS-CoV-2 infection and should not be used as the sole basis for patient management decisions. Negative results must be combined with clinical observations, patient history, and epidemiological information. There is a risk of false negative values resulting from improperly collected, transported, or handled specimens. There is a risk of false negative values due to the presence of sequence variants in the pathogen targets of the assay, procedural errors, amplification inhibitors in specimens, or inadequate numbers of organisms for amplification. JESÚS SARS-CoV-2 Assay is a Real-Time reverse-transcriptase polymerase chain reaction (RT-PCR) based qualitative in vitro diagnostic test intended for the qualitative detection of nucleic acid from the SARS-CoV-2 in nasopharyngeal swab specimens collected from individuals suspected of COVID-19 by their healthcare provider. Testing is limited to laboratories certified under the Clinical Laboratory Improvement Amendments of 1988 (CLIA), 42 U.S.C. ?263a, to perform moderate and high complexity tests. COVID-19 Int Performed By: #### C OVD19 #### [facility] [address] [address] .GFRon 04-26-2023 GFR 67 ml/min/1.73sqm Normal [facility] ([place]) Comment on above: Result Comment: GFR Population mean for , Non- Americans Ages 20-29 = 116 mL/min/1.73 sq.m. Ages 30-39 = 107 mL/min/1.73 sq.m. Ages 40-49 = 99 mL/min/1.73 sq.m. Ages 50-59 = 93 mL/min/1.73 sq.m. Ages 60-69 = 85 mL/min/1.73 sq.m. Ages 70+ = 75 mL/min/1.73 sq.m. Chronic Kidney Disease: Less than 60 mL/min/1.73 square meters End Stage Renal Disease: Less than 15 mL/min/1.73 square meters Performed By: #### B MP, GFR #### [address] [address] GFR Non- 56 ml/min/1.73sqm Normal [facility] ([place]) Comment on above: Result Comment: GFR Population mean for , Non- Americans Ages 20-29 = 116 mL/min/1.73 sq.m. Ages 30-39 = 107 mL/min/1.73 sq.m. Ages 40-49 = 99 mL/min/1.73 sq.m. Ages 50-59 = 93 mL/min/1.73 sq.m. Ages 60-69 = 85 mL/min/1.73 sq.m. Ages 70+ = 75 mL/min/1.73 sq.m. Chronic Kidney Disease: Less than 60 mL/min/1.73 square meters End Stage Renal Disease: Less than 15 mL/min/1.73 square meters Performed By: #### B MP, GFR #### [address] [address] BMPon 04-26-2023 BUN/Creatinine Ratio 14 ratio Normal 7-27 [facility] ([place]) Comment on above: Performed By: #### B MP, GFR #### [address] [address] Calcium [Mass/Vol] 8.4 mg/dL Normal 8.4-10.2 [facility] ([place]) Comment on above: Performed By: #### B MP, GFR #### [address] [address] Chloride [Moles/Vol] 103 mmol/L Normal 98-107 [facility] ([place]) Comment on above: Performed By: #### B MP, GFR #### [address] [address] CO2 [Moles/Vol] 27 mmol/L Normal 22-29 [facility] ([place]) Comment on above: Performed By: #### B MP, GFR #### [address] [address] Creatinine [Mass/Vol] 1.09 mg/dL High 0.55-1.02 [facility] ([place]) Comment on above: Performed By: #### B MP, GFR #### [address] [address] Electrolyte Balance 7.0 mEq/L Normal 4.0-15.0 [facility] ([place]) Comment on above: Performed By: #### B MP, GFR #### [address] [address] Glucose [Mass/Vol] 93 mg/dL Normal 70-105 [facility] ([place]) Comment on above: Performed By: #### B MP, GFR #### [address] [address] Potassium [Moles/Vol] 4.1 mmol/L Normal 3.5-5.1 [facility] ([place]) Comment on above: Performed By: #### B MP, GFR #### [address] [address] Sodium [Moles/Vol] 137 mmol/L Normal 136-145 [facility] ([place]) Comment on above: Performed By: #### B MP, GFR #### [address] [address] Urea nitrogen [Mass/Vol] 15 mg/dL Normal 7-18 [facility] ([place]) Comment on above: Performed By: #### B MP, GFR #### [facility] [place] [address] LABORATORYOrdered By: SYSTEM SYSTEM on 04-26-2023 Calcium [Mass/Vol] 8.4 mg/dL Invalid Interpretation Code 8.4 - 10.2 mg/dL AO ADM SS Chloride [Moles/Vol] 103 mmol/L Invalid Interpretation Code 98 - 107 mmol/L AO ADM SS CO2 [Moles/Vol] 27 mmol/L Invalid Interpretation Code 22 - 29 mmol/L AO ADM SS Creatinine [Mass/Vol] 1.09 mg/dL Invalid Interpretation Code 0.55 - 1.02 mg/dL AO ADM SS Electrolyte Balance 7.0 mEq/L Invalid Interpretation Code 4.0 - 15.0 mEq/L AO ADM SS GFR/1.73 sq M.predicted among blacks MDRD (S/P/Bld) [Vol rate/Area] 67 ml/min/1.73sqm Invalid Interpretation Code AO Chemistry S Comment on above: Interpretive Data: GFR Population mean for , Non- Americans Ages 20-29 = 116 mL/min/1.73 sq.m. Ages 30-39 = 107 mL/min/1.73 sq.m. Ages 40-49 = 99 mL/min/1.73 sq.m. Ages 50-59 = 93 mL/min/1.73 sq.m. Ages 60-69 = 85 mL/min/1.73 sq.m. Ages 70+ = 75 mL/min/1.73 sq.m. Chronic Kidney Disease: Less than 60 mL/min/1.73 square meters End Stage Renal Disease: Less than 15 mL/min/1.73 square meters GFR/1.73 sq M.predicted among non-blacks MDRD (S/P/Bld) [Vol rate/Area] 56 ml/min/1.73sqm Invalid Interpretation Code AO Chemistry S Comment on above: Interpretive Data: GFR Population mean for , Non- Americans Ages 20-29 = 116 mL/min/1.73 sq.m. Ages 30-39 = 107 mL/min/1.73 sq.m. Ages 40-49 = 99 mL/min/1.73 sq.m. Ages 50-59 = 93 mL/min/1.73 sq.m. Ages 60-69 = 85 mL/min/1.73 sq.m. Ages 70+ = 75 mL/min/1.73 sq.m. Chronic Kidney Disease: Less than 60 mL/min/1.73 square meters End Stage Renal Disease: Less than 15 mL/min/1.73 square meters Glucose [Mass/Vol] 93 mg/dL Invalid Interpretation Code 70 - 105 mg/dL AO ADM SS Potassium [Moles/Vol] 4.1 mmol/L Invalid Interpretation Code 3.5 - 5.1 mmol/L AO ADM SS Sodium [Moles/Vol] 137 mmol/L Invalid Interpretation Code 136 - 145 mmol/L AO ADM SS Urea nitrogen [Mass/Vol] 15 mg/dL Invalid Interpretation Code 7 - 18 mg/dL AO ADM SS Urea nitrogen/Creatinine [Mass ratio] 14 ratio Invalid Interpretation Code 7 - 27 ratio AO ADM SS LABORATORYOrdered By: Yarelis Rao on 01-26-2023 S. pyogenes DNA JEREMY+probe Ql (Throat) Negative (01/26/23 3:35 AM) Invalid Interpretation Code Negative AO Auto Urine SS S. pyogenes DNA JEREMY+probe Ql (Throat) Negative for Streptococcus pyogenes by PCR. Negative test results do not rule out other possible infections besides those caused by Group A Streptococcus. False Negatives may be obtained in the presence of NYQUIL (0.5% V/V)The Jesús Group A Strep Assay is a real-time polymerase chain reaction (PCR) based qualitative in vitro diagnostic test for the direct detection of Streptococcus pyogenes (Group A Beta hemolytic Streptococcus) in throat swab specimens from patients with signs and symptoms of pharyngitis.The Jesús Group A Strep Assay can be used as an aid in the diagnosis of Group A Streptococcal pharyngitis. The assay is not intended to monitor treatment for Group A Streptococcus infections. Invalid Interpretation Code AO Auto Urine SS LABORATORYOrdered By: [employer] on 11-12-2022 Albumin BCP dye [Mass/Vol] 3.6 G/dL Invalid Interpretation Code 3.5 - 5.0 G/dL AO ADM SS Albumin/Globulin [Mass ratio] 1.0 {ratio} Invalid Interpretation Code 1.1 - 2.5 ratio AO ADM SS ALP [Catalytic activity/Vol] 68 U/L Invalid Interpretation Code 40 - 135 U/L AO ADM SS ALT With P-5'-P [Catalytic activity/Vol] 32 U/L Invalid Interpretation Code 14 - 59 U/L AO ADM SS AST With P-5'-P [Catalytic activity/Vol] 16 U/L Invalid Interpretation Code 10 - 40 U/L AO ADM SS Bilirubin [Mass/Vol] 0.2 mg/dL Invalid Interpretation Code 0.2 - 1.0 mg/dL AO ADM SS Calcium [Mass/Vol] 8.5 mg/dL Invalid Interpretation Code 8.4 - 10.2 mg/dL AO ADM SS Chloride [Moles/Vol] 104 mmol/L Invalid Interpretation Code 98 - 107 mmol/L AO ADM SS CO2 [Moles/Vol] 27 mmol/L Invalid Interpretation Code 22 - 29 mmol/L AO ADM SS Creatinine [Mass/Vol] 1.30 mg/dL Invalid Interpretation Code 0.55 - 1.02 mg/dL AO ADM SS Electrolyte Balance 8.0 mEq/L Invalid Interpretation Code 4.0 - 15.0 mEq/L AO ADM SS GFR 55 ml/min/1.73sqm Invalid Interpretation Code AO Chemistry S GFR Non- 46 ml/min/1.73sqm Invalid Interpretation Code AO Chemistry S Globulin 3.5 G/dL Invalid Interpretation Code AO ADM SS Glucose [Mass/Vol] 100 mg/dL Invalid Interpretation Code 70 - 105 mg/dL AO ADM SS Potassium [Moles/Vol] 4.6 mmol/L Invalid Interpretation Code 3.5 - 5.1 mmol/L AO ADM SS Protein [Mass/Vol] 7.1 G/dL Invalid Interpretation Code 6.4 - 8.2 G/dL AO ADM SS Sodium [Moles/Vol] 139 mmol/L Invalid Interpretation Code 136 - 145 mmol/L AO ADM SS Urea nitrogen [Mass/Vol] 19 mg/dL Invalid Interpretation Code 7 - 18 mg/dL AO ADM SS Urea nitrogen/Creatinine [Mass ratio] 15 ratio Invalid Interpretation Code 7 - 27 ratio AO ADM SS Vit. D 25-Hydroxy 39.2 ng/mL Invalid Interpretation Code AO ADM SS LABORATORYOrdered By: Maddy Clark on 11-12-2022 Basophil, Absolute 0.0 103/mcL Invalid Interpretation Code 0.0 - 0.2 10^3/mcL AO Workflow SS Basophils/100 WBC (Bld) 0.7 % Invalid Interpretation Code 0.0 - 2.5 % AO Workflow SS Cholesterol [Mass/Vol] 229 mg/dL Invalid Interpretation Code 0 - 200 mg/dL AO ADM SS Cholesterol in HDL [Mass/Vol] 47 mg/dL Invalid Interpretation Code 40 - 60 mg/dL AO ADM SS Cholesterol in LDL [Mass/Vol] 151 mg/dL Invalid Interpretation Code 0 - 130 mg/dL AO ADM SS Eosinophil, Absolute 0.1 103/mcL Invalid Interpretation Code 0.0 - 0.4 10^3/mcL AO Workflow SS Eosinophils/100 WBC (Bld) 2.3 % Invalid Interpretation Code 0.0 - 7.0 % AO Workflow SS Erythrocyte distribution width (RBC) [Ratio] 14.1 % Invalid Interpretation Code 11.5 - 14.5 % AO Workflow SS Hematocrit (Bld) [Volume fraction] 38.9 % Invalid Interpretation Code 37.0 - 47.0 % AO Workflow SS Hemoglobin (Bld) [Mass/Vol] 13.1 G/dL Invalid Interpretation Code 12.0 - 16.0 G/dL AO Workflow SS Lymphocyte, Absolute 1.7 103/mcL Invalid Interpretation Code 0.8 - 3.9 10^3/mcL AO Workflow SS Lymphocytes/100 WBC (Bld) 29.7 % Invalid Interpretation Code 10.0 - 50.0 % AO Workflow SS MCH (RBC) [Entitic mass] 29.4 pg Invalid Interpretation Code 27.0 - 31.2 pg AO Workflow SS MCHC 33.5 G/dL Invalid Interpretation Code 33.0 - 37.0 G/dL AO Workflow SS MCV (RBC) [Entitic vol] 87.8 fL Invalid Interpretation Code 80.0 - 94.0 fL AO Workflow SS Monocyte, Absolute 0.4 103/mcL Invalid Interpretation Code 0.2 - 1.0 10^3/mcL AO Workflow SS Monocytes/100 WBC (Bld) 7.6 % Invalid Interpretation Code 1.7 - 13.0 % AO Workflow SS Neutrophil, Absolute 3.3 103/mcL Invalid Interpretation Code 2.9 - 6.2 10^3/mcL AO Workflow SS Neutrophils/100 WBC (Bld) 59.7 % Invalid Interpretation Code 37.0 - 80.0 % AO Workflow SS Platelet mean volume (Bld) [Entitic vol] 7.0 fL Invalid Interpretation Code 7.4 - 10.4 fL AO Workflow SS Platelets (Bld) [#/Vol] 250 103/mcL Invalid Interpretation Code 130 - 400 10^3/mcL AO Workflow SS RBC (Bld) [#/Vol] 4.43 106/mcL Invalid Interpretation Code 4.20 - 5.40 10^6/mcL AO Workflow SS Triglyceride [Mass/Vol] 154 mg/dL Invalid Interpretation Code 0 - 150 mg/dL AO ADM SS WBC (Bld) [#/Vol] 5.6 103/mcL Invalid Interpretation Code 4.6 - 10.8 10^3/mcL AO Workflow SS CHEST PA/AP AND LATERALon CHEST PA/AP AND LATERAL CHEST PA/AP LATERAL Ordering Physician: Germaine Cavazos MD 08/04/2021 8:06 AM PA AND LATERAL CHEST RADIOGRAPHS Clinical Statement: Pneumonia Comparison: 07/22/2021 FINDINGS: The cardiomediastinal silhouette is within normal limits. There is no focal consolidation, vascular congestion or pleural fluid. No pneumothorax. IMPRESSION: No acute process. This report was electronically signed by Nena Mendoza MD 08/04/2021 8:33 AM Reported By: NENA MENDOZA M.D. Signed By: NENA MENDOZA M.D. [facility] CHEST PA/AP AND LATERALon CHEST PA/AP AND LATERAL EXAM TITLE: AP/PA AND LATERAL CHEST X RAY COMPARISON: None. CLINICAL INDICATION/HISTORY: COVID pneumonia. ENCOUNTER: Not applicable MQ: [id number] RESULT: Lines, tubes, and devices: None. Lungs and pleura: Small right pleural effusion with subsegmental atelectasis versus consolidation involving the inferior/posterior aspect of the right lower lobe. No discrete left-sided effusion. No pneumothorax. Pulmonary vascularity within normal limits. Cardiomediastinal silhouette: Unremarkable Other: Mild anterior wedge deformity T12 vertebral body. Otherwise, vertebral body heights are maintained. IMPRESSION: Small right-sided effusion with subsegmental atelectasis versus consolidation involving the inferior/posterior aspect of the right lower lobe. This report was electronically signed by Melissa Pimentel 07/22/2021 9:25 AM Reported By: MELISSA PIMENTEL MD Signed By: MELISSA PIMENTEL MD [facility] Vital Signs Date Time Vital Sign Value Performing Clinician Faci lity 01-26-2023 03:12-[address] Blood Pressure Cuff Size DR RAND BONILLA MD [facility] 01-26-2023 03:12-[address] RAND BONILLA MD [facility] 01-26-2023 03:12-[address] RAND BONILLA MD [facility] 01-26-2023 03:12-0400 Body height 162.[address] RAND BONILLA MD [facility] 01-26-2023 03:12-0400 Body temperature 99.5 [degF] DR RAND BONILLA MD [facility] 01-26-2023 03:12-0400 Body weight 104.[address] RAND BONILLA MD [facility] 01-26-2023 03:12-0400 Diastolic Blood Pressure Non-Invasive [address] RAND BONILLA MD [facility] 01-26-2023 03:12-0400 Heart rate 102 /min DR RAND BONILLA MD [facility] 01-26-2023 03:12-0400 Reason For Taking VItal Signs DR RAND BONILLA MD [facility] 01-26-2023 03:12-0400 Respiratory rate 18 /min DR RAND BONILLA MD [facility] 01-26-2023 03:12-0400 Systolic Blood Pressure Non-Invasive [address] RAND BONILLA MD [facility] Encounters Encounter Date Encounter Type Care Provider Facility Start: 03-05-2025 ambulatory Chad Chavarria Facility :[facility] Start: 03-04-2025 Encounter for other preprocedural examination Chad Chavarria [facility] Start: 01-27-2025 End: 01-27-2025 Patient encounter procedure Kassie QUINTEROS -[facility] Work Phone: Start: 01-27-2025 End: 01-27-[address] Royce Edge DO Work Phone: [facility] Work Phone: Start: 01-09-2025 End: 01-09-2025 ambulatory ROYCE EDGE [facility] Start: 01-09-2025 End: 01-09-[address] ROYCE EDGE DO [facility] Start: 12-16-2024 End: 12-20-2024 ambulatory MERRITT FAN Facility:A Start: 12-16-2024 End: 12-20-2024 Encounter for gynecological examination (general) (routine) without abnormal findings MERRITT FAN Facility:[facility] Start: 11-28-2024 End: 01-28-[address] ROYCE EDGE DO Facility:[facility] Start: 11-21-2024 End: 11-21-2024 Emergency department patient visit ROYCE EDGE [facility] Start: 11-12-2024 End: 11-12-2024 ambulatory ROYCE EDGE [facility] Start: 11-05-2024 End: 11-05-2024 ambulatory ROYCE EDGE [facility] Start: 08-20-2024 End: 08-24-2024 ambulatory ROYCE EDGE [facility] Start: 08-20-2024 End: 08-24-2024 Outreach Lab LENORA MANZANO MD [facility] Start: 08-19-2024 End: 08-19-2024 ambulatory ROYCE EDGE [facility] Start: 08-19-2024 End: 08-19-2024 Patient encounter procedure LENORA MANZANO MD [facility] Start: 08-01-2024 End: 08-01-2024 ambulatory GUERLINE PEDRO [employer] WRITER[employer]MALTER OPERATOR Facility:A Start: 08-01-2024 End: 08-01-2024 Patient encounter procedure GUERLINE PEDRO FEATURE WRITER-MALTER OPERATOR [facility] Start: 07-09-2024 End: 07-09-2024 ambulatory ROYCE EDGE [facility] Start: 07-09-2024 End: 07-09-[address] ROYCE EDGE DO [facility] Start: 07-03-2024 End: 07-07-[address] ROYCE EDGE DO [facility] Start: 07-03-2024 End: 07-07-2024 ambulatory ROYCE EDGE [facility] Start: 07-03-2024 End: 07-03-[address] ROYCE EDGE DO [facility] Start: 07-01-2024 End: 07-01-2024 ambulatory LENORA MANZANO MD [facility] Start: 07-01-2024 End: 07-01-2024 Patient encounter procedure LENORA MANZANO MD [facility] Start: 06-21-2024 End: 06-21-2024 ambulatory LENORA MANZANO MD [facility] Start: 06-21-2024 End: 06-21-2024 Patient encounter procedure LENORA MANZANO MD [facility] Start: 06-13-2024 End: 06-13-2024 ambulatory LENORA MANZANO MD [facility] Start: 06-13-2024 End: 06-13-2024 Patient encounter procedure LENORA MANZANO MD [facility] Start: 05-13-2024 End: 05-13-[address] ROYCE EDGE DO Facility:A Start: 04-13-2024 End: 04-13-[address] ROYCE EDGE DO Facility:B Start: 04-13-2024 End: 04-13-[address] ROYCE EDGE DO [facility] Start: 10-28-2023 End: 10-28-[address] ROYCE EDGE DO Facility:B Start: 10-28-2023 End: 10-28-[address] ROYCE EDGE DO [facility] Start: 10-18-2023 End: 10-18-2023 ambulatory BRISA DIA DC Facility:B Start: 10-18-2023 End: 10-18-2023 Patient encounter procedure BRISA DIA DC [facility] Start: 05-18-2023 End: 05-18-2023 ambulatory RYANNE TOSCANO APRN-MALTER OPERATOR Facility:A Start: 05-05-2023 End: 05-09-[address] ROYCE EDGE DO Facility:B Start: 04-26-2023 End: 04-26-[address] ROYCE EDGE DO Facility:B Start: 04-26-2023 End: 04-26-[address] ROYCE EDGE DO [facility] Start: 04-26-2023 End: 04-26-2023 Well adult monitoring check done DR ROYCE EDGE DO [facility] Start: 01-26-2023 End: 01-26-2023 Emergency department patient visit DR RAND BONILLA MD [facility] Start: 11-12-2022 End: 11-12-[address] ROYCE EDGE DO [facility] Start: 07-05-2022 End: 07-05-2022 Patient encounter procedure LUIS Flaherty PRINCE SABA [facility] Start: 08-04-2021 End: 08-04-2021 Subsequent hospital visit by physician Germaine Cavazos Work Phone: [facility] Comment on above: J18.9 Start: 07-22-2021 End: 07-22-2021 Subsequent hospital visit by physician [facility] Provider [facility] Comment on above: COVID PNU AND FLU PE Start: 07-12-2021 End: 07-12-2021 Emergency department patient visit MARISSA BONILLA MD [facility] Procedures Date Procedure Procedure Detail Performing Clinician Start: 09-05-1996 Left knee arthroscopy W JACQUIE BONILLA MD Arthroscopy of knee MARISSA BONILLA MD Immunizations Immunization Date Immunization Notes Care Provider [facility] 11-02-2015 diphtheria, tetanus toxoids and acellular pertussis vaccine DR ROYCE EDGE DO [facility] Payers Date Payer Category Payer Self-pay 2025 Unknown [id number] 2024 Private Health Insurance [id number] 2024 Unknown [id number] 2023 Unknown [id number] 2023 Unknown [id number] 2017 Unknown [id number] 1983 Unknown [id number] 2.16.8 40.1.878120.3.579.2. 1983 Unknown [id number] 2.16.8 40.1.633284.3.579.2. 1983 Unknown [id number] 2.16.8 40.1.169199.3.579.2. 1983 Unknown [id number] 2.16.8 40.1.244087.3.579.2. 1983 Unknown [id number] 2.16.8 40.1.328880.3.579.2. 1983 Unknown [id number] 2.16.8 40.1.698419.3.579.2. 1983 Unknown [id number] 2.16.8 40.1.489172.3.579.2. 1983 Unknown [id number] 2.16.8 40.1.381155.3.579.2. 1983 Unknown [id number] 2.16.8 40.1.897257.3.579.2. 1983 Unknown [id number] 2.16.8 40.1.211733.3.579.2. 1983 Unknown [id number] 2.16.8 40.1.861436.3.579.2. 1983 Unknown [id number] 2.16.8 40.1.945008.3.579.2. 1983 Unknown [id number] 2.16.8 40.1.869109.3.579.2. 1983 Unknown [id number] 2.16.8 40.1.802486.3.579.2. 1983 Unknown [id number] 2.16.8 40.1.693257.3.579.2. 1983 Unknown [id number] 2.16.8 40.1.114497.3.579.2.627 1983 Unknown [id number] 2.16.8 40.1.187100.3.579.2.627 1983 Unknown [id number] 2.16.8 40.1.422097.3.579.2.627 1983 Unknown [id number] 2.16.8 40.1.267267.3.579.2.627 1983 Unknown [id number] 2.16.8 40.1.285009.3.579.2.627 1983 Unknown [id number] 2.16.8 40.1.669076.3.579.2.627 1983 Unknown [id number] 2.16. 840.1.119475.3.579.2.627 1983 Unknown [id number] 2.16.8 40.1.967889.3.579.2.627 Unknown [id number] 2.16.8 40.1.499280.3.579.2.462 Unknown [id number] 2.16.8 40.1.398848.3.579.2.462 Social History Date Type Detail Facility Start: 11-03-2018 End: 01-24-2025 Never smoked tobacco (finding) [facility] Sex Assigned At [facility] Tobacco smoking status [facility] Tobacco smoking consumption unknown [facility] Start: 1985 Sex Assigned At Not on file [facility] Start: 05-05-2008 Sex Female (finding) [facility] Start: 1985 Sex Assigned At Female [facility] Functional Status Date Assessment Result Facility 01-26-2023 Functional Status Ambulating in kat, Ambulating in room, Awake, Bathroom privileges [facility] Mental Status Date Assessment Result Facility 01-26-2023 Mental Status Oriented x 4 [facility] Clinical Notes 07-05-2022 to 07-04-2024 RadiologyLaboratoryRadiologyRadiologyRadiologyRadiology Note Date & Type Note Facility 07-04-2024 Note . MICRO - Microbiology PROCEDURE: Urine Culture [*1] SOURCE: Urine, Clean Catch BODY SITE: COLLECTED DATE/TIME: 07/03/2024 17:00 EST RECEIVED DATE/TIME: 07/03/2024 19:33 EST START DATE/TIME: 07/03/2024 19:33 EST FREE TEXT SOURCE: FINAL REPORTS Final Report [] Verified Date/Time/Personnel: 07/04/2024 14:25 EST <10,000 cfu/ml. No Significant growth. Sensitivity not indicated. Performing Locations *1: This test was performed at: [facility], [address] [place] [address], [facility] , [facility] 06-21-2024 Note ORIGINAL EXAMINATION: RENAL ULTRASOUND TECHNIQUE: Real-time grayscale images of the bilateral kidneys and urinary bladder were obtained with a linear array transducer in transverse and longitudinal dimensions. COMPARISON: 11/24/2022 HISTORY: ORDERING SYSTEM PROVIDED HISTORY: Reason for Exam: CKD 3A All images are recorded and archived. FINDINGS: Right kidney: Length: 8.7 x 4.5 x 4.8 cm Echogenicity: Normal Hydronephrosis: None Calculus: None Mass: None Left kidney: Length: 10.0 x 4.4 x 5.2 cm Echogenicity: Normal Hydronephrosis: None Calculus: Multiple echogenic subcentimeter foci are seen within the left kidney, which may represent small non-shadowing calculi. Are milk of calcium cysts. Mass: None Urinary bladder: Normal sonographic appearance of the bladder. There is a prevoid volume of 138.5 mL, with near complete emptying with voiding. The bladder wall measures 0.3 cm. IMPRESSION: Several subcentimeter hyperechogenic foci which may represent small nonshadowing calculi. No evidence of hydronephrosis. I have personally reviewed the images of this examination and agree with the resident's findings and interpretation. Interpreted by: Maximino Thornton DO Preliminary Report By: Meche Borden Electronically signed By Maximino Thornton DO Dictated Date: 06/21/2024 2:06:19 PM Prelim Date: 06/21/2024 3:26:11 PM Sign Date: 06/21/2024 3:26:11 PM Ordering Provider: LENORA MANZANO [facility] 10-18-2023 Note ORIGINAL EXAMINATION: MRI OF THE LUMBAR SPINE WITHOUT CONTRAST, 10/18/2023 2:39 pm TECHNIQUE: Multiplanar multisequence MRI of the lumbar spine was performed without the administration of intravenous contrast. COMPARISON: None. HISTORY: ORDERING SYSTEM PROVIDED HISTORY: Reason for Exam: LUMBAR SPONDYLOSIS Pain low back radiating down both legs. For the purposes of this dictation, there are 5 lumbar type vertebral bodies with the most caudal fully segmented body denoted as L5. FINDINGS: Alignment is maintained. Vertebral body heights are preserved. There is disc desiccation and mild disc height loss from L2-3 through L5-S1. Type 1 Modic changes seen at L3-4 and L4-5. Scattered hemangiomas are identified, most prominent in L1. The conus terminates at a normal level and the nerve roots of the cauda equina appear unremarkable. There is mild edema surrounding the left L4-5 facet joint which is favored reactive. L1-L2: No canal or neural foraminal stenosis. L2-L3: High-intensity zone of the disc without canal or neural foraminal stenosis. L3-L4: Mild generalized disc bulge. Facet arthropathy with a left facet joint effusion. Ligamentum flavum hypertrophy. No canal stenosis. Minimal left and mild right neural foraminal stenosis. Disc/osteophyte contacts the exited right L3 nerve root in the extraforaminal zone. L4-L5: Mild generalized disc bulge. Facet arthropathy and ligamentum flavum hypertrophy without canal stenosis. Mild left and no right neural foraminal stenosis. L5-S1: Generalized disc bulge with a high-intensity zone. Facet arthropathy. The canal has largely tapered. No superimposed degenerative canal stenosis. Minimal left and no significant right neural foraminal stenosis. IMPRESSION: Mild multilevel degenerative changes as above. Interpreted by: Jelena Ricci MD Preliminary Report By: Jelena Ricci MD Electronically signed By Jelena Ricci MD Dictated Date: 10/18/2023 2:44:56 PM Prelim Date: 10/18/2023 2:50:35 PM Sign Date: 10/18/2023 2:50:35 PM Ordering Provider: BRISA DIA [facility] 05-07-2023 Note . MICRO - Microbiology PROCEDURE: Throat Culture [*1] SOURCE: Tonsils BODY SITE: COLLECTED DATE/TIME: 05/05/2023 17:03 EDT RECEIVED DATE/TIME: 05/05/2023 19:40 EDT START DATE/TIME: 05/05/2023 19:40 EDT FREE TEXT SOURCE: FINAL REPORTS Final Report [] Verified Date/Time/Personnel: 05/07/2023 07:26 EDT Normal throat tawnya present Sensitivity Testing: Not Indicated PRELIMINARY REPORTS Preliminary Report [] Verified Date/Time/Personnel: 05/06/2023 08:51 EDT Negative for upper respiratory pathogens at 24 hours. Performing Locations *1: This test was performed at: [facility], [address] [place] [address], [id number] , [facility] 01-26-2023 Hospital Discharge instructions Patient Education 01/26/2023 03:24:52 Pharyngitis, Report Pending Pharyngitis (Sore Throat), Report Pending Pharyngitis (sore throat) is often due to a virus. It can also be caused by streptococcus (strep), bacteria. This is often called strep throat. Both viral and strep infections can cause throat pain that is worse when swallowing, aching all over, headache, and fever. Both types of infections are contagious. They may be spread by coughing, kissing, or touching others after touching your mouth or nose. A test has been done to find out if you or your child have strep throat. Call this facility or your healthcare provider if you were not given your test results. If the test is positive for strep infection, you will need to take antibiotic medicines. A prescription can be called into your pharmacy at that time. If the test is negative, you probably have a viral pharyngitis. This does not need to be treated with antibiotics. Until you receive the results of the strep test, you should stay home from work. If your child is being tested, he or she should stay home from school. Home care Rest at home. Drink plenty of fluids so you won't get dehydrated. If the test is positive for strep, you or your child should not go to work or school for the first 2 days of taking the antibiotics. After this time, you or your child will not be contagious. You or your child can then return to work or school when feeling better. Use the antibiotic medicine for the full 10 days. Do not stop the medicine even if you or your child feel better. This is very important to make sure the infection is fully treated. It is also important to prevent medicine-resistant germs from growing. If you or your child were given an antibiotic shot, no more antibiotics are needed. Use throat lozenges or numbing throat sprays to help reduce pain. Gargling with warm salt water will also help reduce throat pain. Dissolve 1/2 teaspoon of salt in 1 glass of warm water. Children can sip on juice or a popsicle. Children 5 years and older can also suck on a lollipop or hard candy. Don't eat salty or spicy foods or give them to your child. These can irritate the throat. Other medicine for a child: You can give your child acetaminophen for fever, fussiness, or discomfort. In babies over 6 months of age, you may use ibuprofen instead of acetaminophen. If your child has chronic liver or kidney disease or ever had a stomach ulcer or GI bleeding, talk with your child s healthcare provider before giving these medicines. Aspirin should never be used by any child under 18 years of age who has a fever. It may cause severe liver damage. Other medicine for an adult: You may use acetaminophen or ibuprofen to control pain or fever, unless another medicine was prescribed for this. If you have chronic liver or kidney disease or ever had a stomach ulcer or GI bleeding, talk with your healthcare provider before using these medicines. Follow-up care Follow up with your healthcare provider or our staff if you or your child don't get better over the next week. When to seek medical advice Call your healthcare provider right away if any of these occur: Fever as directed by your healthcare provider. For children, seek care if: oYour child is of any age and has repeated fevers above 104 F (40 C). oYour child is younger than 2 years of age and has a fever of 100.4 F (38 C) for more than 1 day. oYour child is 2 years old or older and has a fever of 100.4 F (38 C) for more than 3 days. New or worsening ear pain, sinus pain, or headache Painful lumps in the back of neck Stiff neck Lymph nodes are getting larger Can t swallow liquids, a lot of drooling, or can t open mouth wide due to throat pain Signs of dehydration, such as very dark urine or no urine, sunken eyes, dizziness Trouble breathing or noisy breathing Muffled voice New rash Other symptoms getting worse Prevention Here are steps you can take to help prevent an infection: Keep good hand washing habits. Don t have close contact with people who have sore throats, colds, or other upper respiratory infections. Don t smoke, and stay away from secondhand smoke. Stay up to date with of your vaccines. 1784-6472 [employer]. [address] [place] [address], [place] [address]. All rights reserved. This information is not intended as a substitute for professional medical care. Always follow your healthcare professional's instructions. 01/26/2023 03:24:44 Earache Without Infection (Adult) Earache, No Infection (Adult) Earaches can happen without an infection. This occurs when air and fluid build up behind the eardrum causing a feeling of fullness and discomfort and reduced hearing. This is called otitis media with effusion (OME) or serous otitis media. It means there is fluid in the middle ear. It is not the same as acute otitis media, which is typically from infection. OME can happen when you have a cold if congestion blocks the passage that drains the middle ear. This passage is called the eustachian tube. OME may also occur with nasal allergies or after a bacterial middle ear infection. The pain or discomfort may come and go. You may hear clicking or popping sounds when you chew or swallow. You may feel that your balance is off. Or you may hear ringing in the ear. It often takes from several weeks up to 3 months for the fluid to clear on its own. Oral pain relievers and ear drops help if there is pain. Decongestants and antihistamines sometimes help. Antibiotics don't help since there is no infection. Your doctor may prescribe a nasal spray to help reduce swelling in the nose and eustachian tube. This can allow the ear to drain. If your OME doesn't improve after 3 months, surgery may be used to drain the fluid and insert a small tube in the eardrum to allow continued drainage. Because the middle ear fluid can become infected, it is important to watch for signs of an ear infection which may develop later. These signs include increased ear pain, fever, or drainage from the ear. Home care The following guidelines will help you care for yourself at home: You may use sbcg-oyk-qmctuqr medicine as directed to control pain, unless another medicine was prescribed. If you have chronic liver or kidney disease or ever had a stomach ulcer or GI bleeding, talk with your doctor before using these medicines. Aspirin should never be used in anyone under 18 years of age who is ill with a fever. It may cause severe liver damage. You may use faau-jfv-pitfuny decongestants such as phenylephrine or pseudoephedrine. But they are not always helpful. Don't use nasal spray decongestants more than 3 days. Longer use can make congestion worse. Prescription nasal sprays from your doctor don't typically have those restrictions. Antihistamines may help if you are also having allergy symptoms. You may use medicines such as guaifenesin to thin mucus and promote drainage. Follow-up care Follow up with your healthcare provider or as advised if you are not feeling better after 3 days. When to seek medical advice Call your healthcare provider right away if any of the following occur: Your ear pain gets worse or does not start to improve Fever of 100.4 F (38 C) or higher, or as directed by your healthcare provider Fluid or blood draining from the ear Headache or sinus pain Stiff neck Unusual drowsiness or confusion [id number] [employer]. [address] [place] [address]. All rights reserved. This information is not intended as a substitute for professional medical care. Always follow your healthcare professional's instructions. Follow Up Care 01/26/2023 03:10:14 With:your ENT doctor Address: When:2-4 days [facility] 01-26-2023 Note Discharge Instructions Thank you for allowing [facility] to assist you with your healthcare needs. The following is important discharge information regarding your hospital visit. Diagnosis from Today's Visit Ear ache Sore throat - Adult What to Do Next Instructions from Your Care Team No qualifying data available. Post Acute Orders No qualifying data available. You Need to Schedule the Following Appointments Follow Up with your ENT doctor When Within 2-4 days Where: Allergies bacitracin (Hot, Tender, Redness) Medications Please ask your primary doctor or pharmacist before taking any other medication not listed, including over the counter drugs, herbal medications, vitamins and or supplements as they may interact with your home medications. What How Much When Instructions Last Dose Unchanged cholecalciferol (Vitamin D3 50 mcg (2000 intl units) oral capsule) 1 cap by mouth Once a day Unchanged cholecalciferol (Vitamin D3) 2,000 unit(s) by mouth Every day Unchanged Misc Medication 1 Every day luis enrique superfruit Unchanged Misc Medication 1 by mouth Every day calcium complete Unchanged Misc Medication 1 Every day luis enrique apple cider Unchanged Misc Medication 1 by mouth Every day tristen out Unchanged multivitamin with minerals (Alive Women's Energy) by mouth Once a day Unchanged SUMAtriptan (SUMAtriptan 50 mg oral tablet) 1 tab(s) by mouth take 1 tablet by mouth if needed AT ONSET OF HEADACHE may repeat ... (REFER TO PRESCRIPTION NOTES). Please take this list to your next doctor s visit. Bring all medications you take, including over the counter medications, herbals and other supplements with you to your doctor s visit. Patients and families are reminded to discard old lists and to update any records with all medication providers or retail pharmacies. Education Materials Pharyngitis (Sore Throat), Report Pending Pharyngitis (sore throat) is often due to a virus. It can also be caused by streptococcus (strep), bacteria. This is often called strep throat. Both viral and strep infections can cause throat pain that is worse when swallowing, aching all over, headache, and fever. Both types of infections are contagious. They may be spread by coughing, kissing, or touching others after touching your mouth or nose. A test has been done to find out if you or your child have strep throat. Call this facility or your healthcare provider if you were not given your test results. If the test is positive for strep infection, you will need to take antibiotic medicines. A prescription can be called into your pharmacy at that time. If the test is negative, you probably have a viral pharyngitis. This does not need to be treated with antibiotics. Until you receive the results of the strep test, you should stay home from work. If your child is being tested, he or she should stay home from school. Home care Rest at home. Drink plenty of fluids so you won't get dehydrated. If the test is positive for strep, you or your child should not go to work or school for the first 2 days of taking the antibiotics. After this time, you or your child will not be contagious. You or your child can then return to work or school when feeling better. Use the antibiotic medicine for the full 10 days. Do not stop the medicine even if you or your child feel better. This is very important to make sure the infection is fully treated. It is also important to prevent medicine-resistant germs from growing. If you or your child were given an antibiotic shot, no more antibiotics are needed. Use throat lozenges or numbing throat sprays to help reduce pain. Gargling with warm salt water will also help reduce throat pain. Dissolve 1/2 teaspoon of salt in 1 glass of warm water. Children can sip on juice or a popsicle. Children 5 years and older can also suck on a lollipop or hard candy. Don't eat salty or spicy foods or give them to your child. These can irritate the throat. Other medicine for a child: You can give your child acetaminophen for fever, fussiness, or discomfort. In babies over 6 months of age, you may use ibuprofen instead of acetaminophen. If your child has chronic liver or kidney disease or ever had a stomach ulcer or GI bleeding, talk with your child s healthcare provider before giving these medicines. Aspirin should never be used by any child under 18 years of age who has a fever. It may cause severe liver damage. Other medicine for an adult: You may use acetaminophen or ibuprofen to control pain or fever, unless another medicine was prescribed for this. If you have chronic liver or kidney disease or ever had a stomach ulcer or GI bleeding, talk with your healthcare provider before using these medicines. Follow-up care Follow up with your healthcare provider or our staff if you or your child don't get better over the next week. When to seek medical advice Call your healthcare provider right away if any of these occur: Fever as directed by your healthcare provider. For children, seek care if: oYour child is of any age and has repeated fevers above 104 F (40 C). oYour child is younger than 2 years of age and has a fever of 100.4 F (38 C) for more than 1 day. oYour child is 2 years old or older and has a fever of 100.4 F (38 C) for more than 3 days. New or worsening ear pain, sinus pain, or headache Painful lumps in the back of neck Stiff neck Lymph nodes are getting larger Can t swallow liquids, a lot of drooling, or can t open mouth wide due to throat pain Signs of dehydration, such as very dark urine or no urine, sunken eyes, dizziness Trouble breathing or noisy breathing Muffled voice New rash Other symptoms getting worse Prevention Here are steps you can take to help prevent an infection: Keep good hand washing habits. Don t have close contact with people who have sore throats, colds, or other upper respiratory infections. Don t smoke, and stay away from secondhand smoke. Stay up to date with of your vaccines. 8475-0666 [employer]. [address] [place] [address]. All rights reserved. This information is not intended as a substitute for professional medical care. Always follow your healthcare professional's instructions. Earache, No Infection (Adult) Earaches can happen without an infection. This occurs when air and fluid build up behind the eardrum causing a feeling of fullness and discomfort and reduced hearing. This is called otitis media with effusion (OME) or serous otitis media. It means there is fluid in the middle ear. It is not the same as acute otitis media, which is typically from infection. OME can happen when you have a cold if congestion blocks the passage that drains the middle ear. This passage is called the eustachian tube. OME may also occur with nasal allergies or after a bacterial middle ear infection. The pain or discomfort may come and go. You may hear clicking or popping sounds when you chew or swallow. You may feel that your balance is off. Or you may hear ringing in the ear. It often takes from several weeks up to 3 months for the fluid to clear on its own. Oral pain relievers and ear drops help if there is pain. Decongestants and antihistamines sometimes help. Antibiotics don't help since there is no infection. Your doctor may prescribe a nasal spray to help reduce swelling in the nose and eustachian tube. This can allow the ear to drain. If your OME doesn't improve after 3 months, surgery may be used to drain the fluid and insert a small tube in the eardrum to allow continued drainage. Because the middle ear fluid can become infected, it is important to watch for signs of an ear infection which may develop later. These signs include increased ear pain, fever, or drainage from the ear. Home care The following guidelines will help you care for yourself at home: You may use blng-qdl-ssxkoqk medicine as directed to control pain, unless another medicine was prescribed. If you have chronic liver or kidney disease or ever had a stomach ulcer or GI bleeding, talk with your doctor before using these medicines. Aspirin should never be used in anyone under 18 years of age who is ill with a fever. It may cause severe liver damage. You may use ipcy-osq-ewrizno decongestants such as phenylephrine or pseudoephedrine. But they are not always helpful. Don't use nasal spray decongestants more than 3 days. Longer use can make congestion worse. Prescription nasal sprays from your doctor don't typically have those restrictions. Antihistamines may help if you are also having allergy symptoms. You may use medicines such as guaifenesin to thin mucus and promote drainage. Follow-up care Follow up with your healthcare provider or as advised if you are not feeling better after 3 days. When to seek medical advice Call your healthcare provider right away if any of the following occur: Your ear pain gets worse or does not start to improve Fever of 100.4 F (38 C) or higher, or as directed by your healthcare provider Fluid or blood draining from the ear Headache or sinus pain Stiff neck Unusual drowsiness or confusion [id number] [employer]. [address] [place], [place] [address]. All rights reserved. This information is not intended as a substitute for professional medical care. Always follow your healthcare professional's instructions. Additional Information VACCINATE! IT SAVES LIVES! Members of the community who have not yet received the COVID-19 vaccine and would like to receive it can visit one of [facility] vaccine clinics. There are many vaccine clinic locations within the [facility]. For locations and available times, please visit [email or web address] It is important to note that some COVID mobile vaccine clinics are held outdoors and may be canceled in rainy or stormy conditions. To learn more about pediatric vaccinations (ages 5-11), we invite you to visit the [facility] webpage. [email or web address] To learn more about the COVID-19 vaccine, we invite you to visit the CDC website for a list of frequently asked questions. https://www.cdc.gov/coronavirus/2 019-ncov/vaccines/faq.html [facility] Patient Portal Access Instructions: Stay connected with your healthcare team and access your personal medical information anytime with the [facility] Patient Portal. If you would like a full copy of your medical records please contact the [facility] Medical Records Department Monday through Monday between 8a.m. and 4:30p.m. Please follow the directions below to access the portal: 1.Access the email account you provided upon registration to the [facility].2.Look for an invitation email from [facility].3.Open the email and access the invitation link: Accept Invitation to [facility]4.Fill in the required chavez to create your account. Sign into [email or web address] with your username and password that you created in the above steps to stay up to date. You can then view a summary of results, a summary of your visits, and the ability to download your summaries to your computer or send the information securely to a physician. Remember that your healthcare information is confidential, so carefully consider who you will allow to register on the [facility] Patient Portal for access to your information. You can also access the [facility] Patient Portal on the [employer]. Simply click on "Health Records" under "Health Data" and then click on the [facility] logo. HOW TO SAFELY DISPOSE OF PRESCRIPTION MEDICATIONS Please use one of the following methods to safely dispose of your unused medications. 1.Use a drug disposal kit: the drug disposal pouch allows you to safely discard your old and unused drugs. Ask your nurse to give you one when you are discharged.2.Visit a local take-back location: Many local pharmacies and police departments have programs that collect old and unwanted prescription drugs. Call your local pharmacy or go to http://jacob/4J7So1y to find one close to you.3.Make use of household items: Use cat litter or old coffee grounds to dispose medications if other options are not available. Mix your drugs with these household products, seal them in an airtight container and throw it into the garbage. Call [facility]: [phone] to be sure your drugs can be disposed of in this way. Some medicines may require a different approach.4.Never flush your medications down the toilet. IF YOU HAVE BEEN PRESCRIBED AN OPIOIDS FOR PAIN If you have been prescribed an opioid (such as hydrocodone, oxycodone or morphine), it is critical to understand the possible side effects and risks of opioid pain medications. Even when taken as directed, opioids can have several side effects including: Tolerance, meaning you might need to take more of a medication for the same pain relief. Nausea, vomiting and/or constipation. Sleepiness, dizziness, dry mouth, confusion, depression or itching. Physical dependence, meaning you have withdrawal symptoms when a medication is stopped ? this can develop within a few days. KNOW YOUR RESPONSIBILITIES It is important to know exactly how much and how often to take the opioid pain medications you are prescribed. Never take opioids in higher amounts or more often than prescribed. Do not combine opioids with alcohol or other drugs that cause drowsiness, such as benzodiazepines, also known as benzos, including diazepam and alprazolam, muscle relaxants or sleep aids. Never sell or share prescription opioids. This is illegal. Store opioids in a secure place and out of reach of others (including children, family, friends and visitors). The last page(s) of this document has been signed and retained as a CHART COPY Signatures Patient Education Materials Pharyngitis, Report Pending Earache Without Infection (Adult) Medication Leaflets My discharge plan and instructions have been reviewed and explained to me and IJOSE SAMANTHA J understand my current condition and have read and understand these discharge instructions. I have received a written copy of the plan/instructions. If I have questions, I am aware that I should contact my doctor. 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 Multiplanar reformatted images are provided for review. Automated exposure control, iterative reconstruction, and/or weight based adjustment of the mA/kV was utilized to reduce the radiation dose to as low as reasonably achievable. COMPARISON: No recent radiographs for comparison. HISTORY ORDERING SYSTEM PROVIDED HISTORY: Reason for Exam: S93.402A SPRAIN OF UNSPECIFIED LIGAMENT OF LEFT ANKLE, INIT ENCNTR Technologist sheet notes left ankle pain status post fall 1 week prior to presentation. Possible talus fracture seen on x-ray. FINDINGS: Bones: There is an acute comminuted anterior calcaneus process fracture (best appreciated on series 4, image 221/320 as well as series 601, image 14/47). The fracture extends towards the calcaneocuboid joint facet. Chronic appearing posttraumatic ossicles noted along the medial side of the calcaneus.. Normal anatomic variant type 1 navicular. Other incidental accessory ossicles are noted in the foot. Calcaneal enthesopathy. Soft Tissue: Prominent dorsal and lateral soft tissue swelling is noted. Joint: No significant degenerative changes. No osseous erosions. IMPRESSION: Comminuted anterior calcaneal process fracture. The fracture extends towards the calcaneocuboid joint.. Corticated posttraumatic ossicles noted along the medial border of the calcaneus.. I have personally reviewed the images of this examination, agree with resident's findings and interpretation. Interpreted by: Maximino Salmon MD Preliminary Report By: Delmar Valle Electronically signed By Maximino Salmon MD Dictated Date: 07/05/2022 2:47:38 PM Prelim Date: 07/05/2022 4:38:30 PM Sign Date: 07/05/2022 4:38:30 PM Ordering Provider: [facility] 07-05-2022 Note ORIGINAL EXAMINATION: CT OF THE LEFT ANKLE WITHOUT CONTRAST 07/05/2022 1:34 pm TECHNIQUE: CT of the left ankle was performed without the administration of intravenous contrast. Multiplanar reformatted images are provided for review. Automated exposure control, iterative reconstruction, and/or weight based adjustment of the mA/kV was utilized to reduce the radiation dose to as low as reasonably achievable. COMPARISON: No recent radiographs for comparison. HISTORY ORDERING SYSTEM PROVIDED HISTORY: Reason for Exam: S93.402A SPRAIN OF UNSPECIFIED LIGAMENT OF LEFT ANKLE, INIT ENCNTR Technologist sheet notes left ankle pain status post fall 1 week prior to presentation. Possible talus fracture seen on x-ray. FINDINGS: Bones: There is an acute comminuted anterior calcaneus process fracture (best appreciated on series 4, image 221/320 as well as series 601, image 14/47). The fracture extends towards the calcaneocuboid joint facet. Chronic appearing posttraumatic ossicles noted along the medial side of the calcaneus.. Normal anatomic variant type 1 navicular. Other incidental accessory ossicles are noted in the foot. Calcaneal enthesopathy. Soft Tissue: Prominent dorsal and lateral soft tissue swelling is noted. Joint: No significant degenerative changes. No osseous erosions. IMPRESSION: Comminuted anterior calcaneal process fracture. The fracture extends towards the calcaneocuboid joint.. Corticated posttraumatic ossicles noted along the medial border of the calcaneus.. I have personally reviewed the images of this examination, agree with resident's findings and interpretation. Interpreted by: Maximino Salmon MD Preliminary Report By: Delmar Valle Electronically signed By Maximino Salmon MD Dictated Date: 07/05/2022 2:47:38 PM Prelim Date: 07/05/2022 4:38:30 PM Sign Date: 07/05/2022 4:38:30 PM Ordering Provider: [facility] Evaluation + Plan note Future Appointments Appointment Date:07/26/2021 09:30:00 AM Scheduled Provider: Location:[facility] Appointment Type:CV Office Procedure Holter Monitor Appointment Date:08/23/2021 10:30:00 AM Scheduled Provider: Location[facility] Appointment Type:[facility] Evaluation + Plan note Future Appointments Appointment Date:08/22/2022 10:00:00 AM Scheduled Provider: Location:[facility] Appointment Type:CV [facility] Evaluation + Plan note Future Appointments Appointment Date:11/15/2022 04:00:00 PM Scheduled Provider: Location:[place] Appointment Type:US Thyroid Appointment Date:12/23/2022 02:30:00 PM Scheduled Provider:ROYCE EDGE DO Location:[facility] Appointment Type: Wellness Annual Future Scheduled TestsUS Thyroid 11/15/22 [facility] Evaluation + Plan note Future Appointments Appointment Date:05/05/2023 02:00:00 PM Scheduled Provider:ROYCE EDGE DO Location:[facility] Appointment Type: OV Future Scheduled TestsBasic Metabolic Panel 12/23/22 [facility] Evaluation + Plan note Future Appointments Appointment Date:05/05/2023 02:00:00 PM Scheduled Provider:ROYCE EDGE DO Location:[facility] Appointment Type:[facility] Evaluation + Plan note Future Appointments Appointment Date:11/03/2023 01:30:00 PM Scheduled Provider:ROYCE EDGE DO Location:[facility] Appointment Type:[facility] Evaluation + Plan note Future Appointments Appointment Date:11/03/2023 01:30:00 PM Scheduled Provider:ROYCE EDGE DO Location:[facility] Appointment Type:[facility] Evaluation + Plan note Future Appointments Appointment Date:05/01/2024 04:00:00 PM Scheduled Provider:ROYCE EDGE DO Location:[facility] Appointment Type:[facility] Evaluation + Plan note Future Appointments Appointment Date:11/05/2024 01:30:00 PM Scheduled Provider:ROYCE EDGE DO Location:[facility] Appointment Type: Wellness Annual Diagnostic Tests PendingANA by IFA Screen 06/13/24 [facility] Evaluation + Plan note Future Appointments Appointment Date:11/05/2024 01:30:00 PM Scheduled Provider:ROYCE EDGE DO Location:[facility] Appointment Type:[facility] Evaluation + Plan note Future Appointments Appointment Date:07/17/2024 02:00:00 PM Scheduled Provider:ROYCE EDGE DO Location:[facility] Appointment Type:PC OV Appointment Date:11/05/2024 01:30:00 PM Scheduled Provider:ROYCE EDGE DO Location:[facility] Appointment Type:[facility] Evaluation + Plan note Future Appointments Appointment Date:07/17/2024 02:00:00 PM Scheduled Provider:ROYCE EDGE DO Location:[facility] Appointment Type:PC OV Appointment Date:11/05/2024 01:30:00 PM Scheduled Provider:ROYCE EDGE DO Location:[facility] Appointment Type: Wellness Annual Future Scheduled TestsCT Abd/Pelvis w/ IV Contrast Only 07/05/24 [facility] Evaluation + Plan note Future Appointments Appointment Date:07/17/2024 02:00:00 PM Scheduled Provider:ROYCE EDGE DO Location:[facility] Appointment Type:PC OV Appointment Date:11/05/2024 01:30:00 PM Scheduled Provider:ROYCE EDGE DO Location:[facility] Appointment Type: Wellness Annual Future Scheduled TestsCT Abdomen and Pelvis w/o contrast 07/09/24 [facility] Evaluation + Plan note Future Appointments Appointment Date:08/15/2024 01:30:00 PM Scheduled Provider:ROYCE EDGE DO Location:[facility] Appointment Type:PC OV Appointment Date:11/05/2024 01:30:00 PM Scheduled Provider:ROYCE EDGE DO Location:[facility] Appointment Type:PC Wellness Annual Future Scheduled TestsCT Abdomen and Pelvis w/o contrast 07/09/24 [facility] Evaluation + Plan note Future Appointments Appointment Date:11/05/2024 01:30:00 PM Scheduled Provider:ROYCE EDGE DO Location:[facility] Appointment Type:PC Wellness Annual Future Scheduled TestsCT Abdomen and Pelvis w/o contrast 07/09/24 [facility] Evaluation + Plan note Future Appointments Appointment Date:01/14/2025 09:00:00 AM Scheduled Provider: Location:[facility] Appointment Type:OT Treatment Appointment Date:01/28/2025 08:15:00 AM Scheduled Provider: Location:[facility] Appointment Type:OT Treatment Appointment Date:01/28/2025 09:30:00 AM Scheduled Provider:ROYCE EDGE DO Location:[facility] Appointment Type:PC OV Appointment Date:02/04/2025 09:00:00 AM Scheduled Provider: Location:[facility] Appointment Type:OT Treatment Diagnostic Tests PendingCalprotectin 01/09/25 [facility] Evaluation note No assessment inform ation available [place] [employer] Work Phone: Hospital course Narrative No data available for this section [facility] Hospital Discharge instructions No data available for this section [facility] Progress note No data available for this section [facility] Reason for referral (narrative) No reason for referral information available [facility] Work Phone: Summary Purpose Family History No Family History Records Found Relationship Condition Age at Onset Recorded Date/T jess father Hypertension Unknown Hyperlipidemia Unknown Advance Directives No Advanced Directives Records FoundNo Advanced Directives Records FoundNo Advanced Directives Records FoundNo Advanced Directives Records FoundNo Advanced Directives Records FoundNo Advanced Directives Records Found Chief Complaint and Reason for Visit Chief Complaint Admit Date DIVERTICULITIS January 27, 2025 8:52 am Additional Source Comments Source Comments (unrecognize d section and content) In the event this informatio n is protected by the Federal Confidentiality of Alcohol and Drug Abuse Patient Records regulations: The Federal rules restrict any use of the information to criminally investigate or prosecute any alcohol or drug abuse patient.[facility] the event this information is protected by the Federal Confidentiality of Alcohol and Drug Abuse Patient Records regulations: The Federal rules restrict any use of the information to criminally investigate or prosecute any alcohol or drug abuse patient.[facility] INFORMATION SOURCE (unrecogn ized section and content) DATE CREATED AUTHOR 08/12/2021 [facility] unique [place] DATE CREATED AUTHOR AUTHOR'S ORGANIZ ATION 04/14/2024 [facility] ([place]) DATE CREATED AUTHOR AUTHOR'S ORGANIZ ATION 05/26/2024 [facility] DATE CREATED AUTHOR AUTHOR'S ORGANIZ ATION 01/11/2025 [facility] DATE CREATED AUTHOR AUTHOR'S ORGANIZ ATION 02/07/2025 [facility] DATE CREATED AUTHOR AUTHOR'S ORGANIZ ATION 03/04/2025 [facility] Care Team (unrecognized sect ion and content) Care Team Personnel Name: GERMAINE CAVAZOS MD Position: AH Physician Member Role: Primary Care Physician Address: Address: [address] [place] [address]. [facility] [place] [address]- Care Team Related Persons Name: SAHIL GARCIA Address: Home [address] [place] [id number] [place] Name: SAHIL GARCIA Address: [facility] Address: [address] [place], [place] [id number] Patient Care team informatio n (unrecognized section and content) Team Status: Active Member Role Status Dates Dr. Royce Edge DO Primary Care Provider Active Team Status: Inactive Member Role Status Dates Dr. Royce Edge DO Primary Care Provider Active Start: January 27, 2025 End: January 27, 2025 Dr. Royce Edge DO Referring Provider Active St art: January 27, 2025 End: January 27, 2025 NELI Coyle Attending Provider Active S tart: January 27, 2025 End: January 27, 2025 Goals (unrecognized section and content) Goals may be documented in a n alternate section FOR RECORDS PERTAINING TO PATIENTS WHO ARE OR HAVE BEEN ENROLLED IN A CHEMICAL DEPENDENCY/SUBSTANCEABUSE PROGRAM, SOME INFORMATION MAY BE OMITTED. This clinical summary was aggregated from multiple sources. Caution should be exercised in using it in the provision of clinical care. This summary normalizes information from multiple sources, and as a consequence, information in this document may materially change the coding, format and clinical context of patient data. In addition, data may be omitted in some cases. CLINICAL DECISIONS SHOULD BE BASED ON THE PRIMARY CLINICAL RECORDS. [employer] provides no warranty or guarantee of the accuracy or completeness of information in this document.
[2025-03-05 06:04] LABS: Internal QC Validated? YES +Cl - CLEAR BKGD; Pregnancy, Urine Negative Negative
[2025-03-05 06:05] LABS: Record Kit Lot#,Urine Preg 0000962302
[2025-03-05] MEDS: Lactated Ringers 1,000 ML 15 ML IV (06:14)
--- NOTE | 2025-03-05 06:20 | PCM.PRE.AN2 ---
ASA Classification* ASA Classification ASA Classification: 2 Assessment & Plan Anesthesia* Anesthesia Assessment Anesthesia Assessment: Discussed sedation and/or anesthesia options, risks, benefits, and alternatives with patient/parents/legal guardian/POA. Questions invited. The patient/parents/legal guardian/POA seems to understand and agrees to proceed with anesthesia plan. Reviewed the physical assessment, medical history, allergy history and patient home medications list prior to surgery/procedure/anesthetic and documented any changes. Performed airway and anesthesia risk assessments. 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 When Was Last Pacemaker Check QUESTION #4 FULL TEXT: You/Your Family Experience fever (hyperthermia) with Anesthesia Last Oral Intake Last Oral intake: Last Oral Intake NPO since 02:30 03/05/25 06:04 Meds taken in AM with sips of No 03/05/25 06:04 water? Meds patient instructed to take am of surgery Any additional information?: Yes NPO since: 02:30 (Patient finished prep at 2:30 AM.) Meds taken in AM with sips of water?: No PONV PONV - manufacturing industrial engineer: PONV - manufacturing industrial engineer Female Yes 03/03/25 09:55 HX of Motion Sickness Yes 03/03/25 09:55 HX of N/V After Surgery No 03/03/25 09:55 Non-Smoker Yes 03/03/25 09:55 Duration of Surgery greater No 03/03/25 09:55 than 60 minutes Number of Risk Factors 3 03/03/25 09:55 PONV Score Moderate Risk 03/03/25 09:55 Height & Weight Height & Weight: Anesthesia: Height & Weight Height 5 ft 4 in 03/05/25 06:04 Weight: 99 kg 03/05/25 06:04 Body Mass Index (BMI) 37.4 03/05/25 06:04 Respiratory Assessment Respiratory Assessment - manufacturing industrial engineer: Respiratory Tract Infection Hx - manufacturing industrial engineer Hx Respiratory Tract Infection No 03/03/25 09:55 STOP Sleep Apnea STOP Sleep Apnea - manufacturing industrial engineer: STOP Sleep Apnea - manufacturing industrial engineer Hx Hypertension No 03/03/25 09:55 Hx Sleep Apnea No 03/03/25 09:55 CPAP BIPAP Do you snore loudly (louder No 03/03/25 09:55 than talking or can be heard Do you often feel tired/ No 03/03/25 09:55 fatigued/ sleepy during daytime? Has anyone observed you stop No 03/03/25 09:55 breathing during sleep? STOP Results Negative 03/03/25 09:55 QUESTION #5 FULL TEXT : Do you snore loudly (louder than talking or can be heard through closed doors)? 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 Specify any problems Hx of Preganancy in last 3 No 03/03/25 09:55 Months Nurse Filling Out Transfusion VCHRISTIN 03/03/25 09:55 & Questions: Date: 03/03/25 03/03/25 09:55 Time: 09:57 03/03/25 09:55 Patient unable to answer at this time (ie. confused, unrespo /Reproduction History /Reproductive History - manufacturing industrial engineer: /Reproductive Hx- manufacturing industrial engineer Hx Now No 03/03/25 09:55 Gestational Age (in weeks): EDC: Hx Hx Para Hx Section SAB No 03/03/25 09:55 Active Medications Active Medications: Current Medications Generic Name Dose Route Start Last Admin Trade Name Freq PRN Reason Stop Dose Admin Lactated Ringer's 1,000 mls @ 15 mls/hr 03/05/25 06:15 03/05/25 06:14 IV 15 mls/hr .Q48H EVE Administration PFSH Medical History Normal Holter exam Wears glasses Pulmonary embolism History of diverticulitis Non-smoker CPAP (continuous positive airway pressure) dependence Sleep apnea Cardiology follow-up encounter History of irregular heartbeat Vitamin D deficiency Tinnitus Vertigo Thyromegaly T12 vertebral fracture Split S2 (second heart sound) Rectal bleeding PCOS (polycystic ovarian syndrome) Parathyroid adenoma AMOR (obstructive sleep apnea) Migraine with aura Hyperphosphatemia HLD (hyperlipidemia) Hemorrhoid Dizziness DDD (degenerative disc disease), lumbar Chronic kidney disease, stage 3a Acute low back pain without sciatica Left nephrolithiasis LUQ pain Home Medications Medication Instructions Recorded Last Taken Type cholecalciferol (vitamin D3) 50 50 mcg PO QDAY 01/24/25 03/02/25 History mcg (2,000 unit) capsule multivitamin 1 tab PO QAM 01/24/25 03/02/25 History dicyclomine 20 mg tablet 20 mg PO TID PRN abdominal pain 01/27/25 Unknown Rx #20 tabs Allergy/AdvReac Type Severity Reaction Status Date / Time bacitracin Allergy Intermediate Other Verified 03/05/25 06:03 Family History Father Hypertension HLD (hyperlipidemia) Surgical History History of removal of skin mole S/P left knee arthroscopy Social History Smoking Status: Never smoker alcohol intake: current alcohol intake frequency: a few times a month Review of Systems (Anesthesia) ROS Narrative System reviewed and no additional complaints, except as documented.
--- NOTE | 2025-03-05 06:30 | COLBX_PTH ---
PATIENT: LUC GARCIA LOC: EN U#:[id number] AGE/SX: 39/F ROOM: RE03/05/[address]: Dr. Chad Chavarria DO : 1985 BED: DIS: 03/05/2025 SPEC #: [id number] RECD: 03/05/25 08:00 STATUS: RADHA SAMMI #: [id number] PRASANNA: 03/05/25 06:[address]: Chad Chavarria DEPT: SURGICAL PATHOLOGY RECD BY: Yogesh Grant ENTERED: 03/05/25 10:41 SP TYPE: COLON BX GIANLUCA DR: Dr. Royce Edge DO Tissues: A - Ileum, NOS B - Sigmoid colon biopsy Procedures: Surgery Specimen Level IV HEADER OPERATION: Colonoscopy with biopsy PRE-OP DIAGNOSIS: Diverticulitis large intestine without perforation or abscess with bleeding TISSUE SUBMITTED: A- Terminal ileum biopsy, B- Sigmoid colon biopsy MICROSCOPIC DIAGNOSIS A. Terminal ileum, biopsy: - no specific pathologic change. B. Sigmoid colon, biopsy: - no specific pathologic change. MICROSCOPIC DESCRIPTION Slides are reviewed. GROSS DESCRIPTION A. Received in fixative is one container labeled with the patient's name and designated "Terminal ileum biopsy." The specimen consists of one irregular fragment of light bowers soft tissue that measures 0.7 cm. The specimen is totally submitted in one cassette. B. Received in fixative is one container labeled with the patient's name and designated "Sigmoid colon biopsy." The specimen consists of three irregular fragments of light bowers soft tissue that in aggregate measure 0.2 to 0.3 cm. The specimen is totally submitted in one cassette. [place] 03/05/2025 CPT:02756h1
--- NOTE | 2025-03-05 06:33 | HP.PCM_ITS ---
[facility] - General General Date of Admission: 03/05/25 Date of Service: 03/05/25 Chief Complaint: GI bleed [facility] Narrative LUC GARCIA, is a 39 F who presents regarding concerns for repeat diverticulitis. Referral received from general surgery for a colonoscopy to be completed prior to considering partial hemicolectomy due to recurrent episodes of diverticulitis in the same area of the colon. She had CTs of the abdomen and pelvis in July 2024 and November 2024, per "both demonstrated evidence of focal diverticulitis of the distal left colon/ proximal sigmoid. The inflammatory changes are much more visible and pronounced on the second CT in November which correlates with her symptoms which were significantly more severe in November when compared to July." She reports having gallstones without inflammation, digestive complaints, or pain in that area. In December she was prescribed a 10 day treatment regimen of Cipro and Flagyl for the colitis, and then subsequently needed drug therapy for a severe vaginal yeast infection. She denies difficulty chewing and swallowing, heartburn, reflux, nausea, emesis, abdominal bloating, constipation since starting daily fiber supplementation, diarrhea, hematochezia, and melena. Her last colonoscopy was in 2022 for hematochezia, found bleeding internal hemorrhoid which was removed and a single polyp that came back as a tubular adenoma. She does report chronic kidney disease stage III, which is being investigated. 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 She reports they suspect chronic NSAID use for the renal impairment. [facility] Medical History Normal Holter exam Wears glasses Pulmonary embolism History of diverticulitis Non-smoker CPAP (continuous positive airway pressure) dependence Sleep apnea Cardiology follow-up encounter History of irregular heartbeat Vitamin D deficiency Tinnitus Vertigo Thyromegaly T12 vertebral fracture Split S2 (second heart sound) Rectal bleeding PCOS (polycystic ovarian syndrome) Parathyroid adenoma AMOR (obstructive sleep apnea) Migraine with aura Hyperphosphatemia HLD (hyperlipidemia) Hemorrhoid Dizziness DDD (degenerative disc disease), lumbar Chronic kidney disease, stage 3a Acute low back pain without sciatica Left nephrolithiasis LUQ pain Home Medications Medication Instructions Recorded Last Taken Type cholecalciferol (vitamin D3) 50 50 mcg PO QDAY 5 03/02/25 History mcg (2,000 unit) capsule multivitamin 1 tab PO QAM 01/24/25 History dicyclomine 20 mg tablet 20 mg PO TID PRN abdominal p ain 01/27/25 Unknown Rx #20 tabs Allergy/AdvReac Type Severity Reaction Status Date / Time bacitracin Allergy Intermediate Other Verified 03/05/25 06:03 Family History Father Hypertension HLD (hyperlipidemia) Surgical History History of removal of skin mole S/P left knee arthroscopy Social History Smoking Status: Never smoker alcohol intake: current alcohol intake frequency: a few times a month ROS Constitutional Constitutional: Denies fatigue, fever(s), poor appetite, weight gain or weight loss Gastrointestinal Gastrointestinal: Denies belching, bloating, change in bowel habits, change in stool character, chewing difficulty, coffee ground emesis, constipation, cramping, diarrhea, dyspepsia, dysphagia, early satiety, excessive flatus, fecal incontinence, heartburn, hematemesis, hematochezia, hemorrhoids, loose stools, melena, nausea, odynophagia, rectal bleeding, tenesmus, vomiting or weight changes Vital Signs Vital Signs Vital Signs: 03/05/25 06:04 03/05/25 06:04 03/05/25 06:26 Temperature 97.5 F L 97.5 F L Temperature Source Temporal Pulse Rate 63 63 Respiratory Rate 18 18 Respiratory Pattern Normal Blood Pressure 122/86 H 122/86 H Blood Pressure Mean 98 Blood Pressure Source Monitor Blood Pressure Position Semi-Fowlers Blood Pressure Location Left Arm Pulse Ox 98 98 Oxygen Delivery Method Room Air Room Air Weight Weight: 218 lb 4.122 oz Body Mass Index (BMI) 37.4 Physical Exam Const alert, oriented x3, no apparent distress and healthy appearing General Appearance: cooperative GI normal to inspection, nondistended, normoactive bowel sounds, soft to palpation, non-tender and non-distended Percussion: normal to percussion Rectal Exam: deferred Results Lab / Micro Data Labs: Laboratory Results - last 24 hr 03/05/25 05:45: Urine Test Negative Assessment & Plan Assessment/Plan (1) Diverticulosis large intestine w/o perforation or abscess w/bleeding: PLAN: Assessment and Plan Assessment and Plan (1) Diverticulosis large intestine w/o perforation or abscess w/bleeding: Status: Acute Medications: New dicyclomine 20 mg PO TID PRN 20 tabs 0RF abdominal pain Plan LUC GARCIA, is a 39 F who presents to the office today for establishment with I regarding concerns for repeat diverticulitis. * schedule colonoscopy * dicyclomine for abdominal pain * office FU 1wk post colonoscopy Coding Level of Care Code New Pt Off vis,new,level 2 Patient Type New History Comprehensive Exam Expanded Problem Focused Medical Decision Making Low Complexity Diagnoses Diverticulosis large intestine w/o perforation or abscess w/bleeding K57.31 Clinical Quality Measures
--- NOTE | 2025-03-05 07:11 | PCM.POST.ANE ---
Anesthesia: Postop Eval I Current Vital Signs Temperature: 98.3 F Pulse Rate: 68 Blood Pressure: 94/49 Respiratory Rate: 16 Pulse Ox: 98 Oxygen Delivery Method: Room Air Assessment Airway patent: Yes Spontaneous unlabored respirations: Yes Mental status: Awake and Calm nausea: No Vomiting: No Anesthesia Complication: No Fluid Hydration Crystalloid volume administer (ml): 400 Total IV fluid infused: 400 Progress Note Anesthesia document: Postop Eval 1 completed: Yes
--- NOTE | 2025-03-05 07:13 | OP.CCLET_ITS ---
03/05/2025 Royce Edge Do Re : Colonoscopy procedure for Eunice Diaz Dear Kely This procedure was performed on Wednesday, March 05, 2025. My impressions and recommendations are as follows: Impressions : - Hemorrhoids found on perianal exam. - Diverticulosis in the recto-sigmoid colon, in the sigmoid colon, in the ascending colon and in the cecum. - Congested mucosa in the sigmoid colon. Biopsied. - Congested mucosa in the terminal ileum. Biopsied. Recommendations : - Discharge patient to home. - Resume previous diet. - Continue present medications. - Await pathology results. - Repeat colonoscopy is recommended for surveillance. The colonoscopy date will be determined after pathology results from today's exam become available for review. My findings are described in the full procedure note, which is enclosed. If I can be of further assistance, please feel free to contact me at . Sincerely, Chad Chavarria DO 03/05/2025 7:12:23 AM This report has been signed electronically.
--- NOTE | 2025-03-05 07:13 | OP.COLON_ITS ---
Patient Name: Eunice Diaz Procedure Date: 03/05/2025 6:16 AM Date of : 1985 Age: 39 Procedure: Colonoscopy Indications: Hematochezia Providers: Chad Chavarria DO Referring MD: Royce Edge Do Medicines: Monitored Anesthesia Care Patient Profile: This is a 39 year old female. Refer to note in patient chart for documentation of history and physical. Last Colonoscopy: more than 10 years ago. Complications: No immediate complications. Procedure: Pre-Anesthesia Assessment: - Prior to the procedure, a History and Physical was performed, and patient medications and allergies were reviewed. The patient is competent. The risks and benefits of the procedure and the sedation options and risks were discussed with the patient. All questions were answered and informed consent was obtained. Patient identification and proposed procedure were verified by the physician in the pre-procedure area. Mental Status Examination: alert and oriented. Airway Examination: normal oropharyngeal airway and neck mobility. Respiratory Examination: clear to auscultation. CV Examination: normal. Prophylactic Antibiotics: The patient does not require prophylactic antibiotics. Prior Anticoagulants: The patient has taken no anticoagulant or antiplatelet agents. ASA Grade Assessment: II - A patient with mild systemic disease. After reviewing the risks and benefits, the patient was deemed in satisfactory condition to undergo the procedure. The anesthesia plan was to use monitored anesthesia care (MAC). Immediately prior to administration of medications, the patient was re-assessed for adequacy to receive sedatives. The heart rate, respiratory rate, oxygen saturations, blood pressure, adequacy of pulmonary ventilation, and response to care were monitored throughout the procedure. The physical status of the patient was re-assessed after the procedure. After I obtained informed consent, the scope was passed under direct vision. Throughout the procedure, the patient's blood pressure, pulse, and oxygen saturations were monitored continuously. The Colonoscope was introduced through the anus and advanced to the terminal ileum. The colonoscopy was performed without difficulty. The patient tolerated the procedure well. The quality of the bowel preparation was adequate. The terminal ileum, ileocecal valve, appendiceal orifice, and rectum were photographed. Scope In: 6:44:43 AM Scope Withdrawal Time 0 hours 10 minutes 40 seconds Scope Out: 7:01:53 AM Total Procedure Duration Time 0 hours 17 minutes 10 seconds Findings: Hemorrhoids were found on perianal exam. Multiple small-mouthed diverticula were found in the recto-sigmoid colon, sigmoid colon, ascending colon and cecum. An area of mildly congested mucosa was found in the sigmoid colon. Biopsies were taken with a cold forceps for histology. Verification of patient identification for the specimen was done. Estimated blood loss was minimal. A patchy area of the terminal ileum was congested. Biopsies were taken with a cold forceps for histology. Verification of patient identification for the specimen was done. Estimated blood loss was minimal. There was moderate spasm in the entire colon. External and internal hemorrhoids were found during retroflexion. The hemorrhoids were Grade II (internal hemorrhoids that prolapse but reduce spontaneously). Impression: - Hemorrhoids found on perianal exam. - Diverticulosis in the recto-sigmoid colon, in the sigmoid colon, in the ascending colon and in the cecum. - Congested mucosa in the sigmoid colon. Biopsied. - Congested mucosa in the terminal ileum. Biopsied. Recommendation: - Discharge patient to home. - Resume previous diet. - Continue present medications. - Await pathology results. - Repeat colonoscopy is recommended for surveillance. The colonoscopy date will be determined after pathology results from today's exam become available for review. Procedure Code(s): --- Professional --- 81355, Colonoscopy, flexible; with biopsy, single or multiple CPT copyright 2021 [employer]. All rights reserved. The codes documented in this report are preliminary and upon senior technical architect review may be revised to meet current compliance requirements. Chad Chavarria DO 03/05/2025 7:12:23 AM This report has been signed electronically. Number of Addenda: 0 Note Initiated On: 03/05/2025 6:16 AM
--- NOTE | 2025-03-05 18:35 | PCM.POSTANE2 ---
Anesthesia Postop Eval I Sum Postop Eval Completion status Anesthesia document: Postop Eval 1 completed: Yes Anesthesia Postop Eval I Summary Anesthesia Postop Eval I Summary: Anesthesia Postop Eval I: Assessment Summary Airway patent Yes 03/05/25 07:13 [email or web address] Spontaneous unlabored Yes 03/05/25 07:13 [email or web address] respirations Mental status Awake,Calm 03/05/25 07:13 [email or web address] nausea No 03/05/25 07:13 [email or web address] Vomiting No 03/05/25 07:13 [email or web address] Anesthesia Postop Eval I: Fluid Summary Crystalloid volume administer 400 03/05/25 07:13 [email or web address] (ml) Colloids volume administered ( ml) Blood Product volume administered (ml) Total IV fluid infused 400 03/05/25 07:13 [email or web address] Anesthesia Postop Eval I: Summary Notes Anesthesia Complication No 03/05/25 07:13 [email or web address] Anesthesia Complication Comment: Post-operative progress note Anesthesia: Postop Eval II Evaluation Mental status: Awake Pain Level: 0 nausea: No Vomiting: No
== END 2025-03-05 07:52 | disposition home or self-care (01) ==
LOC: EN 05:36 → AC 05:37
PROVIDERS: Anesthesiology; PCP Student in an Organized Health Care Education/Training Program; Referring Provider Student in an Organized Health Care Education/Training Program; Visit Provider Internal Medicine Gastroenterology
PROC: 0DJD8ZZ Inspection of Lower Intestinal Tract, Via Natural or Artificial Opening Endoscopic (ICD-10-PCS; CPT 45378; principal; 2025-03-05 06:25)
DX: K57.30 Diverticulosis of large intestine without perforation or abscess without bleeding (principal); N18.30 Chronic kidney disease, stage 3 unspecified; K64.1 Second degree hemorrhoids; Z86.711 Personal history of pulmonary embolism; K63.89 Other specified diseases of intestine; K64.4 Residual hemorrhoidal skin tags; E78.5 Hyperlipidemia, unspecified; G47.33 Obstructive sleep apnea (adult) (pediatric); Z99.89 Dependence on other enabling machines and devices
CPT/HCPCS: 45380; 81025; 88305; J2405